=== PATIENT | male | born 1940 | race Caucasian/White ===

== ENCOUNTER 2020-04-03 09:19 | Observation (INO) | payer MEDICARE, OTHER, SELFPAY ==
[2020-04-02 22:02] LABS: Glucose Point of Care 231 (65-105)
--- NOTE | 2020-04-02 22:03 | PC.NURSE ---
This patient, Oswaldo Espinosa, was admitted to Intensive Care Unit-11. Patient/family oriented to hospital policies and general routines including ID bracelet, bed and alarms, visiting hours, pain management, procedures, bathroom and other care routines, personal items, smoking policy, room service/diet, and visiting hours. Valuables list has been completed. Information on how to activate the Rapid Response Team has been discussed. Patient/Family are encouraged to report perceived risks to care and to ask questions if they do not understand what they are told or what they should do.
[2020-04-02 22:27] LABS: Anion Gap 14 mmol/L (8-16); Blood Urea Nitrogen 23 mg/dL (9-20); Calcium 9.4 mg/dL (8.4-10.2); Carbon Dioxide 19 mmol/L (22-30); Chloride 103 mmol/L (98-107); Estimated Glomerular Filt Rate > 60; Glucose 232 mg/dL (75-110); Magnesium 2.7 mg/dL (1.6-2.3); Phosphorus 3.1 mg/dL (2.5-4.5); Potassium 4.9 mmol/L (3.4-5.0); Sodium 136 mmol/L (137-145)
[2020-04-02 22:33] VITALS: BMI 25.9
[2020-04-02 22:41] LABS: Add Urine Microscopic? YES; Appearance Urine Clear (Clear); Bacteria Urine Trace /hpf; Bilirubin Urine Negative (Negative); Blood Urine Negative (Negative); Color Urine Straw (Yellow); Glucose Urine UA 3+ mg/dL (Negative); Ketones Urine 2+ mg/dL (Negative); Leukocyte Esterase Ur Negative LEU/UL (NEGATIVE); Mucus Urine Rare /lpf; Nitrate Urine Negative (Negative); Protein Urine Negative (Negative); Specific Grav Ur 1.026 (1.001-1.035); Urobilinogen Urine Negative mg/dL (<2.0); WBC Urine 0-3 /hpf (0-3)
[2020-04-02 22:53] VITALS: BP 148/77; PULSE 110; RESP 14; TEMP 36.9; O2SAT 100
[2020-04-02] MEDS: KCL 20 MEQ/D5/0.45% SOD CHL 1,000 ML 150 ML IV CONT (23:02)
[2020-04-02] MEDS: INSULIN HUMAN REGULAR (*BKC) 100 UNITS in SODIUM CHLORIDE 0.9% IV 99 ML IV CONT (23:02)
--- NOTE | 2020-04-02 23:08 | PM.IMHP ---
H&P: HPI History of Present Illness Date/Time: 04/02/20 23:08 Chief complaint: vomiting, high blood sugars Narrative: Oswaldo Espinosa is a 79 year old male with a past medical history of type 2 diabetes mellitus manage has type 1 with prior episodes of DKA who presented to [facility] due to nausea vomiting and high blood sugars. Source of information is records from outside facility and patient report. Patient is only a fair historian and seems recalcitrant to provide information. the patient reports that he thinks he may have missed his dose of Lantus the night before. The patient reported to the outside ER that he started having vomiting on the evening of the . His vomiting started after he had eaten lasagna. He is unsure if he had taken his Lantus the evening before. He denies any abdominal pain. He has not had any coffee-ground emesis or hematemesis. He denies any ill contacts. His did not become ill when eating the same meal. He states that he will intermittently forgets to take his Lantus but claims he does not have any difficulties with his memory.. He has been on insulin for his diabetes since the 1980s. He reports that his sugars have been running on the high side . he states that his glucoses have been running in the 200s. His hemoglobin A1c is currently 10.6 which correlates to a glucose of 258. He denies any dysuria or changes in urinary frequency. He has not had any cough congestion, rhinorrhea, odynophagia, dysphagia, headache or visual changes. He denies any loss of sense of taste or smell. He has not been having any fevers or chills. He does have decreased sensation to his feet but denies having any foot wounds. The patient's glucose on arrival to the outside facility was 743. His anion gap was 14. His potassium was elevated to 5.9. Sodium was 133. BUN was elevated 28 creatinine was normal at 1.12. He had a white count of 7200 hemoglobin of 12.7 with 215,000 platelets. He had 88% neutrophils and 5 bands. His UA demonstrated high glucose and high ketones but was otherwise unremarkable. His blood sugar prior to transfer to our facility was down to 252. Beta hydroxybutyrate level at the outside hospital was elevated 10.6 within normal cut off of 0.27 he had an ABG performed which demonstrated pH of 7.195 pCO2 36 PO2 of 54 bicarb of 13 the patient received 2 L normal saline bolus at the outside ER and was started on insulin drip. Review of Systems Review of Systems: Narrative: 12 systems were reviewed with pertinent positives and negatives per HPI. Except as documented in the HPI, all other systems were reviewed and are negative. [facility] Past Medical History Medical History (Updated 04/03/20 @ 06:57 by Wanda Carcamo DO) Diabetes mellitus, type II Treated as type 1 Diabetic peripheral neuropathy Essential hypertension GERD (gastroesophageal reflux disease) Hypercholesterolemia Surgical History Surgical History (Updated 04/02/20 @ 23:47 by Wanda Carcamo DO) H/O bilateral cataract extraction Hx of tonsillectomy Family History Family History (Updated 04/03/20 @ 03:33 by Wanda Carcamo DO) Father Lymphoma Mother Diabetes mellitus Social History Social History (Updated 04/03/20 @ 03:34 by Wanda Carcamo DO) Smoking status: Never smoker Alcohol intake: current Alcohol use details: He drinks an occasional glass a wine with dinner about once a month. Substance use: never Living arrangements: with family Additional living arrangements comments: he lives with his of 40 years in [facility]. He has 2 adult children who are healthy. 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 Spiritual care concerns: No Meds Home Medications and Allergies Home Medications M
[2020-04-02 23:22] LABS: Hemoglobin A1C 10.6 % (<5.7)
[2020-04-03] VITALS (7 sets, daily range): BP systolic 112–155; BP diastolic 58–88; PULSE 77–110; RESP 14–22; TEMP 36.2–36.9; O2SAT 90–96
[2020-04-03 00:05] LABS: Glucose Point of Care 225 (65-105)
[2020-04-03 01:03] LABS: Glucose Point of Care 211 (65-105)
[2020-04-03 02:04] LABS: Glucose Point of Care 202 (65-105)
[2020-04-03 02:50] LABS: Anion Gap 6 mmol/L (8-16); Blood Urea Nitrogen 21 mg/dL (9-20); Calcium 8.2 mg/dL (8.4-10.2); Carbon Dioxide 23 mmol/L (22-30); Chloride 105 mmol/L (98-107); Estimated CRCL calculation 88 ml/min; Estimated Glomerular Filt Rate > 60; Glucose 224 mg/dL (75-110); Potassium 4.5 mmol/L (3.4-5.0); Sodium 134 mmol/L (137-145)
[2020-04-03 03:24] LABS: Glucose Point of Care 181 (65-105)
[2020-04-03] MEDS: SODIUM CHLORIDE 0.9% IV 1,000 ML 100 ML IV CONT (04:33)
[2020-04-03] MEDS: INSULIN GLARGINE (*BKC) 100 UNITS/ML 20 UNITS SUB-Q ×2 (05:08→17:27)
[2020-04-03 07:37] LABS: Anion Gap 8 mmol/L (8-16); Blood Urea Nitrogen 20 mg/dL (9-20); Calcium 8.5 mg/dL (8.4-10.2); Carbon Dioxide 22 mmol/L (22-30); Chloride 103 mmol/L (98-107); Estimated CRCL calculation 76 ml/min; Estimated Glomerular Filt Rate > 60; Glucose 181 mg/dL (75-110); Potassium 4.2 mmol/L (3.4-5.0); Sodium 133 mmol/L (137-145)
[2020-04-03 08:16] LABS: Glucose Point of Care 191 (65-105)
--- NOTE | 2020-04-03 08:38 | WPDCNINT ---
Assessment and Plan Assessment and plan (1) DKA, type 2, not at goal: Code(s): E11.10 - Type 2 diabetes mellitus with ketoacidosis without coma Status: Acute Assessment and Plan: patient presented with nausea, vomiting, hyperglycemia at [facility], found to be in DKA and was transferred to the ICU at [facility] for further management. - Was started on insulin infusion and given IV fluids here in the ICU - anion gap has closed, blood sugars better - patient was transition to long-acting insulin and sliding scale insulin along with Accu-Cheks - hemoglobin A1c is 10.6 - patient may have been a little noncompliant with his insulin, - started on diabetic diet (2) GERD (gastroesophageal reflux disease): Code(s): K21.9 - Gastro-esophageal reflux disease without esophagitis Status: Acute Assessment and Plan: continue Protonix (3) Hypercholesteremia: Code(s): E78.00 - Pure hypercholesterolemia, unspecified Status: Acute Assessment and Plan: continue atorvastatin (4) Essential (primary) hypertension: Code(s): I10 - Essential (primary) hypertension Status: Acute Assessment and Plan: continue atenolol Additional Plan discussed with patient updated with his condition and plan of care. He is aware that he would be transferring to medical floor code status: Full code Critical time spent: 38 minutes Due to a high probability of clinically significant, life threatening deterioration, the patient required my highest level of preparedness to intervene emergently and I personally spent this critical care time directly and personally managing the patient. This critical care time included obtaining a history; examining the patient; pulse oximetry; ordering and review of studies; arranging urgent treatment with development of a management plan; evaluation of patient's response to treatment; frequent reassessment; and discussions with other providers. It was exclusive of separately billable procedures and treating other patients and teaching time. Please see Assessment and Plan section and the rest of the note for further information on patient assessment and treatment Front End Drupal Developer Consult Note Consult date: 04/03/20 Time Seen: 06:54 Reason for consult: DKA, nausea, vomiting, elevated blood sugars HPI: Oswaldo Espinosa is a 79 year old male with significant past medical history of diabetes on insulin, diabetic peripheral neuropathy, essential hypertension, GERD, hypercholesterolemia presented to the ED at [facility] on 04/02/2020 ED according the records started vomiting after he ate some lasagna. Patient may have for guarded take his Lantus. His denies any coffee-ground emesis or hematemesis. Patient did say that he intermittently forgets to take his Lantus. His sugars have been running on the higher side recently. He denies any dysuria, changes in urinary frequency. Very cough, congestion, chest pain, diarrhea, abdominal pain. In the ED patient also denies any fevers or chills. Blood sugars at the outside facility 743 within and gap 14. Patient is given IV fluids and started on insulin drip after he arrived at [facility]. Patient seen and examined this morning. Anion gap is closed, patient has been transitioned to long-acting insulin and sliding scale insulin. Patient denies any nausea, vomiting, abdominal pain, chest pain, shortness of breath, cough. Patient has been afebrile, adequate urine output, hemodynamically stable Review of Systems Review of Systems: All systems reviewed & are unremarkable except as noted in HPI and below PMFSH Past Medical History Medical History (Updated 04/03/20 @ 08:50 by Nomi Gusman MD) Diabetes mellitus, type II Treated as type 1 Diabetic peripheral neuropathy Essential hypertension GERD (gastroesophageal reflux disease) Hypercholesterolemia Surgical History Surgical History
[2020-04-03] MEDS: PANTOPRAZOLE 40 MG TABLET PO (09:24)
[2020-04-03] MEDS: atenoloL 25 MG TABLET 50 MG PO ×2 (09:24→17:20)
[2020-04-03] MEDS: ASPIRIN 81 MG CHEWABLE TABLET PO (09:25)
[2020-04-03] MEDS: INSULIN ASPART (*BKC) 100 UNITS/ML 7 UNITS SUB-Q ×3 (09:26→17:21)
[2020-04-03 11:28] LABS: Glucose Point of Care 234 (65-105)
[2020-04-03] MEDS: INSULIN ASPART (*BKC) 100 UNITS/ML SUB-Q (12:06)
--- NOTE | 2020-04-03 16:10 | PC.NURSE ---
This patient, Oswaldo Espinosa, was transferred to [facility] on 04/03/20 at 1550. Personal belongings sent with patient. Report given to Tatianna COHEN. Appropriate documentation sent with patient.
[2020-04-03 16:58] LABS: Glucose Point of Care 149 (65-105)
--- NOTE | 2020-04-03 17:34 | PM.IMPN ---
Progress Note: A&P Assessment and Plan (1) DKA, type 2, not at goal: Code(s): E11.10 - Type 2 diabetes mellitus with ketoacidosis without coma Status: Acute Assessment and Plan: due to non adherence with medication regimen. DKA resolved pt now on medical floor. (2) Apnea: Code(s): R06.81 - Apnea, not elsewhere classified Status: Acute Assessment and Plan: patient denies a history of obstructive sleep apnea. Will order apnea link on discharge Subjective Date/time seen: 04/03/20 17:34 Interval history: 79 year old male with a past medical history of type 2 diabetes mellitus manage has type 1 with prior episodes of DKA who presented to [facility] due to nausea vomiting and high blood sugars. Pt has been transfered out of icu to the medical floor hopeful discharge tomorrow. Review of Systems Review of Systems: All systems reviewed & are unremarkable except as noted in HPI and below Exam Const: General: cooperative and healthy appearing; No in distress Nutritional Appearance: overweight Orientation/consciousness: oriented to person HENMT: Head: normal to inspection Resp: Effort & Inspection: no respiratory distress Auscultation: no rhonchi and no wheezes Cardio: Rate: regular rate Rhythm: regular rhythm GI: Inspection: normal to inspection GI Palp: No abdominal tenderness, No Guarding due to palpation present (GI) and No Hepatomegaly present Auscultation: normal bowel sounds Neuro: General: oriented to person Objective Data Vital Signs Vital Signs: Vital Signs - 24 hr 04/02/20 22:53 04/03/20 00:00 04/03/20 02:00 Temperature 36.9 C Pulse Rate 110 H 109 H 110 H Respiratory Rate 14 18 Blood Pressure 148/77 H 137/88 Pulse Oximetry 100 92 04/03/20 04:00 04/03/20 06:00 04/03/20 08:00 Temperature 36.9 C Pulse Rate 100 87 103 H Respiratory Rate 18 22 H 14 Blood Pressure 129/70 155/82 H 152/83 H Pulse Oximetry 90 94 92 04/03/20 17:20 Temperature Pulse Rate 82 Respiratory Rate Blood Pressure Pulse Oximetry Intake/Output Intake/Output: Intake & Output 03/31/20 04/01/20 04/02/20 04/03/20 23:59 23:59 23:59 23:59 Intake Total 1840 Output Total 800 Balance 1040 Meds/Results Medications: Active Medications Generic Name Dose Route Start Last Admin Trade Name Freq PRN Reason Stop Dose Admin Aspirin 81 mg 04/03/20 09:00 04/03/20 09:25 Aspirin Chewable PO 81 mg DAILY DAIANA Administration Atenolol 50 mg 04/03/20 09:00 04/03/20 17:20 Tenormin PO 50 mg BID DAIANA Administration Atorvastatin Calcium 20 mg 04/03/20 21:00 Lipitor PO HS DAIANA Dextrose 12.5 gm 04/02/20 20:35 Dextrose 50% Syringe IV PUSH PRN PRN Hypoglycemia Protocol Glucagon 1 mg 04/02/20 20:35 Glucagon For Inj IM PRN PRN Hypoglycemia Protocol Glucose 15 gm 04/02/20 20:35 Glutose 15 PO PRN PRN Hypoglycemia Protocol Dextrose 1,000 mls @ 100 mls/hr 04/02/20 20:35 Dextrose 5% 1,000 Ml IVPB PRN PRN Hypoglycemia Protocol Insulin Aspart 7 units 04/03/20 08:00 04/03/20 17:21 Novolog SUB-Q 7 units TIDWM DAIANA Administration Insulin Aspart 3 - 6 units 04/03/20 08:00 04/03/20 17:22 Novolog SUB-Q Not Given TIDWM DAIANA Protocol Insulin Glargine 20 units 04/03/20 18:00 04/03/20 17:27 Lantus SUB-Q 20 units QPM DAIANA Administration Pantoprazole Sodium 40 mg 04/03/20 09:00 04/03/20 09:24 Protonix PO 40 mg QAM DAIANA Administration Labs Labs: Laboratory Results - last 24 hr 04/02/20 04/02/20 04/02/20 22:00 22:04 22:24 Sodium 136 L Potassium 4.9 Chloride 103 Carbon Dioxide 19 L Anion Gap 14 BUN 23 H D Creatinine 0.80 Estim Creat Clear Calc Not Reportable Estimated GFR > 60 Glucose 232 H POC Capillary Glucose 231 H Hemoglobin A1c Calcium 9.
[2020-04-03] MEDS: ATORVASTATIN 20 MG TABLET PO (20:07)
[2020-04-03 21:24] LABS: Glucose Point of Care 294 (65-105)
[2020-04-04 05:40] VITALS: BP 128/63; PULSE 67; RESP 16; TEMP 35.9; O2SAT 96
[2020-04-04 06:14] LABS: Anion Gap 6 mmol/L (8-16); Blood Urea Nitrogen 20 mg/dL (9-20); Calcium 8.5 mg/dL (8.4-10.2); Carbon Dioxide 26 mmol/L (22-30); Chloride 102 mmol/L (98-107); Estimated CRCL calculation 67 ml/min; Estimated Glomerular Filt Rate > 60; Glucose 191 mg/dL (75-110); Potassium 3.8 mmol/L (3.4-5.0); Sodium 134 mmol/L (137-145)
[2020-04-04 08:06] LABS: Glucose Point of Care 151 (65-105)
[2020-04-04] MEDS: INSULIN ASPART (*BKC) 100 UNITS/ML 7 UNITS SUB-Q ×2 (08:39→11:42)
[2020-04-04 08:41] VITALS: PULSE 72
[2020-04-04] MEDS: atenoloL 25 MG TABLET 50 MG PO (08:41)
[2020-04-04] MEDS: ASPIRIN 81 MG CHEWABLE TABLET PO (08:41)
[2020-04-04] MEDS: PANTOPRAZOLE 40 MG TABLET PO (08:42)
[2020-04-04 10:15] VITALS: BMI 25.8
--- NOTE | 2020-04-04 11:13 | PM.DS ---
DS: Admitting Diagnosis Admitting Diagnosis Admitting Diagnosis: vomiting, high blood sugars DS: Discharge Diagnosis Discharge Diagnosis (1) DKA, type 2, not at goal: Code(s): E11.10 - Type 2 diabetes mellitus with ketoacidosis without coma Status: Acute Assessment and Plan: Due to non adherence with medication regimen. DKA resolved, pt out of icu, pt now on medical floor. Continue home regime, pt is stable for discharge. (2) Apnea: Code(s): R06.81 - Apnea, not elsewhere classified Status: Acute Assessment and Plan: Patient denies a history of obstructive sleep apnea. Will order apnea link on discharge DS: Summary Time Spent with Patient Time attestation: Total time spent providing and/or coordinating discharge services:38 minutes on day of discharge Exam Const: General: cooperative and healthy appearing; No in distress Nutritional Appearance: overweight Orientation/consciousness: oriented to person HENMT: Head: normal to inspection Resp: Effort & Inspection: no respiratory distress Auscultation: no rhonchi and no wheezes Cardio: Rate: regular rate Rhythm: regular rhythm GI: Inspection: normal to inspection Auscultation: normal bowel sounds Neuro: General: oriented to person DS: Data Data Completed and Pending Labs on day of discharge: Labs from last 24 hours 04/04/20 04/04/20 04/03/20 07:48 05:51 20:05 Sodium 134 L Potassium 3.8 Chloride 102 Carbon Dioxide 26 Anion Gap 6 L BUN 20 Creatinine 0.80 Estim Creat Clear Calc 67 Estimated GFR > 60 Glucose 191 H POC Capillary Glucose 151 H 294 H Calcium 8.5 04/03/20 04/03/20 16:55 11:26 Sodium Potassium Chloride Carbon Dioxide Anion Gap BUN Creatinine Estim Creat Clear Calc Estimated GFR Glucose POC Capillary Glucose 149 H 234 H Calcium Discharge Plan Discharge Attending physician on discharge: Michelle Vera Discharging Clinician: Michelle Vera Anticipated Discharge Date/Time: 04/04/20 11:09 Patient Disposition: Home, Self-Care Activity: as tolerated Diet: diabetic Discharge Instructions: PCP to order sleep apnea test for patient at patients convenience I think it would be beneficial Patient Instructions: Antibiotic Form Stand Alone Forms: General Discharge Information Follow-up/Referrals: PHYSICIAN,REIMBURSEMENT COUNSELOR [Primary Care Provider] - (PCP [facility] D[facility] ) Discharge Medications: Continued atenolol 25 mg Tablet 50 mg PO BID RF: 0 aspirin 81 mg Tablet,Chewable 81 mg PO DAILY RF: 0 Lantus U-100 Insulin 100 unit/mL Solution 20 unit SUBCUT QPM RF: 0 insulin aspart U-100 [Novolog U-100 Insulin aspart] 100 unit/mL Solution 7 unit SUBCUT TID RF: 0 atorvastatin 20 mg Tablet 20 mg PO HS RF: 0 pantoprazole 40 mg Tablet,Delayed Release (Dr/Ec) 40 mg PO QAM RF: 0 Date of admission: 04/02/20 21:45 Primary Care Provider: PHYSICIAN,REIMBURSEMENT COUNSELOR Admitting Provider: Wanda Carcamo Attending physician on admission: Wanda Carcamo Condition: Stable
[2020-04-04] MEDS: INSULIN ASPART (*BKC) 100 UNITS/ML SUB-Q (11:42)
[2020-04-04 12:01] LABS: Glucose Point of Care 214 (65-105)
== END 2020-04-04 14:00 | disposition home or self-care (01) ==
LOC: ANHICU 13:32 → ANH2MED 18:09 → ANHICU 04-07 16:54
PROVIDERS: Admitting Provider Internal Medicine; Visit Provider Family Medicine
DX: E11.10 Type 2 diabetes mellitus with ketoacidosis without coma (principal); R06.81 Apnea, not elsewhere classified; E11.42 Type 2 diabetes mellitus with diabetic polyneuropathy; E78.00 Pure hypercholesterolemia, unspecified; I10 Essential (primary) hypertension; K21.9 Gastro-esophageal reflux disease without esophagitis; Z79.4 Long term (current) use of insulin
CPT/HCPCS: 36415; 80048; 81001; 83036; 83735; 84100; 94762; 96365; 96366; 96368; A9270; G0378; G0379; J1815; J3480; J7030

== ENCOUNTER 2021-04-20 14:46 | Emergency (ER) | payer MEDICARE, OTHER, SELFPAY ==
--- NOTE | ~2021-04-20 | CT_ITS ---
EXAMINATION: CT brain wo con EXAM DATE: 04/20/2021 16:52 INDICATION: Dizziness. TECHNIQUE: Spiral CT of the head was performed without contrast. Axial, coronal and sagittal images were reviewed. The dose-length product (DLP) for this examination was 605.33 mGy-cm. The exposure w as tailored according to patient size, and iterative reconstruction (ASIR) was used as additional dos e reduction technique. There is no prior study for comparison. FINDINGS: There is no acute intraparenchymal hemorrhage. No evidence of intraparenchymal brain mass lesion. No evidence of acute infarction. Please note that initial head CT has limited sensitivity f or small or acute infarctions. Punctate old left thalamic lacunar infarction. There is mild to mode rate periventricular and subcortical hypodensity, nonspecific but probably related to small vessel is chemic disease. There is moderate prominence of the sulci and ventricles related to cerebral atroph y. There is intracranial carotid arteriosclerosis. There are no extra-axial collections. There is no mass effect or midline shift. Patient has had bilateral ocular lens surgery. Soft tissue is unr emarkable. The visualized sinuses and mastoid air cells are well aerated. IMPRESSION: 1. No acute intracranial findings. 2. Chronic age related findings. 3. Old left thalamic lacunar infarction. Reviewed, dictated and finalized at location B.
--- NOTE | ~2021-04-20 | XR_ITS ---
EXAMINATION: XR chest 2V EXAM DATE: 04/20/2021 15:39 INDICATION: Weakness, dizziness, diaphoretic today HX essential hypertension. TECHNIQUE: Frontal and lateral projections of the chest obtained and reviewed. There is no prior betzaida dy for comparison. FINDINGS: The lungs are clear. There are no pleural effusions. The cardiomediastinal silhouette is within normal limits. There is no pneumothorax suspected. The bones and soft tissues are unremarkab le. IMPRESSION: No acute cardiopulmonary findings. Reviewed, dictated and finalized at location B.
[2021-04-20 14:56] LABS: Glucose Point of Care 233 mg/dl (65-105)
[2021-04-20 15:03] VITALS: BP 123/70; PULSE 70; RESP 17; TEMP 36.3; O2SAT 98
--- NOTE | 2021-04-20 15:21 | ECG_ITS ---
Measurements Intervals [place] Rate: 70 P: 55 PA: 182 QRS: 43 QRSD: 104 T: 68 QT: 441 QTc: 479 Interpretive Statements SINUS RHYTHM INCOMPLETE RIGHT BUNDLE BRANCH BLOCK BASELINE ARTIFACT- V2-V5 BORDERLINE ECG Electronically Signed On 04-20-2021 15:26:46 CDT by Rasta Knox D.O.
--- NOTE | 2021-04-20 16:08 | ED.WEAKNESS ---
HPI - Weakness General Chief complaint: Weakness Stated complaint: low bp Time Seen by Provider: 04/20/21 15:20 Source: patient Mode of arrival: EMS Limitations: no limitations History of Present Illness HPI Narrative: This is a 80 year old male that presents to the ER for an episode of lightheadedness today. Reports he was feeling kind of lightheaded going into a restaurant to eat. Reports he tried to eat something and had no appetite. Reports he felt like he needed to have a bowel movement so he went to the restroom. He continued to feel very lightheaded and they called EMS to have his evaluated. Reportedly patient was diaphoretic and had blood pressure in the 90s on arrival. Patient reports feeling generally unwell currently, but has no specific complaints. Denies fever, chest pain, shortness of breath, palpitations, vomiting, or dysuria. Related Data Home Medications Medication Instructions Recorded Confirmed aspirin 81 mg PO DAILY 07/02/19 04/02/20 atenolol 50 mg PO BID 07/02/19 04/02/20 Lantus U-100 Insulin 20 unit SUBCUT QPM 04/02/20 04/02/20 atorvastatin 20 mg PO HS 04/02/20 04/02/20 insulin aspart U-100 [Novolog 7 unit SUBCUT TID 04/02/20 04/02/20 U-100 Insulin aspart] pantoprazole 40 mg PO QAM 04/02/20 04/02/20 Allergies Allergy/AdvReac Type Severity Reaction Status Date / Time grass pollen Allergy Mild Nasal Verified 04/02/20 22:06 Discharge Review of Systems Review of Systems: CONSTITUTIONAL: Denies fever CARDIOVASCULAR: Denies chest pain, palpitations RESPIRATORY: Denies dyspnea. GASTROINTESTINAL: Denies abdominal pain, nausea, vomiting GENITOURINARY: Denies dysuria NEUROLOGIC: Reports generalized weakness. All systems reviewed & are unremarkable except as noted in HPI and below [facility] Past Medical History Medical History (Updated 04/20/21 @ 18:40 by Kiesha Wiggins PA-C) Diabetes mellitus, type II Treated as type 1 Diabetic peripheral neuropathy Essential hypertension GERD (gastroesophageal reflux disease) Hypercholesterolemia Surgical History Surgical History (Updated 04/02/20 @ 23:47 by Wanda Carcamo DO) H/O bilateral cataract extraction Hx of tonsillectomy Family History Family History (Updated 04/03/20 @ 03:33 by Wanda Carcamo DO) Father Lymphoma Mother Diabetes mellitus Social History Social History (Updated 04/03/20 @ 03:34 by Wanda Carcamo DO) Smoking status: Never smoker Alcohol intake: current Alcohol use details: He drinks an occasional glass a wine with dinner about once a month. Substance use: never Additional living arrangements comments: he lives with his of 40 years in [facility]. He has 2 adult children who are healthy. 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 Spiritual care concerns: No Exam Narrative: GENERAL: Elderly, well-nourished, and in no acute distress. HEAD: Normocephalic, atraumatic. EYES: PERRLA and EOMI. ENT: Nares clear, no rhinorrhea or epistaxis. Mucous membranes moist. Oropharynx without tonsillar hypertrophy exudate or other lesions. Bilateral TMs pearly arteaga non-bulging NECK: Supple. No adenopathy or masses. No carotid bruits or JVD CHEST: Clear to auscultation. No respiratory distress. No wheezes rales or rhonchi HEART: Regular rate and rhythm. No murmur heard. Normal peripheral pulses. ABDOMEN: Soft, nontender, nondistended, normal active bowel sounds. EXTREMITIES: Normal range of motion. No edema. Strength equal in bilateral upper and lower extremities (5/5) SKIN: Warm, dry, no rash. NEURO: No focal deficits. Alert and oriented x3. Cranial nerves II to XII grossly intact PSYCH: Normal mood and affect Course Vital Signs Vital signs: Vital Signs Temperature 97.4 F L 04/20/21 15:03 Pulse Rate 70 04/20/21 15:03
[2021-04-20] MEDS: SODIUM CHLORIDE 0.9% IV 1,000 ML 999 ML IV CONT (16:16)
--- NOTE | 2021-04-20 16:16 | PC.NURSE ---
Pt unable to give urine sample at this time. Informed pt of the importance of getting urine.
[2021-04-20 16:26] LABS: Basophils Percent Auto 0.5 % (0.2-1.2); Eosinophils Absolute Auto 0.1 K/mm3 (0-0.3); Eosinophils Percent Auto 1.2 % (0-4.4); Hematocrit 41.5 % (42.0-52.0); Hemoglobin 13.5 g/dL (14.0-18.0); Immature Granulocyte Absolute 0.03 K/mm3 (0.00-0.031); Immature Granulocyte Percent A 0.4 % (0-0.5); Lymphocytes Percent Auto 15.5 % (18.3-44.2); Mean Corpuscular HGB Conc 32.5 g/dl (32-36); Mean Corpuscular Volume 89.1 fl (80-100); Mean Platelet Volume 11.2 fl (7.4-10.4); Monocytes Absolute Auto 0.6 K/mm3 (0.1-0.6); Monocytes Percent Auto 7.3 % (2.6-8.5); Neutrophils Absolute Auto 5.8 K/mm3 (1.3-6.7); Neutrophils Percent Auto 75.1 % (45.5-73.1); Platelet Count Result 199 k/mm3 (150-375); Red Blood Count 4.66 M/mm3 (4.6-6.20); Red Cell Distribution Width 12.6 % (11.5-14.5); White Blood Count 7.8 K/mm3 (4.5-10.0)
[2021-04-20 16:43] LABS: Alanine Aminotransferase 17 U/L (4-50); Albumin Level 4.2 g/dL (3.5-5.1); Alkaline Phosphatase 50 U/L (38-126); Anion Gap 15 mmol/L (8-16); Aspartate Amino Transferase 22 U/L (17-59); Bilirubin,Total 0.8 mg/dL (0.2-1.3); Blood Urea Nitrogen 26 mg/dL (9-20); Calcium 9.8 mg/dL (8.4-10.2); Carbon Dioxide 21 mmol/L (22-30); Chloride 101 mmol/L (98-107); Estimated CRCL calculation 49 ml/min; Estimated Glomerular Filt Rate > 60; Glucose 270 mg/dL (65-110); Potassium 3.6 mmol/L (3.4-5.0); Sodium 137 mmol/L (137-145)
[2021-04-20 17:21] VITALS: BP 144/79; PULSE 83; RESP 13; O2SAT 100
[2021-04-20 17:32] LABS: Lipase 23 U/L (23-300)
[2021-04-20 17:52] LABS: Add Urine Microscopic? YES; Appearance Urine Clear (Clear); Bilirubin Urine Negative (Negative); Blood Urine Negative (Negative); Color Urine Yellow (Yellow); Glucose Urine UA 3+ mg/dL (Negative); Ketones Urine Trace mg/dL (Negative); Leukocyte Esterase Ur Negative LEU/UL (Negative); Mucus Urine Rare /lpf; Nitrate Urine Negative (Negative); Protein Urine 1+ mg/dL (Negative); RBC Urine 0-2 /hpf (0-2); Squamous Epithelial Cell Urine Rare /hpf (Few); Urobilinogen Urine Negative mg/dL (<2.0); WBC Urine 0-3 /hpf
[2021-04-20 18:15] VITALS: BP 105/52; BP 111/64; BP 116/61; PULSE 85; PULSE 91
== END 2021-04-20 19:01 | disposition home or self-care (01) ==
PROVIDERS: Physician Assistant; Emergency Provider Family Medicine
DX: R55 Syncope and collapse (principal); K21.9 Gastro-esophageal reflux disease without esophagitis; E78.00 Pure hypercholesterolemia, unspecified; E11.42 Type 2 diabetes mellitus with diabetic polyneuropathy; Z79.4 Long term (current) use of insulin; Z79.82 Long term (current) use of aspirin; Z98.42 Cataract extraction status, left eye; Z98.41 Cataract extraction status, right eye; I45.10 Unspecified right bundle-branch block
CPT/HCPCS: 36415; 70450; 71046; 80053; 81001; 82948; 83690; 85025; 93005; 96360; 99284; J7030

== ENCOUNTER 2021-12-08 12:53 | Emergency (ER) | payer MEDICARE, OTHER, SELFPAY ==
[2021-12-08] VITALS (9 sets, daily range): BP systolic 108–142; BP diastolic 60–90; PULSE 65–78; RESP 16–18; O2SAT 92–100
--- NOTE | ~2021-12-08 | CT_ITS ---
EXAMINATION: CT brain wo con DATE: 12/08/2021 13:49 INDICATION: Dizziness. Somnolence. Weakness. TECHNIQUE: Computed tomography (CT) of the head was performed without intravenous contrast. The mA wa s adjusted according to patient size. Iterative reconstruction technique was employed. The dose-lengt h product was 605.33 mGy-cm. COMPARISON: Head CT 04/20/2021 FINDINGS: There is an old lacunar infarct in left thalamus. There are scattered areas of low attenuat ion in the cerebral white matter. There is no intracranial hemorrhage, acute infarction, or abnormal intracranial mass lesion. The ventricles are normal in size. There are likely changes of ocular lens replacement surgeries. There is mild mucosal thickening in the paranasal sinuses. There is a trace le ft mastoid effusion. IMPRESSION: 1. 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 2. Stable moderate nonspecific cerebral white matter disease, which likely represents chronic small v essel ischemic disease. Reviewed, dictated and finalized at location B. IMPRESSION: 1. 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 2. Stable moderate nonspecific cerebral white matter disease, which likely repr esents chronic small vessel ischemic disease.
--- NOTE | ~2021-12-08 | CT_ITS ---
EXAMINATION: CTA chest PE protocol DATE: 12/08/2021 16:22 INDICATION: hypoxia TECHNIQUE: Computed tomography angiography (CTA) of the chest was performed with 100 mL Omnipaque-350 intravenous contrast timed to evaluate the pulmonary arteries. Coronal maximum intensity projection 3D-reconstructions were created by the technologist. The dose-length product (DLP) was 360.69 mGy-cm. Automated exposure control and iterative reconstruction technique were employed. COMPARISON: None. FINDINGS: Study quality: . Pulmonary arteries: No pulmonary emboli detected. Thoracic aorta: Normal. Left vertebral artery origin off the arch. Lung parenchyma and airways: Centrilobular nodular opacities, most pronounced in the right lower lobe , also present to a lesser extent in the right middle lobe and left lower lobe, with additional tree- in-bud opacities. Scattered coarse reticular opacities/scar in the right lung base. Thoracic inlet, axillae and chest wall: 3 cm hypodense right thyroid lobe nodule. Mediastinum: Normal. Heart and pericardium: Normal. Coronary artery calcifications: Moderate. Pleura: Unremarkable. Upper abdomen: No significant finding. Bones: No acute osseous finding. IMPRESSION: No CT evidence of acute pulmonary embolus. Infectious/inflammatory changes in the lungs, as can be se en with hypersensitivity pneumonitis, respiratory bronchiolitis, or infectious airways disease. 3 cm right thyroid nodule, recommend nonemergent outpatient thyroid ultrasound for further evaluation. Reviewed, dictated and finalized at location K. IMPRESSION: No CT evidence of acute pulmonary embolus. Infectious/inflammatory changes in t he lungs, as can be seen with hypersensitivity pneumonitis, respiratory bronchi olitis, or infectious airways disease. 3 cm right thyroid nodule, recommend non emergent outpatient thyroid ultrasound for further evaluation.
--- NOTE | ~2021-12-08 | XR_ITS ---
EXAMINATION: XR chest 2V Exam Date/Time: 12/08/2021 14:30 CDT CLINICAL HISTORY: hypoxia, NAUSEA. Comparison: 04/20/21. RESULT: Lines, tubes, and devices: None. Lungs and pleura: Clear. Cardiomediastinal silhouette: Stable cardiomediastinal silhouette. Other: No acute osseous or upper abdominal finding. IMPRESSION: No acute cardiopulmonary process Reviewed, dictated and finalized at location K.
--- NOTE | 2021-12-08 13:01 | ECG_ITS ---
Measurements Intervals [place] Rate: 65 P: 44 MS: 209 QRS: 10 QRSD: 103 T: 69 QT: 438 QTc: 456 Interpretive Statements SINUS RHYTHM INCOMPLETE RIGHT BUNDLE BRANCH BLOCK BASELINE WANDER- V4 BORDERLINE ECG Electronically Signed On 12-08-2021 13:28:55 CDT by Rasta Knox D.O.
[2021-12-08 13:13] LABS: Glucose Point of Care 310 mg/dl (65-105)
--- NOTE | 2021-12-08 13:16 | PC.NURSE ---
Pt noted to be 76% on room air, placed on oxygen at 2 lpm nc and ERP selena called to evaluate.
[2021-12-08 13:28] LABS: Alveolar/Arterial O2 Gradient 90.7 mmHg; Base Excess ABG -2.2 mEq/l (+/-2.0); Device NASAL CANNULA; Fractional Inspired Oxygen 28 %; HCO3 ABG 23.2 mEq/l (22.0-26.0); Modified Allen's Test Pass; Oxygen Content ABG 17.6 %vol (16.0-22.0); Oxygen Saturation ABG 89.6 % (95.0-100.0); Oxyhemoglobin 90.2 % THb (90.0-100.0); PCO2 ABG 42.2 mmHg (35.0-45.0); PO2 ABG 59.1 mmHg (80.0-100.0); PO2 FiO2 Ratio Arterial Blood 2.11 %; Site Drawn RIGHT RADIAL; Total Hemoglobin 13.9 g/dL (12.0-18.0); pH ABG 7.358 (7.350-7.450)
--- NOTE | 2021-12-08 13:41 | ED.WEAKNESS ---
HPI - Weakness General Chief complaint: Weakness Stated complaint: blood sugar problem Time Seen by Provider: 12/08/21 13:14 Source: patient History of Present Illness HPI Narrative: Patient presents with weakness. Patient was at home and they noted elevated blood sugar to the 300 gave him a dose of insulin shortly after that patient felt weak and was acting different. His symptoms were not resolving so he came to the ER for evaluation. Patient reports he feels weak all over and feels dizzy has no other complaints. He denies any chest pain or shortness of breath denies any nausea or vomiting or diarrhea. He reports this morning he was feeling well denies any recent fevers, cough, congestion. Related Data Home Medications Medication Instructions Recorded Confirmed aspirin 81 mg PO DAILY 07/02/19 04/02/20 atenolol 50 mg PO BID 07/02/19 04/02/20 Lantus U-100 Insulin 20 unit SUBCUT QPM 04/02/20 04/02/20 atorvastatin 20 mg PO HS 04/02/20 04/02/20 insulin aspart U-100 [Novolog 7 unit SUBCUT TID 04/02/20 04/02/20 U-100 Insulin aspart] pantoprazole 40 mg PO QAM 04/02/20 04/02/20 Allergies Allergy/AdvReac Type Severity Reaction Status Date / Time grass pollen Allergy Mild Nasal Verified 04/02/20 22:06 Discharge Review of Systems Review of Systems: CONSTITUTIONAL: Denies fever, chills, or sweats. EYES: Denies visual changes, redness, or discharge. ENT: Denies rhinorrhea, congestion, sore throat, or otalgia. CARDIOVASCULAR: Denies chest pain, palpitations, or edema. RESPIRATORY: Denies cough or dyspnea. GASTROINTESTINAL: Denies abdominal pain, nausea, vomiting, or diarrhea. GENITOURINARY: Denies dysuria or hematuria. SKIN: Denies rash or itching. MUSCULOSKELETAL: Denies back pain, joint pain, or myalgia. NEUROLOGIC: Denies headache, numbness, or focal weakness. PSYCHIATRIC: Denies anxiety or depression. All systems reviewed & are unremarkable except as noted in HPI and below PMFSH Past Medical History Medical History Diabetes mellitus, type II Treated as type 1 Diabetic peripheral neuropathy Essential hypertension GERD (gastroesophageal reflux disease) Hypercholesterolemia Surgical History Surgical History H/O bilateral cataract extraction Hx of tonsillectomy Family History Family History Father Lymphoma Mother Diabetes mellitus Social History Social History Smoking status: Never smoker Alcohol intake: current Alcohol use details: He drinks an occasional glass a wine with dinner about once a month. Substance use: never Additional living arrangements comments: he lives with his of [address] [facility]. He has 2 adult children who are healthy. 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 Spiritual care concerns: No Exam Narrative: GENERAL: Well-appearing, well-nourished, and in no acute distress. Appears to be sleeping but easily awoke HEAD: Normocephalic, atraumatic. EYES: PERRLA and EOMI. ENT: Nares clear, no rhinorrhea or epistaxis. Mucous membranes moist. NECK: Supple. No masses. No JVD CHEST: Clear to auscultation. No respiratory distress. No wheezes rales or rhonchi HEART: Regular rate and rhythm. No murmur heard. Normal peripheral pulses. ABDOMEN: Soft, nontender, nondistended, normal active bowel sounds. EXTREMITIES: Normal range of motion. No edema. SKIN: Warm, dry, no rash. NEURO: No focal deficits. Alert and oriented x3. PSYCH: Normal mood and affect. Course Reevaluation(s) Reevaluation #1: Patient reports feeling much improved and has no complaints. Family reports
[2021-12-08 13:42] LABS: Basophils Absolute Auto 0.1 K/mm3 (0.0-0.1); Basophils Percent Auto 0.6 % (0.2-1.2); Eosinophils Absolute Auto 0.1 K/mm3 (0-0.3); Hematocrit 42.9 % (42.0-52.0); Hemoglobin 13.7 g/dL (14.0-18.0); Immature Granulocyte Absolute 0.02 K/mm3 (0.00-0.031); Immature Granulocyte Percent A 0.2 % (0-0.5); Lymphocytes Absolute Auto 1.39 K/mm3 (0.9-3.2); Lymphocytes Percent Auto 14.3 % (18.3-44.2); Mean Corpuscular HGB Conc 31.9 g/dl (32-36); Mean Corpuscular Volume 90.9 fl (80-100); Mean Platelet Volume 11.8 fl (7.4-10.4); Monocytes Absolute Auto 0.7 K/mm3 (0.1-0.6); Neutrophils Absolute Auto 7.5 K/mm3 (1.3-6.7); Neutrophils Percent Auto 76.9 % (45.5-73.1); Platelet Count Result 209 k/mm3 (150-375); Red Blood Count 4.72 M/mm3 (4.6-6.20); Red Cell Distribution Width 12.2 % (11.5-14.5); White Blood Count 9.7 K/mm3 (4.5-10.0)
[2021-12-08 13:52] LABS: INR 0.9; Prothrombin Time 12.2 Seconds (11.1-14.7)
[2021-12-08 13:55] LABS: Partial Thromboplastin Time 25.1 SECONDS (22.3-36.8)
[2021-12-08 14:26] LABS: Beta-Hydroxybutyrate/Acetoacetate 0.29 mmol/L (0.02-0.27)
--- NOTE | 2021-12-08 14:42 | PC.NURSE ---
, richard , call with update
[2021-12-08] MEDS: SODIUM CHLORIDE 0.9% IV 1,000 ML 999 ML IV CONT (14:45)
[2021-12-08 15:54] LABS: Alanine Aminotransferase 16 U/L (4-50); Albumin Level 3.9 g/dL (3.5-5.1); Alkaline Phosphatase 56 U/L (38-126); Anion Gap 4 mmol/L (8-16); Aspartate Amino Transferase 22 U/L (17-59); Bilirubin,Total 0.6 mg/dL (0.2-1.3); Blood Urea Nitrogen 24 mg/dL (9-20); Calcium 8.9 mg/dL (8.4-10.2); Carbon Dioxide 27 mmol/L (22-30); Chloride 102 mmol/L (98-107); Estimated CRCL calculation 48 ml/min; Estimated Glomerular Filt Rate > 60; Glucose 300 mg/dL (65-110); Potassium 4.5 mmol/L (3.4-5.0); Sodium 133 mmol/L (137-145)
[2021-12-08 17:22] LABS: Appearance Urine Clear (Clear); Bilirubin Urine Negative (Negative); Blood Urine Negative (Negative); Color Urine Yellow (Yellow); Glucose Urine UA 3+ mg/dL (Negative); Ketones Urine Trace mg/dL (Negative); Leukocyte Esterase Ur Negative LEU/UL (Negative); Nitrate Urine Negative (Negative); Protein Urine Negative (Negative); Urobilinogen Urine 0.2 mg/dL (<2.0)
[2021-12-08 17:32] LABS: Bacteria Urine Trace /hpf; Mucus Urine Rare /lpf; RBC Urine 0-2 /hpf (0-2); Squamous Epithelial Cell Urine Rare /hpf (Few); WBC Urine 0-3 /hpf
[2021-12-08 17:41] LABS: SARS-CoV-2 RNA PCR Negative
--- NOTE | 2021-12-08 17:45 | PC.NURSE ---
Pt able to ambulate with room air and no assistance.
[2021-12-08 17:49] LABS: Add Urine Microscopic? YES
== END 2021-12-08 18:09 | disposition home or self-care (01) ==
PROVIDERS: Emergency Medicine; Emergency Provider Emergency Medicine
DX: J18.9 Pneumonia, unspecified organism (principal); R09.02 Hypoxemia; Z20.822 Contact with and (suspected) exposure to COVID-19; E11.42 Type 2 diabetes mellitus with diabetic polyneuropathy; I10 Essential (primary) hypertension; K21.9 Gastro-esophageal reflux disease without esophagitis; E78.00 Pure hypercholesterolemia, unspecified; Z79.82 Long term (current) use of aspirin; Z79.4 Long term (current) use of insulin; Z98.42 Cataract extraction status, left eye; Z98.41 Cataract extraction status, right eye; R90.82 White matter disease, unspecified; I45.10 Unspecified right bundle-branch block
CPT/HCPCS: 36415; 36600; 70450; 71046; 71275; 80053; 81001; 82010; 82805; 82948; 85025; 85610; 85730; 93005; 96360; 99284; C9803; J7030; Q9967; U0003; U0005

== ENCOUNTER 2023-10-09 13:56 | Inpatient (IN) | payer MEDICARE, OTHER, SELFPAY ==
[2023-10-09] VITALS (22 sets, daily range): BP systolic 64–122; BP diastolic 36–62; PULSE 87–110; RESP 13–24; TEMP 35.4–36.8; O2SAT 51–100; BMI 26.6
--- NOTE | ~2023-10-09 | CT_ITS ---
EXAMINATION: CT brain wo con DATE: 10/09/2023 23:25 INDICATION: Cerebral vascular accident. TECHNIQUE: Computed tomography (CT) of the head was performed without intravenous contrast. The mA wa s adjusted according to patient size. Iterative reconstruction technique was employed. The dose-lengt h product was 681.00 mGy-cm. COMPARISON: Head CT 12/08/2021 FINDINGS: There is an old infarct in the left thalamus. There is an old infarct in left temporal lobe . There are scattered areas of low attenuation in the cerebral white matter. The ventricles are augustus l in size. There is mild mucosal thickening in the paranasal sinuses. There are likely changes of ocu lar lens replacement surgeries. The mastoid air cells are normal. IMPRESSION: 1. Old infarcts in the left thalamus and left temporal lobe. 2. Stable moderate nonspecific cerebral white matter disease, which likely represents chronic small v essel ischemic disease. Reviewed, dictated and finalized at location E. R VEHICLE CLERK IMPRESSION: 1. Old infarcts in the left thalamus and left temporal lobe. 2. Stable moderate nonspecific cerebral white matter disease, which likely repr esents chronic small vessel ischemic disease.
--- NOTE | ~2023-10-09 | XR_ITS ---
EXAMINATION: XR chest 1V portable Exam Date/Time: 10/09/2023 14:42 NETWORK SUPPORT SPECIALIST HISTORY: aspiration Comparison: 12/08/2021. RESULT: Lines, tubes, and devices: None. Lungs and pleura: Mild diffuse reticular opacities. 0.9 x 1.9 cm smoothly marginated ovoid opacity p rojecting over the right lower lung. Minimal streaky bibasilar scar/atelectasis. Cardiomediastinal silhouette: Stable. Other: No acute osseous or upper abdominal finding. IMPRESSION: Mild interstitial edema. 1.4 cm ovoid opacity projecting over the right lower lung, pulmonary nodule versus artifact. Consider nonemergent but timely outpatient low-dose noncontrast CT of the chest for further evaluation. Reviewed, dictated and finalized at [facility] K. ORK SUPPORT SPECIALIST IMPRESSION: Mild interstitial edema. 1.4 cm ovoid opacity projecting over the right lower lung, pulmonary nodule eli brooks artifact. Consider nonemergent but timely outpatient low-dose noncontrast C T of the chest for further evaluation.
--- NOTE | ~2023-10-09 | US_ITS ---
EXAMINATION: US venous doppler [facility] DATE: 10/11/2023 15:52 INDICATION: Hip fracture. Lower extremity swelling/skin tautness. TECHNIQUE: Grayscale images without and with compression and Doppler images of the bilateral lower ex tremity veins were obtained. COMPARISON: None FINDINGS: The right common femoral vein, profunda (deep) femoral vein, femoral vein, popliteal vein, peroneal v ein, posterior tibial veins, gastrocnemius vein, and greater saphenous vein are patent. The left common femoral vein, profunda (deep) femoral vein, femoral vein, popliteal vein, peroneal v ein, posterior tibial veins, gastrocnemius vein, and greater saphenous vein are patent. IMPRESSION: Patent bilateral lower extremity veins. No evidence of deep venous thrombosis. Reviewed, dictated and finalized at location K. OR MASTER
--- NOTE | 2023-10-09 14:02 | ECG_ITS ---
Measurements Intervals [place] Rate: 86 P: 59 [place]: 193 QRS: 48 QRSD: 87 T: 65 QT: 380 QTc: 457 Interpretive Statements SINUS RHYTHM NORMAL ECG COMPARED TO ECG 12/08/2021 13:07:24 NO SIGNIFICANT CHANGES Electronically Signed On 10-09-2023 15:30:28 BUFFING MACHINE OPERATOR by Rasta Knox D.O.
--- NOTE | 2023-10-09 14:08 | PC.NURSE ---
BS 327
[2023-10-09] MEDS: SODIUM CHLORIDE 0.9% IV 1,000 ML 999 ML IV CONT ×2 (14:14→16:07)
[2023-10-09 14:16] LABS: Glucose Point of Care 327 mg/dl (65-105)
[2023-10-09] MEDS: SODIUM CHLORIDE 0.9% IV 2,400 ML/1,000 ML BAG 999 ML IV CONT ×2 (14:27→15:22)
--- NOTE | 2023-10-09 14:32 | ED.AMS ---
HPI - Altered Mental Status General Chief Complaint: Altered Mental Status Stated Complaint: possible aspiration Time Seen by Provider: 10/09/23 13:57 History of Present Illness HPI narrative: Patient is a 83-year-old male who presents ER with concerns for possible aspiration. He is vomiting at his custodial and started making gurgling and choking noises afterwards. He is a DNR. Per EMS he has had decreased responsiveness and pinpoint pupils they gave him some Narcan which did had minimal change. Upon arrival here patient is quite hypoxic. He tries answer questions without any noxious stimuli. He has no complaints. He is covered in his own emesis. Related Data Home Medications Medication Instructions Recorded Confirmed aspirin 81 mg chewable tablet 81 mg PO DAILY 07/02/19 04/02/20 atenolol 25 mg tablet 50 mg PO BID 07/02/19 04/02/20 atorvastatin 20 mg tablet 20 mg PO HS 04/02/20 04/02/20 insulin aspart U-100 100 unit/mL 7 unit subcut TID 04/02/20 04/02/20 subcutaneous solution (Novolog U-100 Insulin aspart) insulin glargine 100 unit/mL 20 unit subcut QPM 04/02/20 04/02/20 subcutaneous solution (Lantus U-100 Insulin) pantoprazole 40 mg tablet,delayed 40 mg PO QAM 04/02/20 04/02/20 release Allergies Allergy/AdvReac Type Severity Reaction Status Date / Time grass pollen Allergy Mild Nasal Verified 04/02/20 22:06 Discharge Review of Systems Review of Systems: ROS unobtainable: Yes unobtainable due to mental status PMFSH Past Medical History Medical History Diabetes mellitus, type II Treated as type 1 Diabetic peripheral neuropathy Essential hypertension GERD (gastroesophageal reflux disease) Hypercholesterolemia Surgical History Surgical History H/O bilateral cataract extraction Hx of tonsillectomy Family History Family History Father Lymphoma Mother Diabetes mellitus Social History Social History Smoking status: Never smoker Alcohol intake: current Alcohol use details: He drinks an occasional glass a wine with dinner about once a month. Substance use: never Living arrangements: with family Additional living arrangements comments: he lives with his of 40 years in [facility]. He has 2 adult children who are healthy. 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 Spiritual care concerns: No Exam Narrative: GENERAL: chronically ill-appearing, well-nourished, and in no acute distress. HEAD: Normocephalic, atraumatic. EYES: PERRL and EOMI. ENT: Mucous membranes moist. NECK: Supple. CHEST: Bibasal rales. No respiratory distress. HEART: Regular rate and rhythm. Normal peripheral pulses. ABDOMEN: Soft, nontender, nondistended. EXTREMITIES: Normal range of motion. No edema. SKIN: Warm, dry, no rash. NEURO: No focal deficits. Alert and oriented x1. Course Course Emergency Course: 1420: patient's O2 saturation was 51% upon entering the room. Placed on non-rebreather. Will obtain ABG an x-ray. Concern for sepsis given low blood pressures as well. Will give 30 milliliter/kilogram bolus. 1605: Hospitalist contacted and reviewed the case. That accepted the patient to the IMU. I have discussed patient's condition with his is in the room. Patient was very will blood pressures and requiring higher amounts of oxygen. Patient is a DNR, they would not want any intubation, they would not want a central line placed should his blood pressures stop responding to IVF. Vital Signs Vital signs: Vital Signs Temperature 97.3 F L 10/09/23 13:57 Pulse Rate 97
[2023-10-09 14:42] LABS: Alveolar/Arterial O2 Gradient 460.8 mmHg; Base Excess ABG 0.2 mEq/l (+/-2.0); Carboxyhemoglobin 0.4 % THb (0-2.0); Fractional Inspired Oxygen 100 %; HCO3 ABG 26.2 mEq/l (22.0-26.0); Methemoglobin ABG 0.3 %THb (0-1.5); Oxygen Content ABG 15.9 %vol (16.0-22.0); Oxygen Saturation ABG 99.3 % (95.0-100.0); PCO2 ABG 47.9 mmHg (35.0-45.0); PO2 ABG 204.3 mmHg (80.0-100.0); PO2 FiO2 Ratio Arterial Blood 2.04 %; Reduced Hemoglobin 1.3 %THb (0-5.0); Total Hemoglobin 11.2 g/dL (12.0-18.0); pH ABG 7.355 (7.350-7.450)
[2023-10-09 14:44] LABS: Device NON-REBREATHER MASK; Modified Allen's Test Pass; Site Drawn LEFT RADIAL
[2023-10-09 14:58] LABS: Appearance Urine Clear (Clear); Bacteria Urine None Seen /hpf; Bilirubin Urine Negative (Negative); Blood Urine 1+ (Negative); Color Urine Yellow (Yellow); Glucose Urine UA 3+ mg/dL (Negative); Ketones Urine 2+ mg/dL (Negative); Leukocyte Esterase Ur Negative LEU/UL (Negative); Need Manual Microscopic Reviewed; Nitrate Urine Negative (Negative); Non Pathogenic Casts 0-2; Protein Urine Negative (Negative); Specific Grav Ur 1.026 (1.001-1.035); Squamous Epithelial Cell Urine None seen /hpf (Few); WBC Urine 0-5 /hpf
[2023-10-09 14:59] LABS: INR 0.9; Prothrombin Time 12.8 Seconds (11.1-14.7)
[2023-10-09] MEDS: PIPERACILLN/TAZ 3.375GM/NS50ML 3.375 GM/50 ML BAG IVPB ×2 (14:59→21:30)
[2023-10-09 15:00] LABS: Partial Thromboplastin Time 25.7 SECONDS (22.3-36.8)
[2023-10-09 15:03] LABS: Alanine Aminotransferase 15 U/L (6-50); Albumin Level 3.9 g/dL (3.5-5.1); Alkaline Phosphatase 80 U/L (38-126); Anion Gap 8 mmol/L (8-16); Aspartate Amino Transferase 33 U/L (17-59); Bilirubin,Total 0.7 mg/dL (0.2-1.3); Blood Urea Nitrogen 25 mg/dL (9-20); Calcium 9.4 mg/dL (8.4-10.2); Carbon Dioxide 29 mmol/L (22-30); Chloride 97 mmol/L (98-107); Estimated CRCL calculation 44 ml/min; Estimated Glomerular Filt Rate 58; Glucose 303 mg/dL (65-110); Potassium 4.5 mmol/L (3.4-5.0); Sodium 134 mmol/L (137-145)
[2023-10-09 15:05] LABS: Basophils Percent Auto 0.4 % (0.2-1.2); Eosinophils Absolute Auto 0.1 K/mm3 (0-0.3); Eosinophils Percent Auto 0.9 % (0-4.4); Hematocrit 41.1 % (42.0-52.0); Hemoglobin 12.6 g/dL (14.0-18.0); Immature Granulocyte Absolute 0.06 K/mm3 (0.00-0.031); Immature Granulocyte Percent A 0.7 % (0-0.5); Lymphocytes Absolute Auto 1.25 K/mm3 (0.9-3.2); Lymphocytes Percent Auto 13.7 % (18.3-44.2); Mean Corpuscular HGB Conc 30.7 g/dl (32-36); Mean Corpuscular Hemoglobin 27.7 pg (26-34); Mean Corpuscular Volume 90.3 fl (80-100); Mean Platelet Volume 11.3 fl (7.4-10.4); Monocytes Absolute Auto 0.4 K/mm3 (0.1-0.6); Monocytes Percent Auto 4.5 % (2.6-8.5); Neutrophils Absolute Auto 7.3 K/mm3 (1.3-6.7); Neutrophils Percent Auto 79.8 % (45.5-73.1); Platelet Count Result 394 k/mm3 (150-375); Red Blood Count 4.55 M/mm3 (4.6-6.20); Red Cell Distribution Width 12.9 % (11.5-14.5); White Blood Count 9.1 K/mm3 (4.5-10.0)
[2023-10-09 15:11] LABS: Add Urine Microscopic? YES; Lactic Acid Reflex 3.7 mmol/L (0.7-2.0)
[2023-10-09] MEDS: VANCOMYCIN 2,000 MG/NS 500 ML 2,000 MG/500 ML BAG 250 MG IVPB (16:18)
[2023-10-09] MEDS: IPRATROPIUM 0.5 MG/ALBUTEROL SULFATE 2.5 MG AMPUL.NEB 3 ML INHALATION ×2 (16:20→20:07)
[2023-10-09] MEDS: SODIUM CHLORIDE 0.9% IV 1,000 ML 125 ML IV CONT (16:49)
--- NOTE | 2023-10-09 17:07 | PC.NURSE ---
Called [facility] at this time and gave nurse to nurse report to Елена regarding pt status/POC/admit.
[2023-10-09] MEDS: MORPHINE SULFATE (*CRX) 2 MG/ML INJ IV PUSH (17:09)
--- NOTE | 2023-10-09 17:23 | ADMGEN ---
This patient, Oswaldo Espinosa, was admitted to IMU Room 205-02. Patient/family oriented to hospital policies and general routines including ID bracelet, bed and alarms, visiting hours, pain management, procedures, bathroom and other care routines, personal items, smoking policy, room service/diet, and visiting hours. Information on how to activate the Rapid Response Team has been discussed. Patient/Family are encouraged to report perceived risks to care and to ask questions if they do not understand what they are told or what they should do.
[2023-10-09 17:58] LABS: Reflex Lactic Acid Yes or No Add Lactic
[2023-10-09 18:43] LABS: Lactic Acid 1.4 mmol/L (0.7-2.0)
--- NOTE | 2023-10-09 20:50 | PM.IMHP ---
H&P: HPI History of Present Illness Date/Time: 10/09/23 20:50 Chief Complaint: Hypoxia, N/V, Hypotension, Somnolence Narrative: 83 y/o M presents here with nausea, vomiting, hypoxia, hypotension, somnolence with PMH of DM2 (treated as type 1), diabetic peripheral neuropathy, HTN, GERD, and HLD. Patient presented here via EMS from at [facility] for altered mental status. Per staff report to EMS, patient vomited and shortly after developed adventitious sounds (i.e. gurgling and choking noises). Upon EMS arrival he was found to be hypoxic, hypotensive, and with reduced responsiveness. Pinpoint pupils on their exam, EMS administered Narcan which did not resolve alteration. Upon arrival to the ED, patient's O2 saturation was 51% and initial blood pressure was 64/36. Patient was placed on a non-rebreather and quickly titrated to nasal cannula after improvement in oxygenation. Patient does not require supplemental O2 at baseline. Current concern for aspiration given nausea vomiting episode. Patient is currently at rehab post hip surgery. ED provider discussed patient's condition with , he is currently DNR, and would not want a central line or intubation. Patient does not remember emesis episode. Does not recall any precipitating symptoms and no complaints or symptoms noted this morning. Patient's only complaint at present is thirst. No numbness, tingling, changes in sensation or focal weakness identified by patient. No dysarthria. New difficulty swallowing. +Fatigue. Denies abdominal pain, shortness of breath, chest pain, or palpitations. No recent N/V/D other than episode today. No current nausea. Initial VS at presentation: 97.3 F, HR 97, RR 24, 64/36, 51% on RA. ED workup showed no leukocytosis, mild anemia, increased platelet count, sodium 134, creatinine 1.2, glucose 303, lactic acid 3.7, UA not suspicious for UTI. CXR showed mild interstitial edema, 1.4 cm ovoid opacity projecting over the right lung. Review of Systems Review of Systems: All systems reviewed & are unremarkable except as noted in HPI and below PMFSH Past Medical History Medical History (Updated 10/09/23 @ 23:20 by Anahi Charlton, LAUREEN) Apnea Diabetes mellitus, type II Treated as type 1 Diabetic peripheral neuropathy Essential hypertension Not currently on medications GERD (gastroesophageal reflux disease) Hypercholesteremia Surgical History Surgical History H/O bilateral cataract extraction Hx of tonsillectomy Family History Family History Father Lymphoma Mother Diabetes mellitus Social History Social History Smoking status: Former smoker Alcohol intake: never Alcohol use details: He drinks an occasional glass a wine with dinner about once a month. Substance use: never Substance use type: does not use Living arrangements: with family Additional living arrangements comments: he lives with his of 40 years in [facility]. He has 2 adult children who are healthy. 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 Spiritual care concerns: No Meds Home Medications and Allergies Home Medications Medication Instructions Recorded Confirmed Type aspirin 81 mg chewable tablet 325 mg PO DAILY 07/02/19 10/09/23 History insulin glargine 100 unit/mL 30 unit subcut HS 04/02/20 10/09/23 History subcutaneous solution (Lantus U-100 Insulin) acetaminophen 650 mg 650 mg PO Q4H PRN pain 10/09/23 10/09/23 History tablet,extended release alprazolam 1 mg tablet 1 mg PO Q6H PRN Anxiety 10/09/23 10/09/23 History celecoxib 200 mg capsule (Celebrex) 200 mg PO DAILY 10/09/23 10/09/23
[2023-10-09] MEDS: PANTOPRAZOLE SODIUM IV 40 MG VIAL IV PUSH (21:35)
[2023-10-09 21:36] LABS: MRSA (PCR) DETECTED (NOT DETECTE)
[2023-10-09] MEDS: SENNOSIDES 8.6 MG TABLET PO (21:37)
[2023-10-09 21:48] LABS: Glucose Point of Care 265 mg/dl (65-105)
[2023-10-09 23:53] LABS: Glucose Point of Care 387 mg/dl (65-105)
[2023-10-10] VITALS (27 sets, daily range): BP systolic 102–112; BP diastolic 50–58; PULSE 87–110; RESP 16–18; TEMP 36.3–36.9; O2SAT 92–100; BMI 26.6
[2023-10-10] MEDS: INSULIN ASPART (*BKC) 100 UNITS/ML SUB-Q ×2 (00:19→12:22)
[2023-10-10] MEDS: IPRATROPIUM 0.5 MG/ALBUTEROL SULFATE 2.5 MG AMPUL.NEB 3 ML INHALATION ×4 (01:16→20:20)
[2023-10-10] MEDS: PIPERACILLN/TAZ 3.375GM/NS50ML 3.375 GM/50 ML BAG IVPB ×4 (02:41→21:32)
--- NOTE | 2023-10-10 03:34 | PC.NURSE ---
This patient, Oswaldo Espinosa, was transferred to room 209 due to a positive MRSA swab on 10/09/23 at 2148. Personal belongings sent with patient. Appropriate documentation sent with patient.
[2023-10-10 04:39] LABS: Basophils Percent Auto 0.2 % (0.2-1.2); Hematocrit 35.2 % (42.0-52.0); Hemoglobin 10.4 g/dL (14.0-18.0); Immature Granulocyte Absolute 0.04 K/mm3 (0.00-0.031); Immature Granulocyte Percent A 0.4 % (0-0.5); Lymphocytes Absolute Auto 0.37 K/mm3 (0.9-3.2); Lymphocytes Percent Auto 3.3 % (18.3-44.2); Mean Corpuscular HGB Conc 29.5 g/dl (32-36); Mean Corpuscular Hemoglobin 27.7 pg (26-34); Mean Corpuscular Volume 93.9 fl (80-100); Mean Platelet Volume 11.3 fl (7.4-10.4); Monocytes Absolute Auto 0.6 K/mm3 (0.1-0.6); Monocytes Percent Auto 5.7 % (2.6-8.5); Neutrophils Percent Auto 90.4 % (45.5-73.1); Platelet Count Result 306 k/mm3 (150-375); Red Blood Count 3.75 M/mm3 (4.6-6.20); White Blood Count 11.1 K/mm3 (4.5-10.0)
[2023-10-10 04:52] LABS: Alanine Aminotransferase 14 U/L (6-50); Albumin Level 3.2 g/dL (3.5-5.1); Alkaline Phosphatase 69 U/L (38-126); Anion Gap 9 mmol/L (8-16); Aspartate Amino Transferase 20 U/L (17-59); Bilirubin,Total 0.8 mg/dL (0.2-1.3); Blood Urea Nitrogen 24 mg/dL (9-20); Calcium 8.5 mg/dL (8.4-10.2); Carbon Dioxide 23 mmol/L (22-30); Chloride 101 mmol/L (98-107); Estimated CRCL calculation 43 ml/min; Estimated Glomerular Filt Rate 58; Glucose 404 mg/dL (65-110); Magnesium 1.8 mg/dL (1.6-2.3); Phosphorus 4.3 mg/dL (2.5-4.5); Potassium 4.3 mmol/L (3.4-5.0); Sodium 133 mmol/L (137-145)
[2023-10-10 05:14] LABS: Hemoglobin A1C 10.9 % (<5.7)
[2023-10-10] MEDS: SODIUM CHLORIDE 0.9% IV 1,000 ML 125 ML IV CONT ×2 (05:38→14:37)
[2023-10-10 05:58] LABS: Alveolar/Arterial O2 Gradient 93.9 mmHg; Base Excess ABG -1.9 mEq/l (+/-2.0); Fractional Inspired Oxygen 32 %; HCO3 ABG 22.3 mEq/l (22.0-26.0); Oxygen Content ABG 14.3 %vol (16.0-22.0); Oxygen Saturation ABG 97.2 % (95.0-100.0); Oxyhemoglobin 96.3 % THb (90.0-100.0); PO2 ABG 92.1 mmHg (80.0-100.0); PO2 FiO2 Ratio Arterial Blood 2.88 %; Total Hemoglobin 10.5 g/dL (12.0-18.0)
[2023-10-10 05:59] LABS: Device NASAL CANNULA; Modified Allen's Test Pass; Site Drawn RIGHT RADIAL
[2023-10-10 06:58] LABS: Glucose Point of Care 434 mg/dl (65-105)
[2023-10-10] MEDS: INSULIN ASPART (*BKC) 100 UNITS/ML 12 UNITS SUB-Q (07:55)
[2023-10-10 08:07] LABS: Glucose Point of Care 405 mg/dl (65-105)
[2023-10-10 08:32] LABS: Alanine Aminotransferase 14 U/L (6-50); Alkaline Phosphatase 63 U/L (38-126); Anion Gap 8 mmol/L (8-16); Aspartate Amino Transferase 25 U/L (17-59); Bilirubin,Total 0.7 mg/dL (0.2-1.3); Blood Urea Nitrogen 24 mg/dL (9-20); Calcium 8.7 mg/dL (8.4-10.2); Carbon Dioxide 24 mmol/L (22-30); Chloride 105 mmol/L (98-107); Estimated CRCL calculation 47 ml/min; Estimated Glomerular Filt Rate > 60; Glucose 449 mg/dL (65-110); Potassium 5.2 mmol/L (3.4-5.0); Sodium 137 mmol/L (137-145)
[2023-10-10 08:52] LABS: Glucose Point of Care 413 mg/dl (65-105)
--- NOTE | 2023-10-10 10:06 | PCSTNOTE ---
Please refer to the Bedside Swallow Evaluation in the EMR. Please note, silent aspiration cannot be ruled out at bedside.
--- NOTE | 2023-10-10 10:27 | PM.IMPN ---
Progress Note: A&P Assessment and Plan (1) Dysphagia: Code(s): R13.10 - Dysphagia, unspecified Status: Acute Assessment and Plan: Speech therapy evaluation (2) Diabetes mellitus, type II: Qualifiers: Diabetes mellitus halfway insulin use: with supervisor intermediates use Code(s): E11.9 - Type 2 diabetes mellitus without complications Status: Acute Assessment and Plan: Continue insulin sliding scale (3) Aspiration pneumonia: Code(s): J69.0 - Pneumonitis due to inhalation of food and vomit Status: Acute Assessment and Plan: Associated with acute hypoxemic respiratory failure septic shock as above continue nebulizer treatment IV Zosyn DC IV vancomycin (4) Hypoxia: Code(s): R09.02 - Hypoxemia Status: Acute Assessment and Plan: Acute hypoxemic respiratory failure secondary to aspiration pneumonia wean off oxygen management as above (5) Severe sepsis: Code(s): A41.9 - Sepsis, unspecified organism; R65.20 - Severe sepsis without septic shock Status: Acute Assessment and Plan: Secondary to aspiration pneumonia continue IV antibiotics (6) Essential (primary) hypertension: Code(s): I10 - Essential (primary) hypertension Status: Acute Assessment and Plan: Continue to monitor Subjective Date/time seen: 10/10/23 10:27 Interval history: 83 y/o M presents here with nausea, vomiting, hypoxia, hypotension, somnolence with PMH of DM2 (treated as type 1), diabetic peripheral neuropathy, HTN, GERD, and HLD. Patient presented here via EMS from at [facility] for altered mental status.? Per staff report to EMS, patient vomited and shortly after developed adventitious sounds (i.e. gurgling and choking noises).? Upon EMS arrival he was found to be hypoxic, hypotensive, and with reduced responsiveness.? Pinpoint pupils on their exam, EMS administered Narcan which did not resolve alteration.? Upon arrival to the ED, patient's O2 saturation was 51% and initial blood pressure was 64/36.? Patient was placed on a non-rebreather and quickly titrated to nasal cannula after improvement in oxygenation.? Patient does not require supplemental O2 at baseline.? Current concern for aspiration given nausea vomiting episode.? Patient is currently at rehab post hip surgery.? ED provider discussed patient's condition with , he is currently DNR, and would not want a central line or intubation. Patient does not remember emesis episode. Does not recall any precipitating symptoms and no complaints or symptoms noted this morning. Patient's only complaint at present is thirst. No numbness, tingling, changes in sensation or focal weakness identified by patient. No dysarthria. New difficulty swallowing. +Fatigue. Denies abdominal pain, shortness of breath, chest pain, or palpitations. No recent N/V/D other than episode today. No current nausea. Initial VS at presentation:? 97.3 F, HR 97, RR 24, 64/36, 51% on RA. ED workup showed no leukocytosis, mild anemia, increased platelet count, sodium 134, creatinine 1.2, glucose 303, lactic acid 3.7, UA not suspicious for UTI.? CXR showed mild interstitial edema, 1.4 cm ovoid opacity projecting over the right lung. Exam Narrative: Alert Chest scattered crackles Abdomen nontender nondistended CVS S1 + S2 Lower extremity edema Objective Data Vital Signs Vital Signs: Vital Signs - 24 hr 10/09/23 13:57 10/09/23 14:05 10/09/23 14:09 Temperature 97.3 F L Pulse Rate 97 87 Respiratory Rate 24 H Blood Pressure 64/36 L Pulse Oximetry 51 L 51 L Oxygen Delivery Room Air Room Air Oxygen Flow Rate Fraction of Inspired Oxygen 10/09/23 14:10 10/09/23 14:17 10/09/23 14:52 Temperature 95.8 F L Pulse Rate 88 Respiratory Rate 16 Blood Pressure 72/51 L 72/51 L Pulse Oximetry 99 99 Oxygen Delivery Nasal Cannula Oxygen Flow Rate 6 Fraction of Inspired Oxygen 10/09/23 14
[2023-10-10] MEDS: PANTOPRAZOLE SODIUM IV 40 MG VIAL IV PUSH ×2 (11:13→21:32)
[2023-10-10] MEDS: CYANOCOBALAMIN 500 MCG TABLET PO (11:13)
[2023-10-10] MEDS: CELECOXIB 200 MG CAPSULE PO (11:13)
[2023-10-10 11:59] LABS: Glucose Point of Care 375 mg/dl (65-105)
[2023-10-10] MEDS: GABAPENTIN 300 MG CAPSULE PO ×2 (12:23→17:46)
[2023-10-10] MEDS: MUPIROCIN 2% OINT 22 GM TUBE 1 APPLIC EACH NARE ×2 (12:23→21:32)
[2023-10-10] MEDS: ASPIRIN 81 MG CHEWABLE TABLET 324 MG PO (12:24)
[2023-10-10 17:12] LABS: Glucose Point of Care 415 mg/dl (65-105)
[2023-10-10] MEDS: VANCOMYCIN 1,250 MG/NS 250 ML 1,250 MG/250 ML BAG 166.67 MG IVPB (17:44)
[2023-10-10] MEDS: INSULIN ASPART (*BKC) 100 UNITS/ML 17 UNITS SUB-Q (18:38)
[2023-10-10 18:49] LABS: Alanine Aminotransferase 14 U/L (6-50); Albumin Level 3.1 g/dL (3.5-5.1); Alkaline Phosphatase 66 U/L (38-126); Anion Gap 5 mmol/L (8-16); Aspartate Amino Transferase 20 U/L (17-59); Bilirubin,Total 0.7 mg/dL (0.2-1.3); Blood Urea Nitrogen 22 mg/dL (9-20); Calcium 8.7 mg/dL (8.4-10.2); Carbon Dioxide 26 mmol/L (22-30); Chloride 102 mmol/L (98-107); Estimated CRCL calculation 47 ml/min; Estimated Glomerular Filt Rate > 60; Glucose 395 mg/dL (65-110); Potassium 4.6 mmol/L (3.4-5.0); Sodium 133 mmol/L (137-145)
[2023-10-10] MEDS: INSULIN GLARGINE (*BKC) 100 UNITS/ML 30 UNITS SUB-Q (21:32)
[2023-10-10] MEDS: SENNOSIDES 8.6 MG TABLET PO (21:32)
[2023-10-10 21:41] LABS: Glucose Point of Care 244 mg/dl (65-105)
[2023-10-11] VITALS (27 sets, daily range): BP systolic 94–146; BP diastolic 52–77; PULSE 92–111; RESP 18; TEMP 36.3–37; O2SAT 87–100
[2023-10-11] MEDS: IPRATROPIUM 0.5 MG/ALBUTEROL SULFATE 2.5 MG AMPUL.NEB 3 ML INHALATION ×4 (02:29→20:28)
[2023-10-11] MEDS: PIPERACILLN/TAZ 3.375GM/NS50ML 3.375 GM/50 ML BAG IVPB ×4 (05:20→21:22)
[2023-10-11 05:53] LABS: Estimated CRCL calculation 56 ml/min; Estimated Glomerular Filt Rate > 60
[2023-10-11 08:05] LABS: Glucose Point of Care 261 mg/dl (65-105)
[2023-10-11] MEDS: INSULIN ASPART (*BKC) 100 UNITS/ML 8 UNITS SUB-Q (08:12)
[2023-10-11] MEDS: INSULIN ASPART (*BKC) 100 UNITS/ML SUB-Q ×2 (08:13→12:24)
[2023-10-11] MEDS: SODIUM CHLORIDE 0.9% IV 1,000 ML 125 ML IV CONT ×2 (08:15)
[2023-10-11] MEDS: ASPIRIN 81 MG CHEWABLE TABLET 324 MG PO (08:17)
[2023-10-11] MEDS: CELECOXIB 200 MG CAPSULE PO (08:18)
[2023-10-11] MEDS: CYANOCOBALAMIN 500 MCG TABLET PO (08:18)
[2023-10-11] MEDS: GABAPENTIN 300 MG CAPSULE PO ×2 (08:18→17:16)
[2023-10-11] MEDS: CITALOPRAM HYDROBROMIDE 20 MG TABLET PO (08:18)
[2023-10-11] MEDS: PANTOPRAZOLE SODIUM IV 40 MG VIAL IV PUSH ×2 (08:19→21:26)
[2023-10-11] MEDS: MUPIROCIN 2% OINT 22 GM TUBE 1 APPLIC EACH NARE ×2 (08:19→21:26)
--- NOTE | 2023-10-11 10:32 | PM.IMPN ---
Progress Note: A&P Assessment and Plan (1) Dysphagia: Code(s): R13.10 - Dysphagia, unspecified Status: Acute Assessment and Plan: Speech therapy was consulted will follow speech therapy recommendation (2) Diabetes mellitus, type II: Qualifiers: Diabetes mellitus exterminator helper termite insulin use: with chcf use Code(s): E11.9 - Type 2 diabetes mellitus without complications Status: Acute Assessment and Plan: Better controlled continue insulin sliding scale (3) Aspiration pneumonia: Code(s): J69.0 - Pneumonitis due to inhalation of food and vomit Status: Acute Assessment and Plan: Associated with acute hypoxemic respiratory failure septic shock as above continue nebulizer treatment IV Zosyn DC IV vancomycin Improved repeat chest x-ray as outpatient in 1 week (4) Hypoxia: Code(s): R09.02 - Hypoxemia Status: Acute Assessment and Plan: Acute hypoxemic respiratory failure secondary to aspiration pneumonia wean off oxygen management as above (5) Severe sepsis: Code(s): A41.9 - Sepsis, unspecified organism; R65.20 - Severe sepsis without septic shock Status: Acute Assessment and Plan: Secondary to aspiration pneumonia continue IV antibiotics follow CBC CMP patient still have tachycardia clinically improved (6) Essential (primary) hypertension: Code(s): I10 - Essential (primary) hypertension Status: Acute Assessment and Plan: Continue to monitor (7) Lower extremity edema: Code(s): R60.0 - Localized edema Status: Acute Assessment and Plan: Will give 1 dose of IV Lasix will get Doppler of lower extremity Plan Anticipate discharge to facility in 1-2 days once shortness of breath improved lower extremity swelling improved and if Doppler negative for DVT Subjective Date/time seen: 10/11/23 10:32 Interval history: 83 y/o M presents here with nausea, vomiting, hypoxia, hypotension, somnolence with PMH of DM2 (treated as type 1), diabetic peripheral neuropathy, HTN, GERD, and HLD. Patient presented here via EMS from at [facility] for altered mental status.? Per staff report to EMS, patient vomited and shortly after developed adventitious sounds (i.e. gurgling and choking noises).? Upon EMS arrival he was found to be hypoxic, hypotensive, and with reduced responsiveness.? Pinpoint pupils on their exam, EMS administered Narcan which did not resolve alteration.? Upon arrival to the ED, patient's O2 saturation was 51% and initial blood pressure was 64/36.? Patient was placed on a non-rebreather and quickly titrated to nasal cannula after improvement in oxygenation.? Patient does not require supplemental O2 at baseline.? Current concern for aspiration given nausea vomiting episode.? Patient is currently at rehab post hip surgery.? ED provider discussed patient's condition with , he is currently DNR, and would not want a central line or intubation. Patient does not remember emesis episode. Does not recall any precipitating symptoms and no complaints or symptoms noted this morning. Patient's only complaint at present is thirst. No numbness, tingling, changes in sensation or focal weakness identified by patient. No dysarthria. New difficulty swallowing. +Fatigue. Denies abdominal pain, shortness of breath, chest pain, or palpitations. No recent N/V/D other than episode today. No current nausea. Initial VS at presentation:? 97.3 F, HR 97, RR 24, 64/36, 51% on RA. ED workup showed no leukocytosis, mild anemia, increased platelet count, sodium 134, creatinine 1.2, glucose 303, lactic acid 3.7, UA not suspicious for UTI.? CXR showed mild interstitial edema, 1.4 cm ovoid opacity projecting over the right lung. Patient feels better today Shortness of breath has not Still has lower extremity swelling Exam Narrative: Alert Chest scattered crackles Abdomen nontender nondistended CVS S1 + S2 Lower extr
[2023-10-11 10:50] LABS: Basophils Percent Auto 0.3 % (0.2-1.2); Eosinophils Absolute Auto 0.2 K/mm3 (0-0.3); Eosinophils Percent Auto 1.3 % (0-4.4); Hematocrit 29.6 % (42.0-52.0); Hemoglobin 8.7 g/dL (14.0-18.0); Immature Granulocyte Percent A 0.8 % (0-0.5); Lymphocytes Absolute Auto 0.85 K/mm3 (0.9-3.2); Lymphocytes Percent Auto 6.7 % (18.3-44.2); Mean Corpuscular HGB Conc 29.4 g/dl (32-36); Mean Corpuscular Hemoglobin 27.4 pg (26-34); Mean Corpuscular Volume 93.4 fl (80-100); Mean Platelet Volume 11.5 fl (7.4-10.4); Monocytes Absolute Auto 0.7 K/mm3 (0.1-0.6); Monocytes Percent Auto 5.8 % (2.6-8.5); Neutrophils Absolute Auto 10.7 K/mm3 (1.3-6.7); Neutrophils Percent Auto 85.1 % (45.5-73.1); Platelet Count Result 276 k/mm3 (150-375); Red Blood Count 3.17 M/mm3 (4.6-6.20); Red Cell Distribution Width 13.2 % (11.5-14.5); White Blood Count 12.6 K/mm3 (4.5-10.0)
[2023-10-11 11:01] LABS: Alanine Aminotransferase 11 U/L (6-50); Albumin Level 2.8 g/dL (3.5-5.1); Alkaline Phosphatase 59 U/L (38-126); Anion Gap 5 mmol/L (8-16); Aspartate Amino Transferase 25 U/L (17-59); Bilirubin,Total 0.4 mg/dL (0.2-1.3); Blood Urea Nitrogen 21 mg/dL (9-20); Calcium 8.6 mg/dL (8.4-10.2); Carbon Dioxide 26 mmol/L (22-30); Chloride 105 mmol/L (98-107); Estimated CRCL calculation 56 ml/min; Estimated Glomerular Filt Rate > 60; Glucose 244 mg/dL (65-110); Potassium 3.4 mmol/L (3.4-5.0); Sodium 136 mmol/L (137-145)
[2023-10-11 12:02] LABS: Glucose Point of Care 270 mg/dl (65-105)
[2023-10-11] MEDS: INSULIN ASPART (*BKC) 100 UNITS/ML 10 UNITS SUB-Q ×2 (12:25→17:17)
[2023-10-11 15:48] LABS: Vancomycin Trough 7.9 ug/mL (10.0-20.0)
[2023-10-11 16:24] LABS: Glucose Point of Care 181 mg/dl (65-105)
[2023-10-11] MEDS: VANCOMYCIN 1,250 MG/NS 250 ML 1,250 MG/250 ML BAG 166.67 MG IVPB (17:14)
[2023-10-11] MEDS: FUROSEMIDE INJ 40 MG/4 ML VIAL 20 MG IV PUSH (17:17)
[2023-10-11 20:14] LABS: Glucose Point of Care 170 mg/dl (65-105)
[2023-10-11] MEDS: INSULIN GLARGINE (*BKC) 100 UNITS/ML 32 UNITS SUB-Q (21:25)
[2023-10-11] MEDS: SENNOSIDES 8.6 MG TABLET PO (21:26)
[2023-10-12] VITALS (25 sets, daily range): BP systolic 110–166; BP diastolic 62–96; PULSE 93–123; RESP 18; TEMP 36.4–37.1; O2SAT 94–100
[2023-10-12] MEDS: IPRATROPIUM 0.5 MG/ALBUTEROL SULFATE 2.5 MG AMPUL.NEB 3 ML INHALATION ×4 (02:52→20:15)
[2023-10-12] MEDS: PIPERACILLN/TAZ 3.375GM/NS50ML 3.375 GM/50 ML BAG IVPB ×3 (04:29→15:30)
[2023-10-12] MEDS: VANCOMYCIN 1,250 MG/NS 250 ML 1,250 MG/250 ML BAG 166.67 MG IVPB (04:29)
[2023-10-12 04:58] LABS: Basophils Percent Auto 0.3 % (0.2-1.2); Eosinophils Absolute Auto 0.5 K/mm3 (0-0.3); Eosinophils Percent Auto 4.7 % (0-4.4); Hematocrit 32.1 % (42.0-52.0); Hemoglobin 9.9 g/dL (14.0-18.0); Immature Granulocyte Absolute 0.08 K/mm3 (0.00-0.031); Immature Granulocyte Percent A 0.8 % (0-0.5); Lymphocytes Absolute Auto 0.84 K/mm3 (0.9-3.2); Mean Corpuscular HGB Conc 30.8 g/dl (32-36); Mean Corpuscular Hemoglobin 27.9 pg (26-34); Mean Corpuscular Volume 90.4 fl (80-100); Monocytes Absolute Auto 0.5 K/mm3 (0.1-0.6); Monocytes Percent Auto 4.5 % (2.6-8.5); Neutrophils Absolute Auto 8.5 K/mm3 (1.3-6.7); Neutrophils Percent Auto 81.7 % (45.5-73.1); Platelet Count Result 276 k/mm3 (150-375); Red Blood Count 3.55 M/mm3 (4.6-6.20); White Blood Count 10.5 K/mm3 (4.5-10.0)
[2023-10-12 05:06] LABS: Alanine Aminotransferase 10 U/L (6-50); Albumin Level 3.3 g/dL (3.5-5.1); Alkaline Phosphatase 69 U/L (38-126); Anion Gap 4 mmol/L (8-16); Aspartate Amino Transferase 20 U/L (17-59); Bilirubin,Total 0.5 mg/dL (0.2-1.3); Blood Urea Nitrogen 16 mg/dL (9-20); Calcium 8.9 mg/dL (8.4-10.2); Carbon Dioxide 30 mmol/L (22-30); Chloride 101 mmol/L (98-107); Estimated CRCL calculation 51 ml/min; Estimated Glomerular Filt Rate > 60; Glucose 156 mg/dL (65-110); Potassium 3.2 mmol/L (3.4-5.0); Sodium 135 mmol/L (137-145)
[2023-10-12 08:24] LABS: Glucose Point of Care 173 mg/dl (65-105)
[2023-10-12] MEDS: CITALOPRAM HYDROBROMIDE 20 MG TABLET PO (09:16)
[2023-10-12] MEDS: ASPIRIN 81 MG CHEWABLE TABLET 324 MG PO (09:16)
[2023-10-12] MEDS: GABAPENTIN 300 MG CAPSULE PO ×2 (09:16→17:15)
[2023-10-12] MEDS: CYANOCOBALAMIN 500 MCG TABLET PO (09:16)
[2023-10-12] MEDS: CELECOXIB 200 MG CAPSULE PO (09:21)
[2023-10-12] MEDS: INSULIN ASPART (*BKC) 100 UNITS/ML 10 UNITS SUB-Q ×3 (09:21→17:15)
[2023-10-12] MEDS: PANTOPRAZOLE SODIUM IV 40 MG VIAL IV PUSH ×2 (09:24→21:33)
[2023-10-12] MEDS: FUROSEMIDE INJ 40 MG/4 ML VIAL 20 MG IV PUSH ×2 (09:27→17:15)
[2023-10-12] MEDS: MUPIROCIN 2% OINT 22 GM TUBE 1 APPLIC EACH NARE ×2 (09:27→21:30)
[2023-10-12 11:36] LABS: Glucose Point of Care 187 mg/dl (65-105)
[2023-10-12 16:13] LABS: Glucose Point of Care 193 mg/dl (65-105)
--- NOTE | 2023-10-12 16:18 | PM.IMPN ---
Progress Note: A&P Assessment and Plan (1) Dysphagia: Code(s): R13.10 - Dysphagia, unspecified Status: Acute Assessment and Plan: Speech therapy was consulted will follow speech therapy recommendation (2) Diabetes mellitus, type II: Qualifiers: Diabetes mellitus fci insulin use: with fci use Code(s): E11.9 - Type 2 diabetes mellitus without complications Status: Acute Assessment and Plan: Better controlled continue insulin sliding scale (3) Aspiration pneumonia: Code(s): J69.0 - Pneumonitis due to inhalation of food and vomit Status: Acute Assessment and Plan: Associated with acute hypoxemic respiratory failure septic shock as above continue nebulizer treatment IV Zosyn DC IV vancomycin Improved repeat chest x-ray as outpatient in 1 week 10/12/23: Augmentin today (4) Hypoxia: Code(s): R09.02 - Hypoxemia Status: Acute Assessment and Plan: Acute hypoxemic respiratory failure secondary to aspiration pneumonia wean off oxygen management as above (5) Severe sepsis: Code(s): A41.9 - Sepsis, unspecified organism; R65.20 - Severe sepsis without septic shock Status: Acute Assessment and Plan: Secondary to aspiration pneumonia continue IV antibiotics follow CBC CMP patient still have tachycardia clinically improved (6) Essential (primary) hypertension: Code(s): I10 - Essential (primary) hypertension Status: Acute Assessment and Plan: Continue to monitor (7) Lower extremity edema: Code(s): R60.0 - Localized edema Status: Acute Assessment and Plan: Will give 1 dose of IV Lasix will get Doppler of lower extremity Plan Anticipate discharge to facility in 1-2 days once shortness of breath improved lower extremity swelling improved and if Doppler negative for DVT Subjective Date/time seen: 10/12/23 16:18 Interval history: 83 y/o M presents here with nausea, vomiting, hypoxia, hypotension, somnolence with PMH of DM2 (treated as type 1), diabetic peripheral neuropathy, HTN, GERD, and HLD. Patient presented here via EMS from at [facility] for altered mental status.? Per staff report to EMS, patient vomited and shortly after developed adventitious sounds (i.e. gurgling and choking noises).? Upon EMS arrival he was found to be hypoxic, hypotensive, and with reduced responsiveness.? Pinpoint pupils on their exam, EMS administered Narcan which did not resolve alteration.? Upon arrival to the ED, patient's O2 saturation was 51% and initial blood pressure was 64/36.? Patient was placed on a non-rebreather and quickly titrated to nasal cannula after improvement in oxygenation.? Patient does not require supplemental O2 at baseline.? Current concern for aspiration given nausea vomiting episode.? Patient is currently at rehab post hip surgery.? ED provider discussed patient's condition with , he is currently DNR, and would not want a central line or intubation. Patient does not remember emesis episode. Does not recall any precipitating symptoms and no complaints or symptoms noted this morning. Patient's only complaint at present is thirst. No numbness, tingling, changes in sensation or focal weakness identified by patient. No dysarthria. New difficulty swallowing. +Fatigue. Denies abdominal pain, shortness of breath, chest pain, or palpitations. No recent N/V/D other than episode today. No current nausea. Initial VS at presentation:? 97.3 F, HR 97, RR 24, 64/36, 51% on RA. ED workup showed no leukocytosis, mild anemia, increased platelet count, sodium 134, creatinine 1.2, glucose 303, lactic acid 3.7, UA not suspicious for UTI.? CXR showed mild interstitial edema, 1.4 cm ovoid opacity projecting over the right lung. Patient feels better today Shortness of breath has not Still has lower extremity swelling 10/12/23: Seen and examined; not in painful distress Review of Systems Review of S
[2023-10-12] MEDS: AMOXICILLIN/CLAVULANATE K 875-125 MG TAB 1 TABLET PO (17:16)
[2023-10-12] MEDS: DOXYCYCLINE HYCLATE 100 MG TABLET PO ×2 (17:16→21:33)
[2023-10-12 20:43] LABS: Glucose Point of Care 225 mg/dl (65-105)
[2023-10-12] MEDS: POTASSIUM CHLORIDE 20 MEQ ER TABLET 40 MEQ PO (21:29)
[2023-10-12] MEDS: INSULIN GLARGINE (*BKC) 100 UNITS/ML 32 UNITS SUB-Q (21:30)
[2023-10-12] MEDS: SENNOSIDES 8.6 MG TABLET PO (21:33)
[2023-10-13] VITALS (22 sets, daily range): BP systolic 84–143; BP diastolic 47–80; PULSE 94–108; RESP 18–20; TEMP 36.3–37.1; O2SAT 93–97
--- NOTE | 2023-10-13 | ECHO_ITS ---
Patient Info Name: Oswaldo Espinosa Age: 83 years : 1940 Gender: Male Ht: 68 in Wt: 180 lbs BSA: 2.00 m2 HR: 102 bpm BP: 121 / 65 mmHg Heart Rhythm: Tachycardia Technical Quality: Good Exam Date: 10/13/2023 2:59 PM Exam Location: Echo Lab Patient Status: Inpatient Admit Date: 10/09/2023 Staff Ordering Physician: Wally Tavarez MD Production Lapping Machine Operator: Barrie James RDCS Attending Provider: Madhu Freeman MD Referring Physician: Corby MERCADO; Exam Type: CA echo doppler color flow Study Info Indications - ortheostatic hypotension Complete two-dimensional, color flow and Doppler transthoracic echocardiogram is performed. Summary 1. Complete two-dimensional, color flow and Doppler transthoracic echocardiogram is performed. 2. Left ventricular chamber dimension is normal. 3. Left ventricular systolic function is normal, estimated at 60-65%. 4. There is severe asymmetric septal increased left ventricular wall thickness. 5. The left ventricular diastolic function is grade I diastolic dysfunction. 6. The mid inferoseptal, and mid anteroseptal are hypokinetic. 7. Left atrial chamber dimension is mildly enlarged. 8. There is mild aortic valve regurgitation. 9. There is mild mitral valve regurgitation. 10. There is mild tricuspid valve regurgitation. 11. Moderate pulmonary hypertension, estimated pulmonary arterial systolic pressure is 51 mmHg. 12. There is small pericardial effusion. Left Ventricle Left ventricular chamber dimension is normal. Left ventricular systolic function is normal, estimated at 60-65%. There is severe asymmetric septal increased left ventricular wall thickness. The left ventricular diastolic function is grade I diastolic dysfunction. The mid inferoseptal, and mid anteroseptal are hypokinetic. All other charles appear normal. Right Ventricle Right ventricular chamber dimension is normal. Right ventricular systolic function is normal. Left Atria Left atrial chamber dimension is mildly enlarged. Right Atria Right atrial chamber dimension is normal. Atrial Septum Intact interatrial septum visualized by color flow imaging. Aortic Valve The aortic valve is trileaflet. There is mild aortic valve sclerosis. There is no aortic valve stenosis. There is mild aortic valve regurgitation. Pulmonic Valve The pulmonic valve is normal. There is no pulmonic valve stenosis. There is trace pulmonic regurgitation. Mitral Valve The mitral valve has normal leaflets. There is no mitral valve stenosis. There is mild mitral valve regurgitation. Tricuspid Valve The tricuspid valve leaflets are normal. There is no significant tricuspid valve stenosis. There is mild tricuspid valve regurgitation. Moderate pulmonary hypertension, estimated pulmonary arterial systolic pressure is 51 mmHg. Pericardium/Pleural The pericardium appears normal. There is small pericardial effusion. Inferior Vena Cava Normal inferior vena cava with >50% collapse upon inspiration consistent with normal right atrial pressure, 10 mmHg. Aorta The aortic root size at the sinus of Valsalva is normal. Left Ventricular Outflow Tract Name Value Normal LVOT 2D LVOT Diameter 1.9 cm LVOT Doppler L
[2023-10-13] MEDS: IPRATROPIUM 0.5 MG/ALBUTEROL SULFATE 2.5 MG AMPUL.NEB 3 ML INHALATION ×4 (01:50→20:29)
--- NOTE | 2023-10-13 03:21 | PC.NURSE ---
Patient catheter appeared to be leaking. RN deflated balloon, readvanced and reinflated balloon. No leak present when irrigated and flushed. Care continues.
[2023-10-13 05:24] LABS: Basophils Percent Auto 0.5 % (0.2-1.2); Eosinophils Absolute Auto 0.5 K/mm3 (0-0.3); Eosinophils Percent Auto 5.4 % (0-4.4); Hematocrit 32.1 % (42.0-52.0); Hemoglobin 10.1 g/dL (14.0-18.0); Immature Granulocyte Absolute 0.04 K/mm3 (0.00-0.031); Immature Granulocyte Percent A 0.5 % (0-0.5); Lymphocytes Absolute Auto 0.77 K/mm3 (0.9-3.2); Lymphocytes Percent Auto 9.3 % (18.3-44.2); Mean Corpuscular HGB Conc 31.5 g/dl (32-36); Mean Corpuscular Hemoglobin 28.1 pg (26-34); Mean Corpuscular Volume 89.2 fl (80-100); Mean Platelet Volume 11.2 fl (7.4-10.4); Monocytes Absolute Auto 0.6 K/mm3 (0.1-0.6); Monocytes Percent Auto 7.2 % (2.6-8.5); Neutrophils Absolute Auto 6.4 K/mm3 (1.3-6.7); Neutrophils Percent Auto 77.1 % (45.5-73.1); Platelet Count Result 261 k/mm3 (150-375); Red Cell Distribution Width 12.8 % (11.5-14.5); White Blood Count 8.3 K/mm3 (4.5-10.0)
[2023-10-13] MEDS: AMOXICILLIN/CLAVULANATE K 875-125 MG TAB 1 TABLET PO ×3 (05:32→20:50)
[2023-10-13 05:45] LABS: Alanine Aminotransferase 9 U/L (6-50); Albumin Level 3.2 g/dL (3.5-5.1); Alkaline Phosphatase 73 U/L (38-126); Anion Gap 4 mmol/L (8-16); Aspartate Amino Transferase 17 U/L (17-59); Bilirubin,Total 0.4 mg/dL (0.2-1.3); Blood Urea Nitrogen 16 mg/dL (9-20); Calcium 8.6 mg/dL (8.4-10.2); Carbon Dioxide 31 mmol/L (22-30); Chloride 96 mmol/L (98-107); Estimated CRCL calculation 56 ml/min; Estimated Glomerular Filt Rate > 60; Glucose 271 mg/dL (65-110); Potassium 3.8 mmol/L (3.4-5.0); Sodium 131 mmol/L (137-145)
[2023-10-13 08:06] LABS: Glucose Point of Care 252 mg/dl (65-105)
[2023-10-13] MEDS: INSULIN ASPART (*BKC) 100 UNITS/ML SUB-Q (08:12)
[2023-10-13] MEDS: INSULIN ASPART (*BKC) 100 UNITS/ML 10 UNITS SUB-Q ×3 (08:12→16:52)
[2023-10-13] MEDS: GABAPENTIN 300 MG CAPSULE PO ×2 (08:16→16:50)
[2023-10-13] MEDS: ASPIRIN 81 MG CHEWABLE TABLET 324 MG PO (08:16)
[2023-10-13] MEDS: DOXYCYCLINE HYCLATE 100 MG TABLET PO ×2 (08:17→20:51)
[2023-10-13] MEDS: CYANOCOBALAMIN 500 MCG TABLET PO (08:17)
[2023-10-13] MEDS: CELECOXIB 200 MG CAPSULE PO (08:17)
[2023-10-13] MEDS: CITALOPRAM HYDROBROMIDE 20 MG TABLET PO (08:17)
[2023-10-13] MEDS: PANTOPRAZOLE SODIUM IV 40 MG VIAL IV PUSH ×2 (08:25→20:51)
[2023-10-13] MEDS: MUPIROCIN 2% OINT 22 GM TUBE 1 APPLIC EACH NARE ×2 (08:25→20:50)
[2023-10-13] MEDS: SODIUM CHLORIDE 0.9% IV 500 ML IV CONT (11:00)
[2023-10-13 11:17] LABS: Glucose Point of Care 173 mg/dl (65-105)
--- NOTE | 2023-10-13 13:41 | PM.IMPN ---
Progress Note: A&P Assessment and Plan (1) Dysphagia: Code(s): R13.10 - Dysphagia, unspecified Status: Acute Assessment and Plan: Speech therapy was consulted will follow speech therapy recommendation (2) Diabetes mellitus, type II: Qualifiers: Diabetes mellitus fci insulin use: with fci use Code(s): E11.9 - Type 2 diabetes mellitus without complications Status: Acute Assessment and Plan: Better controlled continue insulin sliding scale (3) Aspiration pneumonia: Code(s): J69.0 - Pneumonitis due to inhalation of food and vomit Status: Acute Assessment and Plan: Associated with acute hypoxemic respiratory failure septic shock as above continue nebulizer treatment IV Zosyn DC IV vancomycin Improved repeat chest x-ray as outpatient in 1 week 10/12/23: Augmentin today (4) Hypoxia: Code(s): R09.02 - Hypoxemia Status: Acute Assessment and Plan: Acute hypoxemic respiratory failure secondary to aspiration pneumonia wean off oxygen management as above (5) Severe sepsis: Code(s): A41.9 - Sepsis, unspecified organism; R65.20 - Severe sepsis without septic shock Status: Acute Assessment and Plan: Secondary to aspiration pneumonia continue IV antibiotics follow CBC CMP patient still have tachycardia clinically improved (6) Essential (primary) hypertension: Code(s): I10 - Essential (primary) hypertension Status: Acute Assessment and Plan: Continue to monitor (7) Lower extremity edema: Code(s): R60.0 - Localized edema Status: Acute Assessment and Plan: Will give 1 dose of IV Lasix will get Doppler of lower extremity Plan Anticipate discharge to facility in 1-2 days once shortness of breath improved lower extremity swelling improved and if Doppler negative for DVT 10/13/23: +Orthostatic VS today; will give bolus Time Spent With Patient Time with patient: 25 - 35 minutes Subjective Date/time seen: 10/13/23 13:41 Interval history: 83 y/o M presents here with nausea, vomiting, hypoxia, hypotension, somnolence with PMH of DM2 (treated as type 1), diabetic peripheral neuropathy, HTN, GERD, and HLD. Patient presented here via EMS from at [facility] for altered mental status.? Per staff report to EMS, patient vomited and shortly after developed adventitious sounds (i.e. gurgling and choking noises).? Upon EMS arrival he was found to be hypoxic, hypotensive, and with reduced responsiveness.? Pinpoint pupils on their exam, EMS administered Narcan which did not resolve alteration.? Upon arrival to the ED, patient's O2 saturation was 51% and initial blood pressure was 64/36.? Patient was placed on a non-rebreather and quickly titrated to nasal cannula after improvement in oxygenation.? Patient does not require supplemental O2 at baseline.? Current concern for aspiration given nausea vomiting episode.? Patient is currently at rehab post hip surgery.? ED provider discussed patient's condition with , he is currently DNR, and would not want a central line or intubation. Patient does not remember emesis episode. Does not recall any precipitating symptoms and no complaints or symptoms noted this morning. Patient's only complaint at present is thirst. No numbness, tingling, changes in sensation or focal weakness identified by patient. No dysarthria. New difficulty swallowing. +Fatigue. Denies abdominal pain, shortness of breath, chest pain, or palpitations. No recent N/V/D other than episode today. No current nausea. Initial VS at presentation:? 97.3 F, HR 97, RR 24, 64/36, 51% on RA. ED workup showed no leukocytosis, mild anemia, increased platelet count, sodium 134, creatinine 1.2, glucose 303, lactic acid 3.7, UA not suspicious for UTI.? CXR showed mild interstitial edema, 1.4 cm ovoid opacity projecting over the right lung. Patient feels better today Shortness of breath has not Still has lower
[2023-10-13 16:48] LABS: Glucose Point of Care 151 mg/dl (65-105)
[2023-10-13] MEDS: INSULIN GLARGINE (*BKC) 100 UNITS/ML 32 UNITS SUB-Q (20:49)
[2023-10-13 20:50] LABS: Glucose Point of Care 183 mg/dl (65-105)
[2023-10-13] MEDS: SENNOSIDES 8.6 MG TABLET PO (20:50)
[2023-10-14] VITALS (24 sets, daily range): BP systolic 69–152; BP diastolic 44–88; PULSE 89–111; RESP 14–20; TEMP 36.3–36.5; O2SAT 95–100
[2023-10-14 04:34] LABS: Basophils Percent Auto 0.6 % (0.2-1.2); Eosinophils Absolute Auto 0.5 K/mm3 (0-0.3); Eosinophils Percent Auto 7.6 % (0-4.4); Hematocrit 31.6 % (42.0-52.0); Hemoglobin 9.9 g/dL (14.0-18.0); Immature Granulocyte Absolute 0.04 K/mm3 (0.00-0.031); Immature Granulocyte Percent A 0.6 % (0-0.5); Lymphocytes Absolute Auto 0.98 K/mm3 (0.9-3.2); Lymphocytes Percent Auto 14.3 % (18.3-44.2); Mean Corpuscular HGB Conc 31.3 g/dl (32-36); Mean Corpuscular Hemoglobin 27.9 pg (26-34); Monocytes Absolute Auto 0.7 K/mm3 (0.1-0.6); Monocytes Percent Auto 10.6 % (2.6-8.5); Neutrophils Absolute Auto 4.6 K/mm3 (1.3-6.7); Neutrophils Percent Auto 66.3 % (45.5-73.1); Platelet Count Result 259 k/mm3 (150-375); Red Blood Count 3.55 M/mm3 (4.6-6.20); White Blood Count 6.9 K/mm3 (4.5-10.0)
[2023-10-14 04:48] LABS: Alanine Aminotransferase 8 U/L (6-50); Albumin Level 3.2 g/dL (3.5-5.1); Alkaline Phosphatase 60 U/L (38-126); Anion Gap 4 mmol/L (8-16); Aspartate Amino Transferase 16 U/L (17-59); Bilirubin,Total 0.4 mg/dL (0.2-1.3); Blood Urea Nitrogen 13 mg/dL (9-20); Carbon Dioxide 30 mmol/L (22-30); Chloride 98 mmol/L (98-107); Estimated CRCL calculation 63 ml/min; Estimated Glomerular Filt Rate > 60; Glucose 217 mg/dL (65-110); Potassium 3.8 mmol/L (3.4-5.0); Sodium 132 mmol/L (137-145)
[2023-10-14] MEDS: HYDROcodone/acetaminophen (*CRX) 5-325 MG TABLET 1 TAB PO ×2 (05:52→21:49)
[2023-10-14] MEDS: IPRATROPIUM 0.5 MG/ALBUTEROL SULFATE 2.5 MG AMPUL.NEB 3 ML INHALATION ×3 (07:33→20:45)
[2023-10-14 08:42] LABS: Glucose Point of Care 249 mg/dl (65-105)
[2023-10-14] MEDS: CYANOCOBALAMIN 500 MCG TABLET PO (08:47)
[2023-10-14] MEDS: PANTOPRAZOLE SODIUM IV 40 MG VIAL IV PUSH ×2 (08:47→21:38)
[2023-10-14] MEDS: GABAPENTIN 300 MG CAPSULE PO ×2 (08:47→18:13)
[2023-10-14] MEDS: CELECOXIB 200 MG CAPSULE PO (08:47)
[2023-10-14] MEDS: MUPIROCIN 2% OINT 22 GM TUBE 1 APPLIC EACH NARE ×2 (08:48→21:38)
[2023-10-14] MEDS: INSULIN ASPART (*BKC) 100 UNITS/ML 10 UNITS SUB-Q ×3 (08:48→18:13)
[2023-10-14] MEDS: CITALOPRAM HYDROBROMIDE 20 MG TABLET PO (08:48)
[2023-10-14] MEDS: INSULIN ASPART (*BKC) 100 UNITS/ML SUB-Q (08:48)
[2023-10-14] MEDS: ASPIRIN 81 MG CHEWABLE TABLET 324 MG PO (08:50)
--- NOTE | 2023-10-14 10:38 | PCNFU ---
Nutrition Follow-Up Complete: Suboptimal po intake related to appetite as evidenced by pt report Goal: PO intake 75% of meals patient is meeting goal. No new goal. Pt current nutrition is DBCC/Easy to Chew,Level 7. Last recorded weight is 81.9 kg, stable Bowel Motility:+BM reported 10/12 Labs Reviewed:Glu 217, Na 132, Alb 3.2 Meds Noted:NovoLog, Lantus, Zofran Skin: WNL Additional Notes: Patient is eating > 75% of DBCC/Easy to Chew, Level 7 diet. Agree with diet orders. No further nutritional interventions needed at this time. Monitor intake, wt, labs. Follow up in 7 days.
[2023-10-14 12:39] LABS: Glucose Point of Care 182 mg/dl (65-105)
--- NOTE | 2023-10-14 17:16 | PM.IMPN ---
Progress Note: A&P Assessment and Plan (1) Dysphagia: Code(s): R13.10 - Dysphagia, unspecified Status: Acute Assessment and Plan: Speech therapy was consulted will follow speech therapy recommendation (2) Diabetes mellitus, type II: Qualifiers: Diabetes mellitus prison insulin use: with prison use Code(s): E11.9 - Type 2 diabetes mellitus without complications Status: Acute Assessment and Plan: Better controlled continue insulin sliding scale (3) Aspiration pneumonia: Code(s): J69.0 - Pneumonitis due to inhalation of food and vomit Status: Acute Assessment and Plan: Associated with acute hypoxemic respiratory failure septic shock as above continue nebulizer treatment IV Zosyn DC IV vancomycin Improved repeat chest x-ray as outpatient in 1 week 10/12/23: Augmentin today 10/14/23: continue Abx and oxygen (4) Hypoxia: Code(s): R09.02 - Hypoxemia Status: Acute Assessment and Plan: Acute hypoxemic respiratory failure secondary to aspiration pneumonia wean off oxygen management as above (5) Severe sepsis: Code(s): A41.9 - Sepsis, unspecified organism; R65.20 - Severe sepsis without septic shock Status: Acute Assessment and Plan: Secondary to aspiration pneumonia continue IV antibiotics follow CBC CMP patient still have tachycardia clinically improved (6) Lower extremity edema: Code(s): R60.0 - Localized edema Status: Acute Assessment and Plan: Will give 1 dose of IV Lasix will get Doppler of lower extremity (7) Orthostasis: Code(s): I95.1 - Orthostatic hypotension Status: Acute Assessment and Plan: 10/14/23: Added Midodrine; recheck Orthostasis BP Plan Anticipate discharge to facility in 1-2 days once shortness of breath improved lower extremity swelling improved and if Doppler negative for DVT 10/13/23: +Orthostatic VS today; will give bolus Time Spent With Patient Time with patient: 25 - 35 minutes Subjective Date/time seen: 10/14/23 17:16 Interval history: 83 y/o M presents here with nausea, vomiting, hypoxia, hypotension, somnolence with PMH of DM2 (treated as type 1), diabetic peripheral neuropathy, HTN, GERD, and HLD. Patient presented here via EMS from at [facility] for altered mental status.? Per staff report to EMS, patient vomited and shortly after developed adventitious sounds (i.e. gurgling and choking noises).? Upon EMS arrival he was found to be hypoxic, hypotensive, and with reduced responsiveness.? Pinpoint pupils on their exam, EMS administered Narcan which did not resolve alteration.? Upon arrival to the ED, patient's O2 saturation was 51% and initial blood pressure was 64/36.? Patient was placed on a non-rebreather and quickly titrated to nasal cannula after improvement in oxygenation.? Patient does not require supplemental O2 at baseline.? Current concern for aspiration given nausea vomiting episode.? Patient is currently at rehab post hip surgery.? ED provider discussed patient's condition with , he is currently DNR, and would not want a central line or intubation. Patient does not remember emesis episode. Does not recall any precipitating symptoms and no complaints or symptoms noted this morning. Patient's only complaint at present is thirst. No numbness, tingling, changes in sensation or focal weakness identified by patient. No dysarthria. New difficulty swallowing. +Fatigue. Denies abdominal pain, shortness of breath, chest pain, or palpitations. No recent N/V/D other than episode today. No current nausea. Initial VS at presentation:? 97.3 F, HR 97, RR 24, 64/36, 51% on RA. ED workup showed no leukocytosis, mild anemia, increased platelet count, sodium 134, creatinine 1.2, glucose 303, lactic acid 3.7, UA not suspicious for UTI.? CXR showed mild interstitial edema, 1.4 cm ovoid opacity projecting over the right lung. Patient feels better today Shortness
[2023-10-14 17:25] LABS: Glucose Point of Care 125 mg/dl (65-105)
[2023-10-14] MEDS: MIDODRINE HCL 10 MG TABLET PO (18:13)
[2023-10-14] MEDS: DOXYCYCLINE HYCLATE 100 MG TABLET PO (18:56)
[2023-10-14] MEDS: AMOXICILLIN/CLAVULANATE K 875-125 MG TAB 1 TABLET PO (18:58)
[2023-10-14 20:04] LABS: Glucose Point of Care 174 mg/dl (65-105)
[2023-10-14] MEDS: INSULIN GLARGINE (*BKC) 100 UNITS/ML 32 UNITS SUB-Q (21:37)
[2023-10-14] MEDS: SENNOSIDES 8.6 MG TABLET PO (21:37)
[2023-10-15] VITALS (22 sets, daily range): BP systolic 84–162; BP diastolic 48–78; PULSE 66–100; RESP 14–18; TEMP 36.2–37; O2SAT 93–99
[2023-10-15] MEDS: IPRATROPIUM 0.5 MG/ALBUTEROL SULFATE 2.5 MG AMPUL.NEB 3 ML INHALATION ×4 (02:04→20:30)
[2023-10-15 04:54] LABS: Basophils Percent Auto 0.6 % (0.2-1.2); Eosinophils Absolute Auto 0.6 K/mm3 (0-0.3); Eosinophils Percent Auto 8.7 % (0-4.4); Hematocrit 30.3 % (42.0-52.0); Hemoglobin 9.4 g/dL (14.0-18.0); Immature Granulocyte Absolute 0.05 K/mm3 (0.00-0.031); Immature Granulocyte Percent A 0.7 % (0-0.5); Lymphocytes Absolute Auto 1.05 K/mm3 (0.9-3.2); Lymphocytes Percent Auto 14.7 % (18.3-44.2); Mean Corpuscular Hemoglobin 27.8 pg (26-34); Mean Corpuscular Volume 89.6 fl (80-100); Mean Platelet Volume 10.5 fl (7.4-10.4); Monocytes Absolute Auto 0.8 K/mm3 (0.1-0.6); Monocytes Percent Auto 11.8 % (2.6-8.5); Neutrophils Absolute Auto 4.5 K/mm3 (1.3-6.7); Neutrophils Percent Auto 63.5 % (45.5-73.1); Platelet Count Result 238 k/mm3 (150-375); Red Blood Count 3.38 M/mm3 (4.6-6.20); Red Cell Distribution Width 13.1 % (11.5-14.5); White Blood Count 7.1 K/mm3 (4.5-10.0)
[2023-10-15 05:11] LABS: Alanine Aminotransferase 10 U/L (6-50); Albumin Level 3.2 g/dL (3.5-5.1); Alkaline Phosphatase 56 U/L (38-126); Anion Gap 3 mmol/L (8-16); Aspartate Amino Transferase 17 U/L (17-59); Bilirubin,Total 0.3 mg/dL (0.2-1.3); Blood Urea Nitrogen 17 mg/dL (9-20); Calcium 9.1 mg/dL (8.4-10.2); Carbon Dioxide 31 mmol/L (22-30); Chloride 98 mmol/L (98-107); Estimated CRCL calculation 51 ml/min; Estimated Glomerular Filt Rate > 60; Glucose 236 mg/dL (65-110); Potassium 4.2 mmol/L (3.4-5.0); Sodium 132 mmol/L (137-145)
[2023-10-15] MEDS: AMOXICILLIN/CLAVULANATE K 875-125 MG TAB 1 TABLET PO ×2 (06:45→17:17)
[2023-10-15] MEDS: DOXYCYCLINE HYCLATE 100 MG TABLET PO ×2 (06:45→17:17)
[2023-10-15] MEDS: CITALOPRAM HYDROBROMIDE 20 MG TABLET PO (08:20)
[2023-10-15] MEDS: CELECOXIB 200 MG CAPSULE PO (08:20)
[2023-10-15] MEDS: CYANOCOBALAMIN 500 MCG TABLET PO (08:20)
[2023-10-15] MEDS: ASPIRIN 81 MG CHEWABLE TABLET 324 MG PO (08:20)
[2023-10-15] MEDS: PANTOPRAZOLE SODIUM IV 40 MG VIAL IV PUSH (08:21)
[2023-10-15] MEDS: GABAPENTIN 300 MG CAPSULE PO ×2 (08:21→17:09)
[2023-10-15] MEDS: MIDODRINE HCL 10 MG TABLET PO ×3 (08:21→17:09)
[2023-10-15] MEDS: INSULIN ASPART (*BKC) 100 UNITS/ML SUB-Q ×2 (08:27→12:05)
[2023-10-15] MEDS: INSULIN ASPART (*BKC) 100 UNITS/ML 10 UNITS SUB-Q ×2 (08:28→12:05)
[2023-10-15 08:38] LABS: Glucose Point of Care 216 mg/dl (65-105)
--- NOTE | 2023-10-15 12:13 | PM.IMPN ---
Progress Note: A&P Assessment and Plan (1) Orthostasis: Code(s): I95.1 - Orthostatic hypotension Status: Acute (2) Essential (primary) hypertension: Code(s): I10 - Essential (primary) hypertension Status: Acute (3) Lower extremity edema: Code(s): R60.0 - Localized edema Status: Acute (4) Dysphagia: Code(s): R13.10 - Dysphagia, unspecified Status: Acute (5) Aspiration pneumonia: Code(s): J69.0 - Pneumonitis due to inhalation of food and vomit Status: Acute (6) Severe sepsis: Code(s): A41.9 - Sepsis, unspecified organism; R65.20 - Severe sepsis without septic shock Status: Acute Plan # orthostatic hypotension -patient still has positive orthostatics morning of 10/15/2023 -continue midodrine 10 mg t.i.d. -will continue monitor on telemetry -PT an OT consulted # aspiration pneumonia # severe sepsis -patient has dysphagia, continue easy to chew diet -antibiotics: Completing antibiotic regimen with Augmentin, doxycycline -speech therapy consult -recently presented with severe sepsis and acute hypoxic respiratory failure. Which really was started on vancomycin and Zosyn # chronic conditions -insert admit type 2 diabetes: Glargine 32 units nightly, aspart 10 units t.i.d. a.c., sliding scale insulin, Accu-Cheks a.c. HS, hypoglycemia protocol, A1c -anxiety: Citalopram, p.r.n. Xanax -arthritis: Celebrex -on aspirin 324 mg daily -peripheral edema: P.r.n. Lasix -peripheral diabetic neuropathy: Gabapentin -GERD: Protonix Diet: Diabetic diet level 7 easy to chew, dietary supplement DVT prophylaxis: SCDs Code status: DNR Disposition: Downgrade from IMU to echoecho tele, disposition retirement facility Time Spent With Patient Time: 35 minutes Subjective Date/time seen: 10/15/23 12:13 Interval history: Patient seen and examined. He has no new complaints, no overnight events. Patient has positive orthostatic vital signs. Continue midodrine. Patient using a walker, and plan for retirement facility disposition. He is on Augmentin and doxycycline for aspiration pneumonia and is doing well. We will downgrade from IMU to echoecho tele. He denies fever, chills, nausea vomiting, diarrhea, chest pain, shortness of breath. Review of Systems Review of Systems: 10 point ROS complete, negative other than what is specified in HPI. Exam Narrative: - GENERAL: Pleasant male no acute distress. Well-nourished. - EYES: EOMI. Anicteric. - HENT: Moist mucous membranes. - LUNGS: Clear to auscultation bilaterally, no wheezing, rhonchi, or rales. - CARDIOVASCULAR: Regular rate and rhythm. No murmur. No JVD. - ABDOMEN: Soft, non-tender and non-distended. No palpable masses. - EXTREMITIES: Trace edema. Peripheral pulses 2+. Non-tender. - NEUROLOGIC: No focal neurological deficits. CN II-XII grossly intact. - PSYCHIATRIC: Awake, Alert and oriented x 3. Appropriate mood and affect. - SKIN: No rashes or lesions. Warm. - LYMPH: No cervical lymphadenopathy. Objective Data Vital Signs Vital Signs: Vital Signs - 24 hr 10/14/23 13:28 10/14/23 13:36 10/14/23 16:00 Temperature 36.3 C L Pulse Rate 95 96 98 Respiratory Rate 18 18 14 Blood Pressure 109/60 Pulse Oximetry 98 Oxygen Delivery Fraction of Inspired Oxygen 10/14/23 16:00 10/14/23 14:00 10/14/23 16:00 Temperature Pulse Rate 95 97 Respiratory Rate Blood Pressure Pulse Oximetry Oxygen Delivery Room Air Fraction of Inspired Oxygen 10/14/23 18:00 10/14/23 20:04 10/14/23 20:47 Temperature 36.4 C Pulse Rate 97 97 89 Respiratory Rate 16 18 Blood Pressure 122/63 Pulse Oximetry 95 Oxygen Delivery Fraction of Inspired Oxygen 10/14/23 20:57 10/14/23 20:57 10/14/23 23:36 Temperature 36.5 C Pulse Rate 91 92 Respiratory Rate 18 16 Blood Pressure 127/73 Pulse Oximetry 97 96 Oxygen Delivery Room Air Fraction of Inspired Oxygen 21
[2023-10-15 12:33] LABS: Glucose Point of Care 214 mg/dl (65-105)
[2023-10-15 17:15] LABS: Glucose Point of Care 117 mg/dl (65-105)
[2023-10-15 20:00] LABS: Glucose Point of Care 201 mg/dl (65-105)
[2023-10-15] MEDS: INSULIN GLARGINE (*BKC) 100 UNITS/ML 32 UNITS SUB-Q (20:06)
[2023-10-15] MEDS: SENNOSIDES 8.6 MG TABLET PO (20:06)
[2023-10-16] VITALS (23 sets, daily range): BP systolic 112–171; BP diastolic 56–82; PULSE 80–95; RESP 15–20; TEMP 36.1–36.8; O2SAT 93–100
[2023-10-16] MEDS: IPRATROPIUM 0.5 MG/ALBUTEROL SULFATE 2.5 MG AMPUL.NEB 3 ML INHALATION ×4 (01:46→20:29)
--- NOTE | 2023-10-16 03:55 | PC.NURSE ---
Daylight Savings Time For Daylight Savings Time Ending in the Fall - Clocks are moved back. For Daylight Savings Time Beginning in the Spring - Clocks are moved ahead. For [facility], the time of change occurs at 0200 hrs. Time is taken from the hand bender. This entry on the patient's chart recognizes the change in time reflected during documentation. Example: 2 entries for vital signs may be charted for 0200 hrs.
[2023-10-16 04:39] LABS: Basophils Percent Auto 0.6 % (0.2-1.2); Eosinophils Absolute Auto 0.5 K/mm3 (0-0.3); Eosinophils Percent Auto 7.6 % (0-4.4); Hematocrit 34.2 % (42.0-52.0); Hemoglobin 10.6 g/dL (14.0-18.0); Immature Granulocyte Absolute 0.04 K/mm3 (0.00-0.031); Immature Granulocyte Percent A 0.6 % (0-0.5); Lymphocytes Percent Auto 12.6 % (18.3-44.2); Mean Corpuscular Hemoglobin 27.5 pg (26-34); Mean Corpuscular Volume 88.8 fl (80-100); Mean Platelet Volume 10.1 fl (7.4-10.4); Monocytes Absolute Auto 0.8 K/mm3 (0.1-0.6); Neutrophils Absolute Auto 4.8 K/mm3 (1.3-6.7); Neutrophils Percent Auto 67.6 % (45.5-73.1); Platelet Count Result 249 k/mm3 (150-375); Red Blood Count 3.85 M/mm3 (4.6-6.20); White Blood Count 7.1 K/mm3 (4.5-10.0)
[2023-10-16 04:58] LABS: Alanine Aminotransferase 9 U/L (6-50); Albumin Level 3.4 g/dL (3.5-5.1); Alkaline Phosphatase 71 U/L (38-126); Anion Gap 1 mmol/L (8-16); Aspartate Amino Transferase 19 U/L (17-59); Bilirubin,Total 0.4 mg/dL (0.2-1.3); Blood Urea Nitrogen 17 mg/dL (9-20); Calcium 9.3 mg/dL (8.4-10.2); Carbon Dioxide 33 mmol/L (22-30); Chloride 97 mmol/L (98-107); Estimated CRCL calculation 56 ml/min; Estimated Glomerular Filt Rate > 60; Glucose 311 mg/dL (65-110); Potassium 4.2 mmol/L (3.4-5.0); Sodium 131 mmol/L (137-145)
[2023-10-16 07:42] LABS: Glucose Point of Care 291 mg/dl (65-105)
[2023-10-16] MEDS: ASPIRIN 81 MG CHEWABLE TABLET 324 MG PO (09:08)
[2023-10-16] MEDS: PANTOPRAZOLE 40 MG TABLET PO (09:09)
[2023-10-16] MEDS: CELECOXIB 200 MG CAPSULE PO (09:09)
[2023-10-16] MEDS: MIDODRINE HCL 2.5 MG TABLET 5 MG PO ×3 (09:10→17:42)
[2023-10-16] MEDS: GABAPENTIN 300 MG CAPSULE PO ×2 (09:10→17:41)
[2023-10-16] MEDS: CITALOPRAM HYDROBROMIDE 20 MG TABLET PO (09:10)
[2023-10-16] MEDS: CYANOCOBALAMIN 500 MCG TABLET PO (09:11)
[2023-10-16] MEDS: INSULIN ASPART (*BKC) 100 UNITS/ML 10 UNITS SUB-Q ×2 (09:12→12:48)
[2023-10-16] MEDS: INSULIN ASPART (*BKC) 100 UNITS/ML SUB-Q ×2 (09:13→12:48)
--- NOTE | 2023-10-16 10:59 | PM.IMPN ---
Progress Note: A&P Assessment and Plan (1) Orthostasis: Code(s): I95.1 - Orthostatic hypotension Status: Acute (2) Lower extremity edema: Code(s): R60.0 - Localized edema Status: Acute (3) Diabetes mellitus, type II: Qualifiers: Diabetes mellitus remote computer terminal operator insulin use: with remote computer terminal operator use Code(s): E11.9 - Type 2 diabetes mellitus without complications Status: Acute (4) Dysphagia: Code(s): R13.10 - Dysphagia, unspecified Status: Acute (5) Aspiration pneumonia: Code(s): J69.0 - Pneumonitis due to inhalation of food and vomit Status: Acute (6) Hyponatremia: Code(s): E87.1 - Hypo-osmolality and hyponatremia Status: Acute Plan # orthostatic hypotension -BP improving on midodrine -decrease midodrine 10->5mg TID -will continue monitor on telemetry -PT an OT consulted # hyponatremia -sodium down to 131, has been slowly drifting downward -fluid restriction 1500cc / day # aspiration pneumonia # severe sepsis -patient has dysphagia, continue easy to chew diet -antibiotics:? Completing antibiotic regimen with Augmentin, doxycycline (on admission was given vancomycin and Zosyn) -speech therapy consult -originally presented with severe sepsis and acute hypoxic respiratory failure # chronic conditions -insert admit type 2 diabetes:? Glargine 32 units nightly, aspart 10 units t.i.d. a.c., sliding scale insulin, Accu-Cheks a.c. HS, hypoglycemia protocol, A1c -anxiety: Citalopram, p.r.n. Xanax -arthritis: Celebrex -on aspirin 324 mg daily -peripheral edema:? P.r.n. Lasix -peripheral diabetic neuropathy: Gabapentin -GERD: Protonix Diet:??Diabetic diet level 7 easy to chew, dietary supplement DVT prophylaxis:?SCDs Code status:? DNR Disposition:??med tele, disposition alf facility Time Spent With Patient Time: 35 minutes Subjective Date/time seen: 10/16/23 10:59 Interval history: Patient seen and examined. He is doing well no new complaints. His blood pressure stable, orthostatics this morning were normal, will decrease midodrine to 5 mg TID. Sodium is low at 131, will fluid restrict to 1500 cc per day. We are looking at rehab disposition. Patient denies fever, chills, nausea, vomiting, diarrhea, chest pain, shortness of breath. Review of Systems Review of Systems: 10 point ROS complete, negative other than what is specified in HPI. Exam Narrative: - GENERAL:? Pleasant male no acute distress. Well-nourished. - EYES: EOMI. Anicteric. - HENT: Moist mucous membranes. - LUNGS: Clear to auscultation bilaterally, no wheezing, rhonchi, or rales. - CARDIOVASCULAR: Regular rate and rhythm. No murmur. No JVD. - ABDOMEN: Soft, non-tender and non-distended. No palpable masses. - EXTREMITIES:? Trace edema. Peripheral pulses 2+. Non-tender. - NEUROLOGIC: No focal neurological deficits. CN II-XII grossly intact. - PSYCHIATRIC: Awake, Alert and oriented x 3. Appropriate mood and affect. - SKIN: No rashes or lesions. Warm. - LYMPH: No cervical lymphadenopathy. Objective Data Vital Signs Vital Signs: Vital Signs - 24 hr 10/15/23 11:42 10/15/23 14:05 10/15/23 14:14 Temperature 36.2 C L Pulse Rate 91 92 88 Respiratory Rate 18 18 18 Blood Pressure 132/68 Pulse Oximetry 97 Oxygen Delivery Fraction of Inspired Oxygen 10/15/23 12:00 10/15/23 16:00 10/15/23 16:55 Temperature 37.0 C Pulse Rate 66 87 91 Respiratory Rate Blood Pressure 114/55 L Pulse Oximetry 96 Oxygen Delivery Fraction of Inspired Oxygen 10/15/23 20:31 10/15/23 20:32 10/15/23 20:37 Temperature Pulse Rate 88 89 Respiratory Rate 18 18 Blood Pressure Pulse Oximetry 96 Oxygen Delivery Room Air Fraction of Inspired Oxygen 21 10/15/23 20:00 10/15/23 20:00 10/15/23 20:00 Temperature 36.2 C L Pulse Rate 92 Respiratory Rate 15 Blood Pressure 153/69 H 153/69 H 117/59 L Pulse Oximetry 99 Ox
[2023-10-16 11:47] LABS: Glucose Point of Care 303 mg/dl (65-105)
[2023-10-16 16:37] LABS: Glucose Point of Care 100 mg/dl (65-105)
[2023-10-16 20:41] LABS: Glucose Point of Care 164 mg/dl (65-105)
[2023-10-16] MEDS: HYDROcodone/acetaminophen (*CRX) 5-325 MG TABLET 1 TAB PO (20:57)
[2023-10-16] MEDS: SENNOSIDES 8.6 MG TABLET PO (20:58)
[2023-10-16] MEDS: INSULIN GLARGINE (*BKC) 100 UNITS/ML 32 UNITS SUB-Q (20:59)
[2023-10-17] VITALS (24 sets, daily range): BP systolic 96–144; BP diastolic 46–79; PULSE 78–101; RESP 14–20; TEMP 36.4–36.9; O2SAT 91–100
[2023-10-17] MEDS: IPRATROPIUM 0.5 MG/ALBUTEROL SULFATE 2.5 MG AMPUL.NEB 3 ML INHALATION ×4 (03:15→19:25)
[2023-10-17 04:46] LABS: Basophils Percent Auto 0.7 % (0.2-1.2); Eosinophils Absolute Auto 0.6 K/mm3 (0-0.3); Eosinophils Percent Auto 10.5 % (0-4.4); Hematocrit 32.5 % (42.0-52.0); Immature Granulocyte Absolute 0.04 K/mm3 (0.00-0.031); Immature Granulocyte Percent A 0.7 % (0-0.5); Lymphocytes Absolute Auto 1.43 K/mm3 (0.9-3.2); Lymphocytes Percent Auto 23.4 % (18.3-44.2); Mean Corpuscular HGB Conc 30.8 g/dl (32-36); Mean Corpuscular Hemoglobin 27.4 pg (26-34); Mean Platelet Volume 10.6 fl (7.4-10.4); Monocytes Absolute Auto 0.7 K/mm3 (0.1-0.6); Monocytes Percent Auto 10.8 % (2.6-8.5); Neutrophils Absolute Auto 3.3 K/mm3 (1.3-6.7); Neutrophils Percent Auto 53.9 % (45.5-73.1); Platelet Count Result 257 k/mm3 (150-375); Red Blood Count 3.65 M/mm3 (4.6-6.20); Red Cell Distribution Width 13.1 % (11.5-14.5); White Blood Count 6.1 K/mm3 (4.5-10.0)
[2023-10-17 05:02] LABS: Alanine Aminotransferase 8 U/L (6-50); Albumin Level 3.4 g/dL (3.5-5.1); Alkaline Phosphatase 64 U/L (38-126); Anion Gap 1 mmol/L (8-16); Aspartate Amino Transferase 19 U/L (17-59); Bilirubin,Total 0.4 mg/dL (0.2-1.3); Blood Urea Nitrogen 23 mg/dL (9-20); Calcium 9.3 mg/dL (8.4-10.2); Carbon Dioxide 31 mmol/L (22-30); Chloride 97 mmol/L (98-107); Estimated CRCL calculation 56 ml/min; Estimated Glomerular Filt Rate > 60; Glucose 172 mg/dL (65-110); Potassium 3.9 mmol/L (3.4-5.0); Sodium 129 mmol/L (137-145)
[2023-10-17 08:12] LABS: Glucose Point of Care 177 mg/dl (65-105)
[2023-10-17] MEDS: ASPIRIN 81 MG CHEWABLE TABLET 324 MG PO (08:45)
[2023-10-17] MEDS: INSULIN ASPART (*BKC) 100 UNITS/ML 10 UNITS SUB-Q ×2 (08:46→12:17)
[2023-10-17] MEDS: PANTOPRAZOLE 40 MG TABLET PO (08:46)
[2023-10-17] MEDS: MIDODRINE HCL 2.5 MG TABLET 5 MG PO (08:46)
[2023-10-17] MEDS: GABAPENTIN 300 MG CAPSULE PO ×2 (08:46→17:30)
[2023-10-17] MEDS: CYANOCOBALAMIN 500 MCG TABLET PO (08:46)
[2023-10-17] MEDS: CITALOPRAM HYDROBROMIDE 20 MG TABLET PO (08:46)
[2023-10-17] MEDS: CELECOXIB 200 MG CAPSULE PO (08:46)
[2023-10-17 11:45] LABS: Glucose Point of Care 174 mg/dl (65-105)
[2023-10-17] MEDS: MIDODRINE HCL 2.5 MG TABLET 7.5 MG PO ×2 (12:17→17:30)
--- NOTE | 2023-10-17 15:28 | PM.IMPN ---
Progress Note: A&P Assessment and Plan (1) Orthostasis: Code(s): I95.1 - Orthostatic hypotension Status: Acute (2) Lower extremity edema: Code(s): R60.0 - Localized edema Status: Acute (3) Diabetes mellitus, type II: Qualifiers: Diabetes mellitus terminal make up operator insulin use: with terminal make up operator use Code(s): E11.9 - Type 2 diabetes mellitus without complications Status: Acute (4) Dysphagia: Code(s): R13.10 - Dysphagia, unspecified Status: Acute (5) Aspiration pneumonia: Code(s): J69.0 - Pneumonitis due to inhalation of food and vomit Status: Acute (6) Hyponatremia: Code(s): E87.1 - Hypo-osmolality and hyponatremia Status: Acute Plan # orthostatic hypotension -BP improving on midodrine -decrease midodrine 5 -> 7.5mg TID -on the 5 mg dose his blood pressure dropped to 90 systolic and he was dizzy and symptomatic -will continue monitor on telemetry -PT an OT consulted # hyponatremia -sodium down to 129, has been slowly drifting downward -fluid restriction 1500cc / day -if continues to drop we may need to add salt tabs # aspiration pneumonia, resolved # severe sepsis, resolved -patient has dysphagia, continue easy to chew diet -antibiotics:? Completing antibiotic regimen with Augmentin, doxycycline (on admission was given vancomycin and Zosyn) -speech therapy consult -originally presented with severe sepsis and acute hypoxic respiratory failure # chronic conditions -insulin dependent type 2 diabetes:? Glargine 32 units nightly, aspart 10 units t.i.d. a.c., sliding scale insulin, Accu-Cheks a.c. HS, hypoglycemia protocol, A1c 10.9 -anxiety: Citalopram, p.r.n. Xanax -arthritis: Celebrex -on aspirin 324 mg daily -peripheral edema:? P.r.n. Lasix -peripheral diabetic neuropathy: Gabapentin -GERD: Protonix Diet:??Diabetic diet level 7 easy to chew, dietary supplement DVT prophylaxis:?SCDs, SQ heparin Code status:? DNR Disposition:??pending placement to SNF Subjective Date/time seen: 10/17/23 15:28 Interval history: Patient seen and examined. He is doing well no new complaints. Patient's blood pressure is fluctuating down to 96/46. We have adjusted his midodrine to 7.5 mg t.i.d. (with 10 mg dose he is too high, 5 mg dose too low). He denies fever, chills, nausea, vomiting, diarrhea. When his blood pressure is low he does get symptomatic with dizziness such as this morning. Review of Systems Review of Systems: 10 point ROS complete, negative other than what is specified in HPI. Exam Narrative: - GENERAL:? Pleasant male no acute distress. Well-nourished. - EYES: EOMI. Anicteric. - HENT: Moist mucous membranes. - LUNGS: Clear to auscultation bilaterally, no wheezing, rhonchi, or rales. - CARDIOVASCULAR: Regular rate and rhythm. No murmur. No JVD. - ABDOMEN: Soft, non-tender and non-distended. No palpable masses. - EXTREMITIES: no edema. Peripheral pulses 2+. Non-tender. - NEUROLOGIC: No focal neurological deficits. CN II-XII grossly intact. - PSYCHIATRIC: Awake, Alert and oriented x 3. Appropriate mood and affect. - SKIN: No rashes or lesions. Warm. - LYMPH: No cervical lymphadenopathy. Objective Data Vital Signs Vital Signs: Vital Signs - 24 hr 10/16/23 16:11 10/16/23 16:00 10/16/23 20:31 Temperature 36.1 C L Pulse Rate 87 87 Respiratory Rate 18 Blood Pressure 115/57 L Pulse Oximetry 100 93 Oxygen Delivery Room Air 10/16/23 20:31 10/16/23 20:36 10/16/23 20:59 Temperature Pulse Rate 80 81 Respiratory Rate 18 18 Blood Pressure 112/59 L Pulse Oximetry Oxygen Delivery 10/16/23 20:59 10/16/23 21:00 10/16/23 23:59 Temperature 36.3 C L 36.4 C Pulse Rate 84 86 Respiratory Rate 18 18 Blood Pressure 112/56 L 134/64 132/62 Pulse Oximetry 96 96 Oxygen Delivery 10/16/23 20:00 10/17/23 00:00 10/17/23 03:17 Temperature Pulse Rate 81 86 80 Respiratory Rate 16 Blood Press
[2023-10-17 17:11] LABS: Glucose Point of Care 62 mg/dl (65-105)
[2023-10-17] MEDS: INSULIN ASPART (*BKC) 100 UNITS/ML 8 UNITS SUB-Q (17:30)
[2023-10-17 18:57] LABS: Glucose Point of Care 117 mg/dl (65-105)
[2023-10-17 20:20] LABS: Glucose Point of Care 82 mg/dl (65-105)
[2023-10-17] MEDS: HEPARIN SODIUM 5,000 UNITS/ML VIAL 5000 UNITS SUB-Q (21:29)
[2023-10-17] MEDS: SENNOSIDES 8.6 MG TABLET PO (21:29)
[2023-10-17] MEDS: MICONAZOLE NITRATE 2% CREAM 30 GM TUBE 1 APPLIC TOPICAL (21:30)
[2023-10-18] VITALS (9 sets, daily range): BP systolic 122–131; BP diastolic 66–71; PULSE 81–94; RESP 14–18; TEMP 36.5–36.8; O2SAT 94–97
[2023-10-18] MEDS: IPRATROPIUM 0.5 MG/ALBUTEROL SULFATE 2.5 MG AMPUL.NEB 3 ML INHALATION ×2 (01:30→08:26)
[2023-10-18 04:53] LABS: Basophils Percent Auto 0.5 % (0.2-1.2); Eosinophils Absolute Auto 0.6 K/mm3 (0-0.3); Eosinophils Percent Auto 7.3 % (0-4.4); Hematocrit 32.6 % (42.0-52.0); Hemoglobin 10.1 g/dL (14.0-18.0); Immature Granulocyte Absolute 0.04 K/mm3 (0.00-0.031); Immature Granulocyte Percent A 0.5 % (0-0.5); Lymphocytes Absolute Auto 1.08 K/mm3 (0.9-3.2); Lymphocytes Percent Auto 13.4 % (18.3-44.2); Mean Corpuscular Hemoglobin 27.9 pg (26-34); Mean Corpuscular Volume 90.1 fl (80-100); Mean Platelet Volume 10.3 fl (7.4-10.4); Monocytes Absolute Auto 0.6 K/mm3 (0.1-0.6); Monocytes Percent Auto 7.3 % (2.6-8.5); Neutrophils Absolute Auto 5.7 K/mm3 (1.3-6.7); Platelet Count Result 265 k/mm3 (150-375); Red Blood Count 3.62 M/mm3 (4.6-6.20); Red Cell Distribution Width 13.1 % (11.5-14.5); White Blood Count 8.1 K/mm3 (4.5-10.0)
[2023-10-18 05:06] LABS: Alanine Aminotransferase 9 U/L (6-50); Albumin Level 3.5 g/dL (3.5-5.1); Alkaline Phosphatase 62 U/L (38-126); Anion Gap 3 mmol/L (8-16); Aspartate Amino Transferase 19 U/L (17-59); Bilirubin,Total 0.4 mg/dL (0.2-1.3); Blood Urea Nitrogen 20 mg/dL (9-20); Calcium 9.4 mg/dL (8.4-10.2); Carbon Dioxide 33 mmol/L (22-30); Chloride 96 mmol/L (98-107); Estimated CRCL calculation 56 ml/min; Estimated Glomerular Filt Rate > 60; Glucose 189 mg/dL (65-110); Potassium 4.3 mmol/L (3.4-5.0); Sodium 132 mmol/L (137-145)
[2023-10-18 08:05] LABS: Glucose Point of Care 211 mg/dl (65-105)
[2023-10-18] MEDS: INSULIN ASPART (*BKC) 100 UNITS/ML SUB-Q (08:45)
[2023-10-18] MEDS: ASPIRIN 81 MG CHEWABLE TABLET 324 MG PO (08:45)
[2023-10-18] MEDS: MIDODRINE HCL 2.5 MG TABLET 7.5 MG PO (08:46)
[2023-10-18] MEDS: GABAPENTIN 300 MG CAPSULE PO (08:46)
[2023-10-18] MEDS: MICONAZOLE NITRATE 2% CREAM 30 GM TUBE 1 APPLIC TOPICAL (08:46)
[2023-10-18] MEDS: INSULIN ASPART (*BKC) 100 UNITS/ML 8 UNITS SUB-Q (08:46)
[2023-10-18] MEDS: HEPARIN SODIUM 5,000 UNITS/ML VIAL 5000 UNITS SUB-Q (08:46)
[2023-10-18] MEDS: CITALOPRAM HYDROBROMIDE 20 MG TABLET PO (08:46)
[2023-10-18] MEDS: CYANOCOBALAMIN 500 MCG TABLET PO (08:46)
[2023-10-18] MEDS: CELECOXIB 200 MG CAPSULE PO (08:46)
[2023-10-18] MEDS: PANTOPRAZOLE 40 MG TABLET PO (08:46)
--- NOTE | 2023-10-18 10:02 | PM.DS ---
DS: Admitting Diagnosis Discharge Date October 18, 2023 Admitting Diagnosis Aspiration DS: Discharge Diagnosis Discharge Diagnosis (1) Hyponatremia: Code(s): E87.1 - Hypo-osmolality and hyponatremia Status: Acute (2) Orthostasis: Code(s): I95.1 - Orthostatic hypotension Status: Acute (3) Lower extremity edema: Code(s): R60.0 - Localized edema Status: Acute (4) Dysphagia: Code(s): R13.10 - Dysphagia, unspecified Status: Acute (5) Diabetes mellitus, type II: Qualifiers: Diabetes mellitus mcc insulin use: with termite exterminator helper use Code(s): E11.9 - Type 2 diabetes mellitus without complications Status: Acute (6) Aspiration pneumonia: Code(s): J69.0 - Pneumonitis due to inhalation of food and vomit Status: Acute (7) Hypoxia: Code(s): R09.02 - Hypoxemia Status: Acute (8) Essential (primary) hypertension: Code(s): I10 - Essential (primary) hypertension Status: Acute (9) Severe sepsis: Code(s): A41.9 - Sepsis, unspecified organism; R65.20 - Severe sepsis without septic shock Status: Acute DS: Summary Hospital Course Hospital Course: 83-year-old male with past medical history hypertension, GERD, hyperlipidemia, insulin-dependent diabetes mellitus, diabetic peripheral neuropathy presents from [facility] for altered mental status. Patient vomited in shortly developed adventitious sounds in became altered. Was hypoxic and hypotensive on arrival. Patient was treated for aspiration pneumonia and sepsis. This resolved it is mentation returned to normal baseline. His hypoxia resolved. He was treated with vancomycin Zosyn Augmentin and doxycycline. Speech therapy consulted and the patient is to have easy to chew level 7 diet. He also has hyponatremia although that is chronic. Midodrine has been started and will be prescribed on discharge for hypotension. The patient had some lower extremity edema and venous Dopplers were negative for DVT. On 10/18/2023 the patient is stable for discharge back to [facility] rehab. The patient was amenable to this, understanding of the planned in agreement. Educated on the adverse effects, risk and benefits of medications. The patient had no further concerns. He wished to be DNR during his admission. Time Spent with Patient Time attestation: Total time spent providing and/or coordinating discharge services: Exam Const: General: cooperative and no acute distress Resp: Effort & Inspection: normal respiratory effort Auscultation: clear to auscultation bilaterally Cardio: Rate: regular rate Rhythm: regular rhythm Heart sounds: S1 normal heart sound present and S2 normal heart sound present GI: GI Palp: No abdominal tenderness Auscultation: normal bowel sounds DS: Data Data Completed and Pending Labs on day of discharge: Labs from last 24 hours 10/18/23 10/18/23 10/17/23 07:50 04:32 20:11 WBC 8.1 RBC 3.62 L Hgb 10.1 L Hct 32.6 L MCV 90.1 MCH 27.9 MCHC 31.0 L RDW 13.1 Plt Count 265 MPV 10.3 Immature Gran % (Auto) 0.5 Neut % (Auto) 71.0 Lymph % (Auto) 13.4 L [place] % (Auto) 7.3 Eos % (Auto) 7.3 H Baso % (Auto) 0.5 Lymph # (Auto) 1.08 [place] # (Auto) 0.6 Eos # (Auto) 0.6 H Baso # (Auto) 0.0 Abs Immat Gran (auto) 0.04 H Absolute Neuts (auto) 5.7 Absolute Nucleated RBC 0.0 Nucleated RBC % 0.0 Sodium 132 L Potassium 4.3 Chloride 96 L Carbon Dioxide 33 H Anion Gap 3 L BUN 20 Creatinine 0.90 Estim Creat Clear Calc 56 Estimated GFR > 60 Glucose 189 H POC Capillary Glucose 211 H 82 Calcium 9.4 Total Bilirubin 0.4 AST 19 ALT 9 Alkaline Phosphatase 62 Total Protein 7.0 Albumin 3.5 10/17/23 10/17/23 10/17/23 18:15 16:21 11:36 WBC RBC Hgb Hct MCV MCH MCHC RD
== END 2023-10-18 11:31 | DRG 871 ==
LOC: ANHED 16:09 → ANHIMU 17:45
PROVIDERS: Internal Medicine; Student in an Organized Health Care Education/Training Program; Admitting Provider Internal Medicine; Emergency Provider Emergency Medicine; Visit Provider General Practice
DX: A41.9 Sepsis, unspecified organism (principal); J69.0 Pneumonitis due to inhalation of food and vomit; J96.01 Acute respiratory failure with hypoxia; E87.1 Hypo-osmolality and hyponatremia; R65.20 Severe sepsis without septic shock; E11.65 Type 2 diabetes mellitus with hyperglycemia; E11.42 Type 2 diabetes mellitus with diabetic polyneuropathy; E78.5 Hyperlipidemia, unspecified; F41.9 Anxiety disorder, unspecified; I10 Essential (primary) hypertension; I95.1 Orthostatic hypotension; K21.9 Gastro-esophageal reflux disease without esophagitis; M19.90 Unspecified osteoarthritis, unspecified site; R60.9 Edema, unspecified; Z66 Do not resuscitate; Z79.4 Long term (current) use of insulin; Z79.82 Long term (current) use of aspirin; Z98.41 Cataract extraction status, right eye; Z98.42 Cataract extraction status, left eye; Z87.891 Personal history of nicotine dependence
CPT/HCPCS: 36415; 36600; 70450; 71045; 80053; 80202; 81001; 82375; 82565; 82805; 82948; 83036; 83050; 83605; 83735; 84100; 85025; 85610; 85730; 87040; 87641; 92610; 93005; 93306; 93970; 94640; 96361; 96365; 96367; 96375; 97110; 97116; 97161; 97166; 97530; 97535; 99285; A9270; C9113; J1644; J1815; J1940; J2270; J2543; J3370; J7030; J7040

== ENCOUNTER 2023-10-25 10:04 | Emergency (ER) | payer MEDICARE, OTHER, SELFPAY ==
[2023-10-25] VITALS (46 sets, daily range): BP systolic 91–130; BP diastolic 58–85; PULSE 79–88; RESP 12–21; TEMP 36.4–36.9; O2SAT 93–100
--- NOTE | ~2023-10-25 | XR_ITS ---
Clinical Indication: Hypotension PA and lateral views of the chest: Comparison: 10/09/2023 Findings: The lungs are clear, without evidence of focal consolidation or pleural effusion. Cardiome diastinal silhouette is within normal limits. Bones and soft tissues are unremarkable. Impression: Normal chest. Reviewed, dictated and finalized at location . Impression: Normal chest.
--- NOTE | 2023-10-25 10:08 | ECG_ITS ---
Measurements Intervals [place] Rate: 82 P: 49 AL: 178 QRS: -3 QRSD: 93 T: 57 QT: 395 QTc: 462 Interpretive Statements SINUS RHYTHM POSSIBLE LEFT ATRIAL ENLARGEMENT INCOMPLETE RIGHT BUNDLE BRANCH BLOCK ANTEROSEPTAL INFARCT, AGE INDETERMINATE CONSIDER INFERIOR INFARCT, AGE INDETERMINATE ABNORMAL ECG COMPARED TO ECG 10/09/2023 14:20:10 INCOMPLETE RIGHT BUNDLE-BRANCH BLOCK NOW PRESENT MYOCARDIAL INFARCT FINDING NOW PRESENT Electronically Signed On 10-25-2023 10:40:40 CDT by Rasta Knox D.O.
--- NOTE | 2023-10-25 10:43 | ED.GENADULT ---
HPI - General Adult General Chief complaint: Recheck/Abnormal Lab/Rx Stated complaint: hypotensive Time Seen by Provider: 10/25/23 10:11 History of Present Illness HPI narrative: 83-year-old male presenting to the emergency department for evaluation of some low blood pressures at the care facility. Patient states when he is resting in bed he does not necessarily have onset of lightheadedness but with PT and with ambulation he has onset of the symptoms. Patient was not feeling well this morning the custodial checked his blood pressure hernia blood pressure of 65 systolic Related Data Home Medications Medication Instructions Recorded Confirmed aspirin 81 mg chewable tablet 325 mg PO DAILY 07/02/19 10/09/23 insulin glargine 100 unit/mL 30 unit subcut HS 04/02/20 10/09/23 subcutaneous solution (Lantus U-100 Insulin) acetaminophen 650 mg 650 mg PO Q4H PRN pain 10/09/23 10/09/23 tablet,extended release alprazolam 1 mg tablet 1 mg PO Q6H PRN Anxiety 10/09/23 10/09/23 citalopram 20 mg tablet 20 mg PO DAILY 10/09/23 10/09/23 cyanocobalamin (vitamin B-12) 100 100 mcg PO DAILY 10/09/23 10/09/23 mcg tablet cyclobenzaprine 10 mg tablet 10 mg PO Q8H PRN Muscle Spasm 10/09/23 10/09/23 gabapentin 300 mg capsule 300 mg PO BID 10/09/23 10/09/23 hydrocodone 5 mg-acetaminophen 325 1 tablet PO Q4H PRN Moderate Pain 10/09/23 10/09/23 mg tablet (Scale Score 5-6) hydrocodone 5 mg-acetaminophen 325 2 tablet PO Q6H PRN Severe pain 10/09/23 10/09/23 mg tablet 7-10 insulin lispro 100 unit/mL 8 unit subcut TIDWMEAL 10/09/23 10/09/23 subcutaneous pen omeprazole 40 mg capsule,delayed 40 mg PO DAILY 10/09/23 10/09/23 release polyethylene glycol 3350 17 gram 17 g PO DAILY PRN Constipation 10/09/23 10/09/23 oral powder packet (Miralax) sennosides 8.6 mg tablet (senna) 8.6 mg PO HS 10/09/23 10/09/23 Allergies Allergy/AdvReac Type Severity Reaction Status Date / Time grass pollen Allergy Mild Nasal Verified 10/25/23 10:21 Discharge Review of Systems Review of Systems: All systems reviewed & are unremarkable except as noted in HPI and below PMFSH Past Medical History Medical History (Updated 10/26/23 @ 00:02 by Jesus Adames) Apnea Diabetes mellitus, type II Treated as type 1 Diabetic peripheral neuropathy Essential hypertension Not currently on medications GERD (gastroesophageal reflux disease) Hypercholesteremia Surgical History Surgical History H/O bilateral cataract extraction Hx of tonsillectomy Family History Family History Father Lymphoma Mother Diabetes mellitus Social History Social History Smoking status: Former smoker Alcohol intake: never Alcohol use details: He drinks an occasional glass a wine with dinner about once a month. Substance use: never Substance use type: does not use Living arrangements: with family Additional living arrangements comments: he lives with his of 40 years in [facility]. He has 2 adult children who are healthy. 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 He served during [employer]. 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 Spiritual care concerns: No Exam Narrative: APPEARANCE: Well appearing, no pain, no distress, well-nourished. HEAD: normocephalic, atraumatic. EYES: PERRLA/EOMI, conjunctivae clear. NOSE: Normal no drainage EARS:TMS clear with good light reflex. THROAT: Pharynx clear, no exudate. NECK: Supple. No adenopathy, no masses. RESPIRATORY: Airway patent, respirations nonlabored. Clear to auscultation bilaterally, no rales, rhonchi, wheezing. CARDIOVASCULAR: Regular rate and rhythm without murmurs rubs or gallops. ABDOMINAL: Soft, nontender, nondistended,
[2023-10-25 11:00] LABS: Basophils Percent Auto 0.5 % (0.2-1.2); Eosinophils Absolute Auto 0.2 K/mm3 (0-0.3); Eosinophils Percent Auto 2.4 % (0-4.4); Hematocrit 36.4 % (42.0-52.0); Hemoglobin 11.5 g/dL (14.0-18.0); Immature Granulocyte Absolute 0.04 K/mm3 (0.00-0.031); Immature Granulocyte Percent A 0.5 % (0-0.5); Lymphocytes Absolute Auto 1.01 K/mm3 (0.9-3.2); Lymphocytes Percent Auto 11.9 % (18.3-44.2); Mean Corpuscular HGB Conc 31.6 g/dl (32-36); Mean Corpuscular Hemoglobin 27.6 pg (26-34); Mean Corpuscular Volume 87.5 fl (80-100); Mean Platelet Volume 10.7 fl (7.4-10.4); Monocytes Absolute Auto 0.8 K/mm3 (0.1-0.6); Monocytes Percent Auto 9.8 % (2.6-8.5); Neutrophils Absolute Auto 6.4 K/mm3 (1.3-6.7); Neutrophils Percent Auto 74.9 % (45.5-73.1); Platelet Count Result 240 k/mm3 (150-375); Red Blood Count 4.16 M/mm3 (4.6-6.20); Red Cell Distribution Width 13.2 % (11.5-14.5); White Blood Count 8.5 K/mm3 (4.5-10.0)
[2023-10-25 11:10] LABS: Alanine Aminotransferase 11 U/L (6-50); Alkaline Phosphatase 63 U/L (38-126); Anion Gap 5 mmol/L (8-16); Aspartate Amino Transferase 23 U/L (17-59); Bilirubin,Total 0.7 mg/dL (0.2-1.3); Blood Urea Nitrogen 19 mg/dL (9-20); Calcium 9.5 mg/dL (8.4-10.2); Carbon Dioxide 30 mmol/L (22-30); Chloride 96 mmol/L (98-107); Estimated CRCL calculation 56 ml/min; Estimated Glomerular Filt Rate > 60; Glucose 151 mg/dL (65-110); Potassium 4.7 mmol/L (3.4-5.0); Sodium 131 mmol/L (137-145)
[2023-10-25] MEDS: MIDODRINE HCL 10 MG TABLET PO (12:57)
[2023-10-25] MEDS: HYDROcodone/acetaminophen (*CRX) 5-325 MG TABLET 1 TAB PO (13:02)
== END 2023-10-25 15:05 ==
PROVIDERS: Emergency Provider Emergency Medicine
DX: I95.9 Hypotension, unspecified (principal); E11.42 Type 2 diabetes mellitus with diabetic polyneuropathy; E78.00 Pure hypercholesterolemia, unspecified; K21.9 Gastro-esophageal reflux disease without esophagitis; Z87.891 Personal history of nicotine dependence; Z79.82 Long term (current) use of aspirin; Z79.4 Long term (current) use of insulin; I45.10 Unspecified right bundle-branch block; R94.31 Abnormal electrocardiogram [ECG] [EKG]
CPT/HCPCS: 36415; 71046; 80053; 85025; 93005; 99283; A9270

== ENCOUNTER 2023-12-03 09:33 | Inpatient (IN) | payer MEDICARE, OTHER, SELFPAY ==
[2023-12-03] VITALS (13 sets, daily range): BP systolic 88–185; BP diastolic 48–91; PULSE 82–98; RESP 12–20; TEMP 36.1–36.3; O2SAT 95–100; BMI 25.5
--- NOTE | ~2023-12-03 | CT_ITS ---
EXAMINATION: CTA brain carotid DATE: 12/03/2023 12:10 INDICATION: syncope TECHNIQUE: Computed tomographic angiography (CTA) of the head was performed without and with 100 mL O mnipaque-350 intravenous contrast. CTA of the neck was performed with intravenous contrast. Automated exposure control and iterative reconstruction technique were employed. The dose-length product was 1 614.20 mGy-cm. Maximum intensity projection and volume rendered 3D-reconstructions were created by nick fong technologist on a separate workstation. COMPARISON: 10/09/2023. FINDINGS: CT BRAIN: No acute large vessel infarct, intracranial hemorrhage, mass, or hydrocephalus. Mild atrophy and wage and salary administrator carol white matter change. Atherosclerotic intracranial calcification. Small old left temporal infarct. Focal old lacunar infarcts in the left thalamus and right insular white matter. Small focus of andrez ar necrosis in the right parietal lobe near the vertex. Bilateral lens replacements. Mild bilateral i nferior maxillary and left sphenoid sinus mucosal thickening, aerated secretions in the right sphenoi d, the remaining aerated spaces are clear. CTA HEAD: No large vessel occlusion, aneurysm, high flow vascular malformation, nidus or extravasation. Patent cerebral veins. Symmetric parenchymal enhancement CTA NECK: Aortic arch and proximal great vessels: Minimal arch calcification. Left vertebral artery origin off the arch. Right common carotid, carotid bifurcation, and internal carotid artery: Minimal calcified plaque at t he bifurcation.There is 0% stenosis of the proximal right internal carotid artery relative to normal distal artery lumen diameter (NASCET criteria). Left common carotid, carotid bifurcation, and internal carotid artery: No plaque.There is 0% stenosis of the proximal left internal carotid artery relative to normal distal artery lumen diameter (NASCET criteria). Vertebral arteries: No significant plaque or stenosis. Right vertebral artery is dominant, Other findings: 3.0 cm right thyroid nodule. IMPRESSION: No acute intracranial process. No large vessel intracranial occlusion, high-grade intracranial stenosis, or aneurysm. No carotid or vertebral artery occlusion, dissection, or significant stenosis. 3 cm right thyroid nodule, consider nonemergent outpatient thyroid ultrasound for further characteriz ation. Reviewed, dictated and finalized at location K. IMPRESSION: No acute intracranial process. No large vessel intracranial occlusion, high-grade intracranial stenosis, or an eurysm. No carotid or vertebral artery occlusion, dissection, or significant stenosis. 3 cm right thyroid nodule, consider nonemergent outpatient thyroid ultrasound f or further characterization.
--- NOTE | ~2023-12-03 | CT_ITS ---
EXAMINATION: CTA chest PE protocol DATE: 12/03/2023 15:11 INDICATION: d dimer, syncope TECHNIQUE: Computed tomography angiography (CTA) of the chest was performed with 100 mL Omnipaque-350 intravenous contrast timed to evaluate the pulmonary arteries. Coronal maximum intensity projection 3D-reconstructions were created by the technologist. The dose-length product (DLP) was 567.16 mGy-cm. Automated exposure control and iterative reconstruction technique were employed. COMPARISON: 12/09/2023, report only. FINDINGS: Lung parenchyma and airways: Minimal tree-in-bud opacities in the peripheral right middle and right l ower lobes. Mild dependent bibasilar scar/atelectasis. Pleura: Unremarkable. Thoracic inlet, axillae and chest wall: 3 cm right thyroid lobe nodule. Thoracic aorta: No significant dilation. No dissection. Left vertebral artery origin off the arch. Mediastinum: Normal. Heart and pericardium: Normal. Coronary artery calcifications: Moderate. Upper abdomen: Dilated gallbladder with gallstones. Bones: No acute osseous finding. Pulmonary arteries: Study quality: Adequate. No pulmonary emboli detected. IMPRESSION: No CT evidence of acute pulmonary embolus. Mild right mid lobe and lower lobe tree-in-bud opacities may represent atypical infection. The bladder hydrops with gallstones, may be secondary to fasting or obstruction, if there are biliary laboratory abnormalities right upper quadrant pain, consider right upper quadrant ultrasound. 3 cm right thyroid nodule, consider nonemergent outpatient thyroid ultrasound. Reviewed, dictated and finalized at [facility]. IMPRESSION: No CT evidence of acute pulmonary embolus. Mild right mid lobe and lower lobe tree-in-bud opacities may represent atypical infection. The bladder hydrops with gallstones, may be secondary to fasting or obstruction , if there are biliary laboratory abnormalities right upper quadrant pain, cons ider right upper quadrant ultrasound. 3 cm right thyroid nodule, consider nonemergent outpatient thyroid ultrasound.
--- NOTE | 2023-12-03 09:50 | ED.DIZZY ---
HPI - Dizziness General Chief Complaint: Syncope Stated Complaint: AMS History of Present Illness HPI Narrative: 83-year-old male with history of CVA, insulin-dependent diabetes, GERD that is currently comfort care presented to the emergency department for evaluation after having a syncopal episode at the snf. When EMS arrived patient was hypotensive with blood pressure in the 80s. Upon arrival emergency department patient's blood pressure is improved patient's mental status improved as well. Patient states he feels tired but denies any complaints. Patient was at a rehab facility until this morning due to a recent hip replacement. Patient states that his Medicare ran outside patient was checked out of the facility this morning. is unsure if she is able to care for him at home and does not have home health services set up. Related Data Home Medications Medication Instructions Recorded Confirmed aspirin 81 mg chewable tablet 325 mg PO DAILY 07/02/19 12/03/23 insulin glargine 100 unit/mL 30 unit subcut HS 04/02/20 12/03/23 subcutaneous solution (Lantus U-100 Insulin) alprazolam 1 mg tablet 1 mg PO Q6H PRN Anxiety 10/09/23 12/03/23 citalopram 20 mg tablet 20 mg PO DAILY 10/09/23 12/03/23 cyanocobalamin (vitamin B-12) 100 100 mcg PO DAILY 10/09/23 12/03/23 mcg tablet gabapentin 300 mg capsule 300 mg PO BID 10/09/23 12/03/23 hydrocodone 5 mg-acetaminophen 325 1 tablet PO Q4H PRN Moderate Pain 10/09/23 12/03/23 mg tablet (Scale Score 5-6) insulin lispro 100 unit/mL 8 unit subcut TIDWMEAL 10/09/23 12/03/23 subcutaneous pen omeprazole 40 mg capsule,delayed 40 mg PO DAILY 10/09/23 12/03/23 release polyethylene glycol 3350 17 gram 17 g PO DAILY PRN Constipation 10/09/23 12/03/23 oral powder packet (Miralax) sennosides 8.6 mg tablet (senna) 8.6 mg PO HS 10/09/23 12/03/23 Allergies Allergy/AdvReac Type Severity Reaction Status Date / Time grass pollen Allergy Mild Nasal Verified 10/25/23 10:21 Discharge Review of Systems Review of Systems: All systems reviewed & are unremarkable except as noted in HPI and below PMFSH Past Medical History Medical History (Updated 12/03/23 @ 19:05 by Pj Wilhelm MD) Apnea Diabetic peripheral neuropathy Essential hypertension Not currently on medications Gastroesophageal reflux disease Hypercholesteremia Type 2 diabetes mellitus Surgical History Surgical History (Updated 12/03/23 @ 17:48 by Imelda Zimmer PA-C) History of bilateral cataract extraction History of tonsillectomy Family History Family History Father Lymphoma Mother Diabetes mellitus Social History Social History (Updated 12/03/23 @ 17:49 by Imelda Zimmer PA-C) Social History: Surrogate medical decision maker: Tisha Galiciasheilacampbell, spouse. Code status: Do not resuscitate. Smoking status: Never smoker Alcohol intake: never Alcohol use details: He drinks an occasional glass a wine with dinner about once a month. Substance use: never Substance use type: does not use Do You Feel Safe in your Home?: Yes Lack of Transportation: No Lack of Food: Never True Current Housing: I Have Housing Concerned About Future Housing: No Difficulty Paying Gas/Electric Bills: No Difficulty Paying for Meds: No Currently Unemployed: No Education: High School Diploma/GED Difficulty w/ Childcare or Family Care: No Living arrangements: with family Additional living arrangements comments: Lives with his of 40 years in [facility]. They have 2 adult children. 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 Gender identity (if verbalized by the patient): Male Sexual Orientation (if Verbalized by the Patient): Straight or Heterosexual Spiritual care concerns: No Exa
--- NOTE | 2023-12-03 10:12 | PC.NURSE ---
notified by [facility] that pt was to be discharged from their facility today. states pts came up to facility and signed his discharge paperwork s/p knowing pt was sent to this ed for evaluation.
[2023-12-03 11:34] LABS: Basophils Percent Auto 0.5 % (0.2-1.2); Eosinophils Absolute Auto 0.1 K/mm3 (0-0.3); Eosinophils Percent Auto 1.3 % (0-4.4); Hemoglobin 12.5 g/dL (14.0-18.0); Immature Granulocyte Absolute 0.02 K/mm3 (0.00-0.031); Immature Granulocyte Percent A 0.3 % (0-0.5); Lymphocytes Absolute Auto 0.91 K/mm3 (0.9-3.2); Lymphocytes Percent Auto 14.9 % (18.3-44.2); Mean Corpuscular HGB Conc 31.3 g/dl (32-36); Mean Corpuscular Hemoglobin 27.2 pg (26-34); Mean Corpuscular Volume 87.1 fl (80-100); Mean Platelet Volume 11.4 fl (7.4-10.4); Monocytes Absolute Auto 0.5 K/mm3 (0.1-0.6); Monocytes Percent Auto 7.4 % (2.6-8.5); Neutrophils Absolute Auto 4.6 K/mm3 (1.3-6.7); Neutrophils Percent Auto 75.6 % (45.5-73.1); Platelet Count Result 202 k/mm3 (150-375); Red Blood Count 4.59 M/mm3 (4.6-6.20); Red Cell Distribution Width 13.3 % (11.5-14.5); White Blood Count 6.1 K/mm3 (4.5-10.0)
[2023-12-03 11:36] LABS: Alanine Aminotransferase 12 U/L (6-50); Albumin Level 4.7 g/dL (3.5-5.1); Alkaline Phosphatase 85 U/L (38-126); Anion Gap 8 mmol/L (4-12); Aspartate Amino Transferase 17 U/L (17-59); Bilirubin,Total 0.7 mg/dL (0.2-1.3); Blood Urea Nitrogen 25 mg/dL (9-20); Calcium 10.6 mg/dL (8.4-10.2); Carbon Dioxide 33 mmol/L (22-30); Chloride 98 mmol/L (98-107); Estimated CRCL calculation 48 ml/min; Estimated Glomerular Filt Rate > 60; Glucose 192 mg/dL (65-110); Sodium 139 mmol/L (137-145)
[2023-12-03 11:37] LABS: Lactic Acid Reflex 1.6 mmol/L (0.7-2.0)
[2023-12-03 11:44] LABS: NT Pro B Type Natriuretic Pept 181 pg/mL (19.9-100)
[2023-12-03 12:02] LABS: Influenza A QL RT-PCR Negative (Negative); Influenza B QL RT-PCR Negative (Negative); RSV RNA, RT-PCR Negative (Negative); SARS-CoV-2 RNA PCR Negative (Negative)
[2023-12-03 12:33] LABS: Appearance Urine Clear (Clear); Bacteria Urine None Seen /hpf; Bilirubin Urine Negative (Negative); Blood Urine Negative (Negative); Color Urine Yellow (Yellow); Glucose Urine UA 3+ mg/dL (Negative); Ketones Urine 1+ mg/dL (Negative); Leukocyte Esterase Ur Negative LEU/UL (Negative); Nitrate Urine Negative (Negative); Protein Urine Trace mg/dL (Negative); RBC Urine 0-2 /hpf (0-2); Squamous Epithelial Cell Urine None Seen /hpf (Few); WBC Urine 0-5 /hpf (0-3); pH Urine 6.5 (5.0-9.0)
[2023-12-03 12:40] LABS: Add Urine Microscopic? YES; Specific Grav Ur 1.035 (1.001-1.035)
--- NOTE | 2023-12-03 13:53 | PC.NURSE ---
Orthostatic blood pressures obtained. Pt c/o dizziness and noted to have visible swaying. Ambulation not performed due to safety risk. made aware.
[2023-12-03] MEDS: SODIUM CHLORIDE 0.9% IV 1,000 ML 500 ML IV CONT (13:58)
[2023-12-03 14:01] LABS: INR 0.9; Prothrombin Time 12.2 Seconds (11.1-14.7)
[2023-12-03 14:11] LABS: Partial Thromboplastin Time 27.4 Seconds (22.3-36.8)
[2023-12-03 14:15] LABS: D Dimer 0.93 ug/mL (<0.48)
--- NOTE | 2023-12-03 14:20 | PM.IMHP ---
H&P: HPI History of Present Illness Date/Time: 12/03/23 16:00 Chief Complaint: Syncope. Narrative: This is an 83-year-old male with history of stroke, insulin-dependent diabetes, hypertension, hyperlipidemia, and gastroesophageal reflux disease who presented to the emergency department via EMS from [facility] for evaluation after syncopal episode. The patient provides the following history. He is at that facility for rehab following hospitalization in mid October 2023 with aspiration pneumonia, hyponatremia, and orthostatic hypotension. He was started on midodrine during that stay and has continued on that medication to my knowledge. Today there were plans to discharge the patient back home. Not long prior to arrival he went from a sitting to standing position and had a brief episode of unresponsiveness. Staff were nearby and it does not sound as though he sustained a fall. Blood pressure once he came to was 88/60. With further questioning he endorses frequent episodes of dizziness and lightheadedness with position changes which has been going on for quite some time. He denies headache, vertigo, cold and flu symptoms, chest and pleuritic pain, shortness of breath, cough, abdominal pain, nausea, vomiting, diarrhea, and dysuria. In the ED: Blood pressure was 146/85 on arrival however he has orthostatic with a drop in blood pressure to 88/48 upon standing. Labs were significant for WBC count of 6.1, hemoglobin 12.5, D-dimer 0.93, BUN 25, creatinine 1.10, glucose 249, lactic acid 1.6, calcium 10.6, proBNP 181. CTA of the head and neck showed no acute intracranial process, no large vessel intracranial occlusion, high-grade stenosis, or aneurysm. 3 cm right thyroid nodule was noted. He was given a 500 mL normal saline bolus and 7.5 mg midodrine which he takes at home and he is being admitted in this setting for further evaluation and monitoring. Review of Systems Review of Systems: 12 systems were reviewed and are negative except for as per HPI. [facility] Past Medical History Medical History (Updated 12/03/23 @ 22:12 by Imelda Zimmer PA-C) Apnea Diabetic peripheral neuropathy Essential hypertension Not currently on medications Gastroesophageal reflux disease Hypercholesteremia Type 2 diabetes mellitus Surgical History Surgical History (Updated 12/03/23 @ 17:48 by Imelda G Gerling, PA-C) History of bilateral cataract extraction History of tonsillectomy Family History Family History Father Lymphoma Mother Diabetes mellitus Social History Social History (Updated 12/03/23 @ 18:55 by Imelda Zimmer PA-C) Social History: Surrogate medical decision maker: Tisha Galiciasheilacampbell, spouse. Code status: Do not resuscitate. Smoking status: Never smoker Alcohol intake: never Alcohol use details: He drinks an occasional glass a wine with dinner about once a month. Substance use: never Substance use type: does not use Do You Feel Safe in your Home?: Yes Lack of Transportation: No Lack of Food: Never True Current Housing: I Have Housing Concerned About Future Housing: No Difficulty Paying Gas/Electric Bills: No Difficulty Paying for Meds: No Currently Unemployed: No Education: High School Diploma/GED Difficulty w/ Childcare or Family Care: No Living arrangements: with family Additional living arrangements comments: Lives with his of 40 years in [facility]. They have 2 adult children. 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 Gender identity (if verbalized by the patient): Male Sexual Orientation (if Verbalized by the Patient): Straight or Heterosexual Spiritual care concerns: No Meds Home Medications and Allergies Home Medications Medication Instructions Recorded Confirmed Type
[2023-12-03] MEDS: MIDODRINE HCL 2.5 MG TABLET 7.5 MG PO (14:32)
--- NOTE | 2023-12-03 15:55 | PC.NURSE ---
This patient, Oswaldo Espinosa, was admitted to [facility] Room 303-01. Patient/family oriented to hospital policies and general routines including ID bracelet, bed and alarms, visiting hours, pain management, procedures, bathroom and other care routines, personal items, smoking policy, room service/diet, and visiting hours. Information on how to activate the Rapid Response Team has been discussed. Patient/Family are encouraged to report perceived risks to care and to ask questions if they do not understand what they are told or what they should do.
[2023-12-03 16:32] LABS: Glucose Point of Care 249 mg/dl (65-105)
[2023-12-03 19:42] LABS: Glucose Point of Care 396 mg/dl (65-105)
[2023-12-03] MEDS: SENNOSIDES 8.6 MG TABLET PO (20:43)
[2023-12-03] MEDS: GABAPENTIN 300 MG CAPSULE PO (20:43)
[2023-12-03] MEDS: INSULIN GLARGINE (*BKC) 100 UNITS/ML 30 UNITS SUB-Q (20:44)
[2023-12-03] MEDS: INSULIN ASPART (*BKC) 100 UNITS/ML SUB-Q (20:46)
[2023-12-04] VITALS: PULSE 91
[2023-12-04 00:35] LABS: Glucose Point of Care 299 mg/dl (65-105)
[2023-12-04] MEDS: INSULIN ASPART (*BKC) 100 UNITS/ML SUB-Q ×4 (00:56→21:29)
[2023-12-04 04:00] VITALS: PULSE 84
[2023-12-04 05:55] VITALS: BP 167/90; PULSE 95; RESP 14; TEMP 36.5; O2SAT 98
[2023-12-04 06:07] LABS: Glucose Point of Care 233 mg/dl (65-105)
[2023-12-04 06:49] LABS: Hematocrit 40.1 % (42.0-52.0); Hemoglobin 12.2 g/dL (14.0-18.0); Mean Corpuscular HGB Conc 30.4 g/dl (32-36); Mean Corpuscular Hemoglobin 26.6 pg (26-34); Mean Corpuscular Volume 87.4 fl (80-100); Mean Platelet Volume 11.5 fl (7.4-10.4); Platelet Count Result 229 k/mm3 (150-375); Red Blood Count 4.59 M/mm3 (4.6-6.20); Red Cell Distribution Width 13.2 % (11.5-14.5)
[2023-12-04 06:59] LABS: Anion Gap 10 mmol/L (4-12); Blood Urea Nitrogen 21 mg/dL (9-20); Calcium 10.2 mg/dL (8.4-10.2); Carbon Dioxide 29 mmol/L (22-30); Chloride 97 mmol/L (98-107); Estimated CRCL calculation 63 ml/min; Estimated Glomerular Filt Rate > 60; Glucose 246 mg/dL (65-110); Magnesium 1.9 mg/dL (1.6-2.3); Potassium 3.6 mmol/L (3.4-5.0); Sodium 136 mmol/L (137-145)
[2023-12-04 07:35] LABS: Glucose Point of Care 304 mg/dl (65-105)
[2023-12-04] MEDS: MIDODRINE HCL 2.5 MG TABLET 7.5 MG PO ×3 (08:28→17:15)
[2023-12-04] MEDS: ASPIRIN 81 MG CHEWABLE TABLET 325 MG PO (08:29)
[2023-12-04] MEDS: GABAPENTIN 300 MG CAPSULE PO ×2 (08:29→21:27)
[2023-12-04] MEDS: CITALOPRAM HYDROBROMIDE 20 MG TABLET PO (08:29)
[2023-12-04] MEDS: PANTOPRAZOLE 40 MG TABLET PO ×2 (08:29→21:27)
[2023-12-04] MEDS: INSULIN ASPART (*BKC) 100 UNITS/ML 8 UNITS SUB-Q ×2 (08:32→12:01)
--- NOTE | 2023-12-04 08:45 | PM.IMPN ---
Progress Note: A&P Assessment and Plan (1) Syncope: Code(s): R55 - Syncope and collapse Status: Acute Assessment and Plan: -continue telemetry monitoring -check echo in the a.m. -EKG p.r.n. if patient complains of chest pain or syncopal episode occurs -continue monitor vitals q.4 hours (2) Orthostatic hypotension: Code(s): I95.1 - Orthostatic hypotension Status: Acute Assessment and Plan: -check orthostatic vitals daily -initiate fall precautions -midodrine 7.5 mg t.i.d. p.o. -monitor I&O (3) Type 2 diabetes mellitus: Code(s): E11.9 - Type 2 diabetes mellitus without complications Status: Acute Assessment and Plan: On 10/10/2023 last A1c was 10.9 -continue home insulin glargine 30 units subQ HS -Insulin aspart 8 units subQ t.i.d. WM -initiate hyperglycemic protocol -Initiate hypoglycemic per (4) Right thyroid nodule: Code(s): E04.1 - Nontoxic single thyroid nodule Status: Acute Assessment and Plan: -Head and neck CT showed a 3 cm right thyroid nodule which can be worked up as an outpatient. Plan Continue home medications: Reconciled VTE Prophylaxis: SCDs DIET: Diabetic Anticipated hospital stay: Observation Code Status: DNR Subjective Date/time seen: 12/04/23 08:45 Interval history: pt seen this morning, in no acute distress, denies any overnight events. Pt from [facility], he is a/o x 3, he is able to give hx about his fall at [facility] home.labs reviewed, Chest CTA suggest mild right mid lobe and lower lobe tree-in-bud opacities may represent atypical infection. WBC 6.0 Review of Systems Review of Systems: 12 systems were reviewed and are negative except for as per HPI. Exam Narrative: General: Chronically ill-appearing male in the semi-Marshall position in bed. Weight: 70.4 kg. BMI: 25.5. HEENT: Patient is legally blind. Tacky mucous membranes. Neck: Supple. No obvious bruits. Respiratory: Lungs are clear to auscultation bilaterally. Cardiovascular: Regular rate and rhythm with S1-S2. No significant murmurs. Gastrointestinal: Abdomen is soft, nontender, and nondistended with positive bowel sounds. No guarding or rebound tenderness. Skin: Warm and dry. Generalized pallor. Extremities: No cyanosis, clubbing, or significant edema. Radial and pedal pulses intact. Neurological: Alert. Cranial nerves 2-12 are grossly intact. Generalized weakness without gross focal deficits. Psychiatric: Cooperative with appropriate mood and flat affect. Objective Data Vital Signs Vital Signs: Vital Signs - 24 hr 12/03/23 09:35 12/03/23 12:25 12/03/23 13:30 Temperature 97.0 F L Pulse Rate 82 90 82 Respiratory Rate 16 17 20 Blood Pressure 146/85 H 150/77 H 152/82 H Pulse Oximetry 97 100 98 Oxygen Delivery Room Air Oxygen Flow Rate 12/03/23 13:35 12/03/23 13:36 12/03/23 13:48 Temperature Pulse Rate 85 89 90 Respiratory Rate Blood Pressure 150/85 H 96/61 L 88/48 L Pulse Oximetry Oxygen Delivery Oxygen Flow Rate 12/03/23 12:26 12/03/23 14:01 12/03/23 14:31 Temperature Pulse Rate 88 82 85 Respiratory Rate 14 12 18 Blood Pressure 150/77 H 132/76 130/71 Pulse Oximetry 100 100 99 Oxygen Delivery Oxygen Flow Rate 12/03/23 15:52 12/03/23 17:27 12/03/23 19:55 Temperature 97.3 F L 97.2 F L Pulse Rate 92 98 Respiratory Rate 18 16 Blood Pressure 185/91 H 158/78 H Pulse Oximetry 100 95 98 Oxygen Delivery Nasal Cannula Oxygen Flow Rate 1 12/03/23 20:00 12/03/23 20:00 12/04/23 00:00 Temperature Pulse Rate 95 91 Respiratory Rate Blood Pressure Pulse Oximetry 98 Oxygen Delivery Room Air Oxygen Flow Rate 12/04/23 04:00 12/04/23 05:55 Temperature 97.7 F Pulse Rate 84 95 Respiratory Rate 14 Blood Pressure 167/90 H Pulse Oximetry 98 Oxygen Delivery Oxygen Flow Rate Intake/Output Intake/Output: Intake & Output 11/07
[2023-12-04 10:16] VITALS: O2SAT 96
[2023-12-04 11:18] LABS: Glucose Point of Care 303 mg/dl (65-105)
[2023-12-04 13:59] VITALS: BP 113/60; PULSE 87; RESP 14; TEMP 35.7; O2SAT 100
[2023-12-04 16:22] LABS: Glucose Point of Care 132 mg/dl (65-105)
--- NOTE | 2023-12-04 16:53 | PC.NURSE ---
This RN spoke with Allegra Childress NP regarding pt's dinner BG of 132. This RN instructed to hold dinner Novolog 8 units and that pt should still get nighttime Lantus 30 units.
[2023-12-04 20:18] LABS: Glucose Point of Care 262 mg/dl (65-105)
[2023-12-04 20:38] VITALS: BP 154/80; PULSE 85; RESP 18; TEMP 36.6; O2SAT 98
[2023-12-04] MEDS: INSULIN GLARGINE (*BKC) 100 UNITS/ML 30 UNITS SUB-Q (21:27)
[2023-12-04] MEDS: SENNOSIDES 8.6 MG TABLET PO (21:27)
[2023-12-05] VITALS (16 sets, daily range): BP systolic 73–125; BP diastolic 36–70; PULSE 78–90; RESP 12–18; TEMP 35.7–36.6; O2SAT 96–99
[2023-12-05 07:01] LABS: Basophils Percent Auto 0.7 % (0.2-1.2); Eosinophils Absolute Auto 0.2 K/mm3 (0-0.3); Eosinophils Percent Auto 3.1 % (0-4.4); Hematocrit 40.7 % (42.0-52.0); Hemoglobin 12.5 g/dL (14.0-18.0); Immature Granulocyte Absolute 0.02 K/mm3 (0.00-0.031); Immature Granulocyte Percent A 0.3 % (0-0.5); Lymphocytes Absolute Auto 1.44 K/mm3 (0.9-3.2); Lymphocytes Percent Auto 24.9 % (18.3-44.2); Mean Corpuscular HGB Conc 30.7 g/dl (32-36); Mean Corpuscular Hemoglobin 26.7 pg (26-34); Mean Corpuscular Volume 86.8 fl (80-100); Mean Platelet Volume 11.6 fl (7.4-10.4); Monocytes Absolute Auto 0.6 K/mm3 (0.1-0.6); Monocytes Percent Auto 9.5 % (2.6-8.5); Neutrophils Absolute Auto 3.6 K/mm3 (1.3-6.7); Neutrophils Percent Auto 61.5 % (45.5-73.1); Platelet Count Result 214 k/mm3 (150-375); Red Blood Count 4.69 M/mm3 (4.6-6.20); Red Cell Distribution Width 13.2 % (11.5-14.5); White Blood Count 5.8 K/mm3 (4.5-10.0)
[2023-12-05 07:18] LABS: Anion Gap 7 mmol/L (4-12); Blood Urea Nitrogen 17 mg/dL (9-20); Calcium 9.7 mg/dL (8.4-10.2); Carbon Dioxide 30 mmol/L (22-30); Chloride 96 mmol/L (98-107); Estimated CRCL calculation 56 ml/min; Estimated Glomerular Filt Rate > 60; Glucose 199 mg/dL (65-110); Potassium 3.4 mmol/L (3.4-5.0); Sodium 133 mmol/L (137-145)
[2023-12-05] MEDS: CITALOPRAM HYDROBROMIDE 20 MG TABLET PO (07:57)
[2023-12-05] MEDS: MIDODRINE HCL 2.5 MG TABLET 7.5 MG PO ×3 (07:57→17:16)
[2023-12-05] MEDS: PANTOPRAZOLE 40 MG TABLET PO ×2 (07:57→19:59)
[2023-12-05] MEDS: GABAPENTIN 300 MG CAPSULE PO ×2 (07:57→19:59)
[2023-12-05 08:07] LABS: Glucose Point of Care 176 mg/dl (65-105)
[2023-12-05] MEDS: INSULIN ASPART (*BKC) 100 UNITS/ML 8 UNITS SUB-Q ×3 (08:54→17:18)
[2023-12-05 11:56] LABS: Glucose Point of Care 139 mg/dl (65-105)
--- NOTE | 2023-12-05 14:42 | PM.IMPN ---
Progress Note: A&P Assessment and Plan (1) Syncope: Code(s): R55 - Syncope and collapse Status: Acute (2) Orthostatic hypotension: Code(s): I95.1 - Orthostatic hypotension Status: Acute (3) Type 2 diabetes mellitus: Code(s): E11.9 - Type 2 diabetes mellitus without complications Status: Acute (4) Right thyroid nodule: Code(s): E04.1 - Nontoxic single thyroid nodule Status: Acute Plan Syncope continue telemetry monitoring check echo in the a.m. EKG p.r.n. if patient complains of chest pain or syncopal episode occurs continue monitor vitals q.4 hours Refused echo Previous echo: 10/202324 Grade 1 diastolic LVEF 60-65, mild AR, mild MR, Mild TR Orthostatic hypertension HX of Resumed midodrine Diabetes Accu-Cheks a.c. HS sliding scale insulin hold oral diabetic medications resume patient's home long-acting Hemoglobin A1c goal Diabetic diet consult to dietitian Watch for hypoglycemia/hypoglycemic protocol ordered Thyroid nodule Head and neck CT showed a 3 cm right thyroid nodule which can be worked up as an outpatient. Code status: Full code per patient DVT prophylaxis: SCD's Stress ulcer prophylaxis: Protonix 40 daily PT/OT notes: PT/OT rehab/SNF Disposition: Patient continues admission currently waiting on Rehab vs SNF CC consulted. Time Spent With Patient Time with patient: 15 - 25 minutes Subjective Date/time seen: 12/05/23 14:42 Interval history: 12/04: Patient in no acute distress with no complaints denies any further dizziness or syncopal episode. BP did run soft again in the morning but rebounded since asymptomatic at time of event. Patient refused Echo, patient with history of hypotension currently on midodrine at home. Recommended Danny hose will ambulating. Review of Systems Review of Systems: 12 systems were reviewed and are negative except for as per HPI. Exam Narrative: General: Chronically ill-appearing male in the semi-Marshall position in bed. HEENT: Patient is legally blind. Tacky mucous membranes. Neck: Supple. No obvious bruits. Respiratory: Lungs are clear to auscultation bilaterally. Cardiovascular: Regular rate and rhythm with S1-S2. No significant murmurs. Gastrointestinal: Abdomen is soft, nontender, and nondistended with positive bowel sounds. No guarding or rebound tenderness. Skin: Warm and dry. Generalized pallor. Extremities: No cyanosis, clubbing, or significant edema. Radial and pedal pulses intact. Neurological: Alert. Cranial nerves 2-12 are grossly intact. Generalized weakness without gross focal deficits. Psychiatric: Cooperative with appropriate mood and flat affect. Objective Data Vital Signs Vital Signs: Vital Signs - 24 hr 12/04/23 20:38 12/04/23 20:00 12/05/23 00:00 Temperature 97.9 F Pulse Rate 85 78 Respiratory Rate 18 Blood Pressure 154/80 H Pulse Oximetry 98 Oxygen Delivery Room Air 12/05/23 04:00 12/05/23 05:05 12/05/23 05:25 Temperature 97.9 F 97.9 F Pulse Rate 85 84 84 Respiratory Rate 17 17 Blood Pressure 122/69 122/69 Pulse Oximetry 98 98 Oxygen Delivery 12/05/23 05:08 12/05/23 08:00 12/05/23 10:30 Temperature 97.9 F Pulse Rate 83 87 Respiratory Rate 17 Blood Pressure 105/59 L 125/70 Pulse Oximetry 97 Oxygen Delivery Room Air 12/05/23 10:35 12/05/23 10:36 12/05/23 08:00 Temperature Pulse Rate 87 90 Respiratory Rate Blood Pressure 73/36 L 79/39 L Pulse Oximetry 96 Oxygen Delivery 12/05/23 12:00 12/05/23 10:50 Temperature Pulse Rate 86 Respiratory Rate Blood Pressure 115/65 Pulse Oximetry Oxygen Delivery Intake/Output Intake/Output: Intake & Output 12/02/23 12/03/23 12/04/23 12/05/23 23:59 23:59 23:59 23:59 Intake Total 2850 540 Output Total 600 2000 400 Balance -600 850 140 Meds/Results Medications: Active Medicatio
[2023-12-05 17:00] LABS: Glucose Point of Care 123 mg/dl (65-105)
[2023-12-05] MEDS: SENNOSIDES 8.6 MG TABLET PO (19:59)
[2023-12-05 20:11] LABS: Glucose Point of Care 151 mg/dl (65-105)
[2023-12-05] MEDS: INSULIN GLARGINE (*BKC) 100 UNITS/ML 30 UNITS SUB-Q (20:43)
[2023-12-06] VITALS (10 sets, daily range): BP systolic 90–166; BP diastolic 51–86; PULSE 84–98; RESP 14–20; TEMP 36.1–36.7; O2SAT 97–100
[2023-12-06 05:38] LABS: Basophils Percent Auto 0.5 % (0.2-1.2); Eosinophils Absolute Auto 0.1 K/mm3 (0-0.3); Eosinophils Percent Auto 2.2 % (0-4.4); Hematocrit 41.2 % (42.0-52.0); Hemoglobin 12.7 g/dL (14.0-18.0); Immature Granulocyte Absolute 0.02 K/mm3 (0.00-0.031); Immature Granulocyte Percent A 0.3 % (0-0.5); Lymphocytes Absolute Auto 1.41 K/mm3 (0.9-3.2); Lymphocytes Percent Auto 22.3 % (18.3-44.2); Mean Corpuscular HGB Conc 30.8 g/dl (32-36); Mean Corpuscular Hemoglobin 26.9 pg (26-34); Mean Corpuscular Volume 87.3 fl (80-100); Mean Platelet Volume 11.3 fl (7.4-10.4); Monocytes Absolute Auto 0.6 K/mm3 (0.1-0.6); Monocytes Percent Auto 9.2 % (2.6-8.5); Neutrophils Absolute Auto 4.1 K/mm3 (1.3-6.7); Neutrophils Percent Auto 65.5 % (45.5-73.1); Platelet Count Result 226 k/mm3 (150-375); Red Blood Count 4.72 M/mm3 (4.6-6.20); Red Cell Distribution Width 13.4 % (11.5-14.5); White Blood Count 6.3 K/mm3 (4.5-10.0)
[2023-12-06 05:48] LABS: Anion Gap 5 mmol/L (4-12); Blood Urea Nitrogen 15 mg/dL (9-20); Calcium 9.6 mg/dL (8.4-10.2); Carbon Dioxide 33 mmol/L (22-30); Chloride 93 mmol/L (98-107); Estimated CRCL calculation 51 ml/min; Estimated Glomerular Filt Rate > 60; Glucose 261 mg/dL (65-110); Potassium 4.3 mmol/L (3.4-5.0); Sodium 131 mmol/L (137-145)
[2023-12-06 07:47] LABS: Glucose Point of Care 273 mg/dl (65-105)
--- NOTE | 2023-12-06 07:57 | PM.IMPN ---
Progress Note: A&P Assessment and Plan (1) Syncope: Code(s): R55 - Syncope and collapse Status: Acute (2) Orthostatic hypotension: Code(s): I95.1 - Orthostatic hypotension Status: Acute (3) Type 2 diabetes mellitus: Code(s): E11.9 - Type 2 diabetes mellitus without complications Status: Acute (4) Right thyroid nodule: Code(s): E04.1 - Nontoxic single thyroid nodule Status: Acute Plan Syncope continue telemetry monitoring check echo in the a.m. EKG p.r.n. if patient complains of chest pain or syncopal episode occurs continue monitor vitals q.4 hours Refused echo Previous echo: 10/202324 Grade 1 diastolic LVEF 60-65, mild AR, mild MR, Mild TR Orthostatic hypertension HX of Resumed midodrine Danny hose with ambulation Diabetes Accu-Cheks a.c. HS sliding scale insulin hold oral diabetic medications resume patient's home long-acting Hemoglobin A1c goal Diabetic diet consult to dietitian Watch for hypoglycemia/hypoglycemic protocol ordered Thyroid nodule Head and neck CT showed a 3 cm right thyroid nodule which can be worked up as an outpatient. Code status: Full code per patient DVT prophylaxis: SCD's Stress ulcer prophylaxis: Protonix 40 daily PT/OT notes: PT/OT rehab/SNF Disposition: Patient continues admission accepted to [facility] bed available 12/06. Time Spent With Patient Time with patient: 15 - 25 minutes Subjective Date/time seen: 12/06/23 07:57 Interval history: 12/04: Patient in no acute distress with no complaints denies any further dizziness or syncopal episode. BP did run soft again in the morning but rebounded since asymptomatic at time of event. Patient refused Echo, patient with history of hypotension currently on midodrine at home. Recommended Danny hose will ambulating. 12/05: Patient with no complaints, denies CP and SOB. Labs unremarkable and vitals unchanged continues to have episodes of hypotension chronic asymptomatic. Insurance auth received and patient will discharge to [facility] tomorrow when bed is available. Review of Systems Review of Systems: 12 systems were reviewed and are negative except for as per HPI. All systems reviewed & are unremarkable except as noted in HPI and below Exam Narrative: General: Chronically ill-appearing male in the semi-Marshall position in bed. HEENT: Patient is legally blind. Tacky mucous membranes. Neck: Supple. No obvious bruits. Respiratory: Lungs are clear to auscultation bilaterally. Cardiovascular: Regular rate and rhythm with S1-S2. No significant murmurs. Gastrointestinal: Abdomen is soft, nontender, and nondistended with positive bowel sounds. No guarding or rebound tenderness. Skin: Warm and dry. Generalized pallor. Extremities: No cyanosis, clubbing, or significant edema. Radial and pedal pulses intact. Neurological: Alert. Cranial nerves 2-12 are grossly intact. Generalized weakness without gross focal deficits. Psychiatric: Cooperative with appropriate mood and flat affect. Objective Data Vital Signs Vital Signs: Vital Signs - 24 hr 12/05/23 08:00 12/05/23 10:30 12/05/23 10:35 Temperature Pulse Rate 87 Respiratory Rate Blood Pressure 125/70 73/36 L Pulse Oximetry Oxygen Delivery Room Air 12/05/23 10:36 12/05/23 08:00 12/05/23 12:00 Temperature Pulse Rate 87 90 86 Respiratory Rate Blood Pressure 79/39 L Pulse Oximetry 96 Oxygen Delivery 12/05/23 10:50 12/05/23 14:00 12/05/23 16:00 Temperature 96.2 F L Pulse Rate 88 80 Respiratory Rate 18 Blood Pressure 115/65 115/64 Pulse Oximetry 99 Oxygen Delivery 12/05/23 20:00 12/05/23 20:37 12/05/23 20:37 Temperature 96.9 F L Pulse Rate 87 88 Respiratory Rate 12 Blood Pressure 123/68 88/48 L 89/47 L Pulse Oximetry 97 96 Oxygen Delivery 12/05/23 20:44 12/05/23 20:
[2023-12-06] MEDS: ASPIRIN 81 MG CHEWABLE TABLET 325 MG PO (08:42)
[2023-12-06] MEDS: MIDODRINE HCL 2.5 MG TABLET 7.5 MG PO ×3 (08:43→18:29)
[2023-12-06] MEDS: PANTOPRAZOLE 40 MG TABLET PO ×2 (08:43→20:16)
[2023-12-06] MEDS: GABAPENTIN 300 MG CAPSULE PO ×2 (08:43→20:16)
[2023-12-06] MEDS: CITALOPRAM HYDROBROMIDE 20 MG TABLET PO (08:43)
[2023-12-06] MEDS: INSULIN ASPART (*BKC) 100 UNITS/ML SUB-Q ×4 (08:44→20:19)
[2023-12-06] MEDS: INSULIN ASPART (*BKC) 100 UNITS/ML 8 UNITS SUB-Q ×3 (08:44→18:29)
[2023-12-06 11:40] LABS: Glucose Point of Care 378 mg/dl (65-105)
[2023-12-06 16:29] LABS: Glucose Point of Care 273 mg/dl (65-105)
[2023-12-06 19:26] LABS: Glucose Point of Care 371 mg/dl (65-105)
[2023-12-06] MEDS: HYDROcodone/acetaminophen (*CRX) 5-325 MG TABLET 1 TAB PO (20:16)
[2023-12-06] MEDS: SENNOSIDES 8.6 MG TABLET PO (20:16)
[2023-12-06] MEDS: INSULIN GLARGINE (*BKC) 100 UNITS/ML 30 UNITS SUB-Q (20:18)
[2023-12-06] MEDS: TOLNAFTATE 1% POWDER 45 GM BTL 1 APPLIC TOPICAL (21:36)
[2023-12-07] VITALS: PULSE 85
[2023-12-07 04:00] VITALS: PULSE 91
[2023-12-07 05:37] VITALS: BP 147/81; PULSE 94; RESP 16; TEMP 36.3; O2SAT 95
[2023-12-07 05:38] LABS: Basophils Percent Auto 0.7 % (0.2-1.2); Eosinophils Absolute Auto 0.2 K/mm3 (0-0.3); Eosinophils Percent Auto 3.2 % (0-4.4); Hematocrit 39.7 % (42.0-52.0); Hemoglobin 12.3 g/dL (14.0-18.0); Immature Granulocyte Absolute 0.02 K/mm3 (0.00-0.031); Immature Granulocyte Percent A 0.4 % (0-0.5); Lymphocytes Absolute Auto 1.19 K/mm3 (0.9-3.2); Lymphocytes Percent Auto 20.9 % (18.3-44.2); Mean Corpuscular Hemoglobin 27.1 pg (26-34); Mean Corpuscular Volume 87.4 fl (80-100); Mean Platelet Volume 11.3 fl (7.4-10.4); Monocytes Absolute Auto 0.5 K/mm3 (0.1-0.6); Monocytes Percent Auto 9.3 % (2.6-8.5); Neutrophils Absolute Auto 3.7 K/mm3 (1.3-6.7); Neutrophils Percent Auto 65.5 % (45.5-73.1); Platelet Count Result 231 k/mm3 (150-375); Red Blood Count 4.54 M/mm3 (4.6-6.20); Red Cell Distribution Width 13.5 % (11.5-14.5); White Blood Count 5.7 K/mm3 (4.5-10.0)
[2023-12-07 05:45] LABS: Anion Gap 4 mmol/L (4-12); Blood Urea Nitrogen 16 mg/dL (9-20); Calcium 9.8 mg/dL (8.4-10.2); Carbon Dioxide 33 mmol/L (22-30); Chloride 97 mmol/L (98-107); Estimated CRCL calculation 51 ml/min; Estimated Glomerular Filt Rate > 60; Glucose 189 mg/dL (65-110); Potassium 3.9 mmol/L (3.4-5.0); Sodium 134 mmol/L (137-145)
[2023-12-07 07:40] LABS: Glucose Point of Care 252 mg/dl (65-105)
[2023-12-07 08:00] VITALS: BP 141/77; PULSE 95; PULSE 96; RESP 16; TEMP 36.8; O2SAT 100
--- NOTE | 2023-12-07 08:01 | PM.DS ---
DS: Admitting Diagnosis Discharge Date 12/07/2023 Admitting Diagnosis Syncope/fall DS: Discharge Diagnosis Discharge Diagnosis (1) Syncope: Code(s): R55 - Syncope and collapse Status: Acute (2) Orthostatic hypotension: Code(s): I95.1 - Orthostatic hypotension Status: Acute (3) Type 2 diabetes mellitus: Code(s): E11.9 - Type 2 diabetes mellitus without complications Status: Acute (4) Right thyroid nodule: Code(s): E04.1 - Nontoxic single thyroid nodule Status: Acute Plan Syncope continue telemetry monitoring check echo in the a.m. EKG p.r.n. if patient complains of chest pain or syncopal episode occurs continue monitor vitals q.4 hours Refused echo Previous echo: 10/202324 Grade 1 diastolic LVEF 60-65, mild AR, mild MR, Mild TR Orthostatic hypertension HX of Resumed midodrine Danny hose with ambulation Diabetes Accu-Cheks a.c. HS sliding scale insulin hold oral diabetic medications resume patient's home long-acting Hemoglobin A1c goal Diabetic diet consult to dietitian Watch for hypoglycemia/hypoglycemic protocol ordered Thyroid nodule Head and neck CT showed a 3 cm right thyroid nodule which can be worked up as an outpatient. Disposition: Patient continues admission accepted to [facility] bed available 12/06. DS: Summary Hospital Course Reason for hospitalization: Syncope/fall Hospital Course: Admission; Medical Chart This is an 83-year-old male with history of stroke, insulin-dependent diabetes, hypertension, hyperlipidemia, and gastroesophageal reflux disease who presented to the emergency department via EMS from [facility] for evaluation after syncopal episode. The patient provides the following history. He is at that facility for rehab following hospitalization in mid October 2023 with aspiration pneumonia, hyponatremia, and orthostatic hypotension. He was started on midodrine during that stay and has continued on that medication to my knowledge. Today there were plans to discharge the patient back home. Not long prior to arrival he went from a sitting to standing position and had a brief episode of unresponsiveness. Staff were nearby and it does not sound as though he sustained a fall. Blood pressure once he came to was 88/60. With further questioning he endorses frequent episodes of dizziness and lightheadedness with position changes which has been going on for quite some time. He denies headache, vertigo, cold and flu symptoms, chest and pleuritic pain, shortness of breath, cough, abdominal pain, nausea, vomiting, diarrhea, and dysuria. In the ED: Blood pressure was 146/85 on arrival however he has orthostatic with a drop in blood pressure to 88/48 upon standing. Labs were significant for WBC count of 6.1, hemoglobin 12.5, D-dimer 0.93, BUN 25, creatinine 1.10, glucose 249, lactic acid 1.6, calcium 10.6, proBNP 181. CTA of the head and neck showed no acute intracranial process, no large vessel intracranial occlusion, high-grade stenosis, or aneurysm. 3 cm right thyroid nodule was noted. He was given a 500 mL normal saline bolus and 7.5 mg midodrine which he takes at home and he is being admitted in this setting for further evaluation and monitoring. Course: Patient with history of orthostatic hypotension continued to have hypotensive episodes but was asymptomatic was resumed on his midodrine a echo had been ordered but patient refused but Previous echo: 10/202324 Grade 1 diastolic LVEF 60-65, mild AR, mild MR, Mild TR. Of note patient had 3cm RT thyroid nodule that will be worked-up outpatient. Patient in no acute distress with no complaints denies any further dizziness or syncopal episode.? BP did run soft again in the morning but rebounded since asymptomatic at time of event.Recommended Danny hose will ambulating. Patient with no complaints, denies CP and SOB.? Labs unremarkable and vitals unchanged continues
[2023-12-07] MEDS: MIDODRINE HCL 2.5 MG TABLET 7.5 MG PO (08:44)
[2023-12-07] MEDS: ASPIRIN 81 MG CHEWABLE TABLET 325 MG PO (08:44)
[2023-12-07] MEDS: PANTOPRAZOLE 40 MG TABLET PO (08:44)
[2023-12-07] MEDS: GABAPENTIN 300 MG CAPSULE PO (08:44)
[2023-12-07] MEDS: CITALOPRAM HYDROBROMIDE 20 MG TABLET PO (08:44)
[2023-12-07] MEDS: INSULIN ASPART (*BKC) 100 UNITS/ML 8 UNITS SUB-Q (08:47)
[2023-12-07] MEDS: INSULIN ASPART (*BKC) 100 UNITS/ML SUB-Q (08:48)
[2023-12-07] MEDS: TOLNAFTATE 1% POWDER 45 GM BTL 1 APPLIC TOPICAL (08:52)
[2023-12-07 09:43] VITALS: BP 120/59
[2023-12-07 09:44] VITALS: BP 90/40
[2023-12-07 10:59] LABS: SARS-CoV-2 RNA PCR Negative (Negative)
== END 2023-12-07 11:10 | DRG 312 ==
LOC: ANHED 11:15 → ANH3MEDSUR 15:00
PROVIDERS: Nurse Practitioner; Physician Assistant; Admitting Provider Internal Medicine; Emergency Provider Emergency Medicine; Visit Provider Nurse Practitioner Family
DX: I95.1 Orthostatic hypotension (principal); E11.42 Type 2 diabetes mellitus with diabetic polyneuropathy; I10 Essential (primary) hypertension; K21.9 Gastro-esophageal reflux disease without esophagitis; E04.1 Nontoxic single thyroid nodule; E78.00 Pure hypercholesterolemia, unspecified; Z20.822 Contact with and (suspected) exposure to COVID-19; Z11.52 Encounter for screening for COVID-19; Z79.82 Long term (current) use of aspirin; Z86.73 Personal history of transient ischemic attack (TIA), and cerebral infarction without residual deficits
CPT/HCPCS: 36415; 70496; 70498; 71275; 80048; 80053; 81001; 82948; 83605; 83735; 83880; 85025; 85027; 85380; 85610; 85730; 87635; 87637; 97110; 97116; 97162; 97166; 97530; 97535; 99285; A9270; G0378; J1815; J7030; Q9967